=== PATIENT | male | born 1935 | race Caucasian/White ===

== ENCOUNTER 2016-06-29 05:17 | Observation (INO) | payer MEDICARE, OTHER ==
[~2016-06-29] VITALS: Ht 160 cm; Wt 78.5 kg
[~2016-06-29 05:17] MED LIST: APIX5TAB PO; CARV25TA79 PO; CLOP75TA27 PO; CRES10 PO; SPIR25TA PO; VALS40TA2 PO
--- NOTE | 2016-06-29 06:23 | ERA ---
ER Documentation Chief Complaint Date/Time DATE: 06/29/16 TIME: 06:18 Chief Complaint states pacemaker/defibrillator gave him a shock x 1 hour ago HPI This is an 81-year-old male, [place]an-speaking, with history of hypertension and coronary artery disease with a previous coronary artery bypass in August 2001. The patient usually receives his care at [facility]. He was seen and evaluated by his group therapist yesterday for a regular scheduled checkup and there was no abnormalities according to the patient. He indicates that he originally had an AICD placed in 2005. The AICD was replaced in March 2012. The patient indicates that 1 hour prior to arrival, at 4:15 AM, the patient awoke to a shock sensation from his AICD firing. He indicates he has had no recent chest pain or pressure that radiated to the neck arm back or jaw. He indicates he has had no fevers or shaking or chills. He denies any palpitations. He has no shortness of breath at rest or exertion. He is not currently on antibiotics. He denied any associated symptoms of nausea vomiting or diaphoresis. He indicates his battery has not been changed in his AICD since 2011 but has stated by his group therapist the battery is good for 7 years. ROS All systems reviewed and are negative except as per history of present illness. Medications Home Meds Reported Medications Isosorbide Mononitrate* (Isosorbide Mononitrate*) 60 Mg Tab.er.24h, 60 MG PO DAILY, TAB 06/29/16 Dronedarone Hydrochloride* (Multaq*) 400 Mg Tablet, 400 MG PO BID WITH MEALS, TAB 06/29/16 Valsartan* (Diovan*) 80 Mg Tablet, 80 MG PO BID, TAB 06/29/16 Spironolactone* (Aldactone*) 25 Mg Tablet, 12.5 MG PO DAILY, #60 TAB 06/29/16 Carvedilol* (Carvedilol*) 25 Mg Tablet, 25 MG PO BID, #60 TAB 06/29/16 Apixaban* (Eliquis*) 5 Mg Tablet, 5 MG PO BID, TAB 06/29/16 Clopidogrel Bisulfate (Clopidogrel) 75 Mg Tablet, 75 MG PO DAILY, TAB 04/22/14 Rosuvastatin Calcium* (Crestor*) 10 Mg Tablet, 10 MG PO HS, TAB 04/22/14 Discontinued Reported Medications Carvedilol* (Carvedilol*) 25 Mg Tablet, 12.5 MG PO BID, TAB 04/22/14 Valsartan* (Diovan*) 40 Mg Tablet, 40 MG PO BID, TAB 04/22/14 Spironolactone* (Aldactone*) 25 Mg Tablet, 25 MG PO DAILY, TAB 04/22/14 Apixaban* (Eliquis*) 5 Mg Tablet, 5 MG PO DAILY, TAB 04/22/14 Allergies Allergies: Coded Allergies: aspirin (Verified Allergy, Severe, BREATHING/SWELLING, 06/29/16) PMhx/Soc History of Surgery: Yes (PACEMAKER, CABG) Anesthesia Reaction: No Hx Neurological Disorder: No Hx Respiratory Disorders: No Hx Cardiac Disorders: No Hx Psychiatric Problems: No Hx Miscellaneous Medical Probl: Yes (HTN) Hx Alcohol Use: No Hx Substance Use: No Hx Tobacco Use: No Smoking Status: Never smoker Physical Exam Vitals Vital Signs Date Time Temp Pulse Resp B/P Pulse Ox O2 Delivery O2 Flow Rate FiO2 06/29/16 09:55 98.6 57 16 120/88 100 Room Air 06/29/16 06:41 98.6 69 16 115/81 100 Room Air 06/29/16 05:48 71 19 118/87 100 Room Air 06/29/16 05:23 97.6 66 20 137/81 96 Physical Exam Constitutional:Well-developed. Well-nourished. HEENT:Normocephalic. Atraumatic.Pupils were equal round reactive to light. Moist mucous membranes.No tonsillar exudates. Neck: No nuchal rigidity. No lymphadenopathy. No posterior cervical spine tenderness or step-offs. Respiratory: Not using accessory muscles of respiration.Lungs were clear to auscultation bilaterally. No rhonchi. No rales. No wheezing. Cardiovascular: Regular rate regular rhythm.No murmurs. No rubs were appreciated.S1, S2 normal. Distal pulses are palpable 2+ bilaterally. GI: Abdomen was soft. Nontender. Non Distended. No pulsatile abdominal masses or bruits. No rebound. No guarding. Bowel sounds were present and normal. Muscle skeletal: Full range of motion of both the upper and lower extremities bilaterally.Normal muscle tone.No assymetrical calf tenderness or swelling. Skin: No petechia, no purpura. No lesions on the palms or the soles of the feet. No maculopapular rash. NEURO: Patient was alert, awake, orientated x3.No facial droop. Gait observed and normal with no ataxia.Speech had regular rate and rhythm. No focal neurological deficits. Result Diagram: 06/29/1615 06/29/1615 Results 24 hrs Laboratory Tests Test 06/29/16 06:15 Activated Partial Thromboplast Time 29.1Sec Anion Gap 16 Basophils # 0.110^3/ul Basophils % 1.0% Blood Urea Nitrogen 27mg/dl Calcium Level 8.8mg/dl Carbon Dioxide Level 26mmol/L Chloride Level 103mmol/L Creatine Kinase 75IU/L Creatine Kinase Index 1.1 Creatinine 1.27mg/dl Creatinine Kinase MB (Mass) 0.81ng/ml Eosinophils # 0.110^3/ul Eosinophils % 1.7% Glucose Level 99mg/dl Hematocrit 40.4% Hemoglobin 13.1g/dl INR International Normalized Ratio 1.30 Lymphocytes # 1.410^3/ul Lymphocytes % 19.4% Magnesium Level 1.8mg/dl Mean Corpuscular Hemoglobin 31.2pg Mean Corpuscular Hemoglobin Concent 32.4g/dl Mean Corpuscular Volume 96.2fl Mean Platelet Volume 10.6fl Monocytes # 0.910^3/ul Monocytes % 12.3% Neutrophils # 4.710^3/ul Neutrophils % 65.3% Nucleated Red Blood Cells # 0.010^3/ul Nucleated Red Blood Cells % 0.0/100WBC Platelet Count 18027^3/UL Potassium Level 4.0mmol/L Prothrombin Time 16.3Sec Prothrombin Time Ratio 1.3 Red Blood Count 4.2010^6/ul Red Cell Distribution Width 13.2% Sodium Level 141mmol/L Troponin I 0.021ng/ml White Blood Count 7.210^3/ul Procedures/MDM The patient presented to the emergency department with a single shock sensation of his AICD. My clinical evaluation and workup was to distinguish minor causes of chest pain from acute life threatening conditions such as myocardial infarction, pulmonary embolism, aortic dissection, esophageal rupture, cardiac tamponade. The patient was placed on a cardiac catheterization technician and continuous pulse oximetry. IV access established by nursing staff. 12 Lead EKG tracing ordered and reviewed by myself showed: Normal sinus rhythm of 68 bpm and no arrhythmia. OR interval prolonged at 256 ms QRS duration normal. No ST segment elevation No ST segment depression. No changes consistent with acute ischemia. Ancillary laboratory work had been ordered and reviewed by myself there is no electrolyte abnormalities. There is no evidence of leukocytosis. Magnesium was normal. Cardiac enzymes not elevated. The patient's [employer] identification card indicated the patient's model number was [id number] placed March 24, 2012. I have placed a call to the [email or web address] to inform them to interrogate the AICD. They indicated there would be a delay given that they are at another hospital in the OR at this moment time. Observation Note: Time: 6 hours Family Hx: No Hypertension Evaluation: Multiple exams showed no chest pain but while in the cardiac catheterization technician the patient did appear to have irregular rhythms. I repeated the EKG and at the time the patient was sinus bradycardia with a first-degree AV block with ischemic changes in the lateral leads. Therefore I did feel the patient required admission for observation and interrogation of the patient's AICD. The [employer] techBrooke, states she will come to evaluate the patient during his hospital observation. The patient will be admitted for observation under the care of the hospitalist Dr. Rogers. Departure Diagnosis: Primary Impression: AICD malfunction Qualified Code: T82.9XXA - AICD malfunction, initial encounter Condition: Serious DEANGELO YOUNG Jun 29, 2016 06:23
--- NOTE | 2016-06-29 06:26 | RADRPT ---
PROCEDURE: CHEST - 1 VIEW CLINICAL INDICATION: 81-year-old male with chest pain. TECHNIQUE: A single frontal AP view of the chest was performed portably. The images were reviewed on a PACS workstation. COMPARISON: Chest x-ray April 22, 2014. FINDINGS: There is a left-sided AICD device. The patient has had a prior median sternotomy. The cardiomedias tinal silhouette is enlarged. The thoracic aortic arch is mildly calcified. There is a shallow ins piration. There is mild bibasilar subsegmental atelectasis. There is no evidence for an infiltrate . There is no evidence for congestive heart failure. There is no evidence for pneumothorax. IMPRESSION: 1. Left-sided AICD device. 2. Status post median sternotomy. 3. Cardiomegaly. 4. Calcified thoracic aortic arch. 5. Shallow inspiration. 6. Mild bibasilar subsegmental atelectasis. .Jhonny Moraes MD, Date Time Electronically viewed and signed by .Jhonny Moraes MD, on 06/29/2016 06:26 .M/
[2016-06-29 06:27] LABS: ADD SCAN DIFF NO
[2016-06-29 06:33] LABS: BASOPHIL # 0.1 10^3/ul (0.0-0.1); EOSINOPHILS # 0.1 10^3/ul (0.0-0.5); EOSINOPHILS % 1.7 % (0.0-7.0); HEMATOCRIT 40.4 % (42.0-52.0); HEMOGLOBIN 13.1 g/dl (14.0-18.0); LYMPHOCYTES # 1.4 10^3/ul (0.8-2.9); LYMPHOCYTES % 19.4 % (15.0-51.0); MEAN CORPUSCULAR HEMOGLOBIN 31.2 pg (29.0-33.0); MEAN CORPUSCULAR HGB CONC 32.4 g/dl (32.0-37.0); MEAN CORPUSCULAR VOLUME 96.2 fl (82.0-101.0); MEAN PLATELET VOLUME 10.6 fl (7.4-10.4); MONOCYTE # 0.9 10^3/ul (0.3-0.9); MONOCYTES % 12.3 % (0.0-11.0); NEUTROPHIL # 4.7 10^3/ul (1.6-7.5); NEUTROPHILS % 65.3 % (39.0-77.0); PLATELET COUNT 152 10^3/UL (140-415); RED CELL DISTRIBUTION WIDTH 13.2 % (11.5-14.5); WHITE BLOOD COUNT 7.2 10^3/ul (4.8-10.8)
[2016-06-29 06:41] LABS: INR 1.3; PROTIME 16.3 Sec (12.2-14.2); PT RATIO 1.3
[2016-06-29 06:42] LABS: PARTIAL THROMBOPLASTIN TIME 29.1 Sec (25.0-35.0)
[2016-06-29 06:45] LABS: CREATININE 1.27 mg/dl (0.61-1.24)
[2016-06-29 06:46] LABS: CALCIUM 8.8 mg/dl (8.4-10.2); MAGNESIUM 1.8 mg/dl (1.7-2.5)
[2016-06-29 06:58] LABS: TROPONIN-I 0.02 ng/ml (0.00-0.12); TROPONIN-I 0.021 ng/ml (0.00-0.12)
[2016-06-29 07:09] LABS: CK-MB 0.81 ng/ml (0.0-2.4)
[2016-06-29] MEDS ORDERED: CARV25TA79 PO (09:44)
[2016-06-29] MEDS ORDERED: APIX5TAB PO (09:44)
[2016-06-29] MEDS ORDERED: SPIR25TA PO (09:45)
[2016-06-29] MEDS ORDERED: VALS80TA2 PO (09:46)
[2016-06-29] MEDS ORDERED: DRON400T2 PO (09:46)
[2016-06-29] MEDS ORDERED: ISOS60TA PO (09:47)
--- NOTE | 2016-06-29 17:24 | HP ---
Date/Time of Note Date/Time of Note DATE: 06/29/16 TIME: 17:06 Assessment/Plan VTE Prophylaxis VTE Prophylaxis Intervention: LMWH Lines/Catheters IV Catheter Type (from Nrs): Saline Lock Assessment/Plan Assessment/Plan 81 yo M awakened by shock from AICD 1. NVST 2. known CAD s/p CABG in the past + likely Ischemic CM 3. Asymptomatic bradycardia: likely 2/2 meds 4. Mild chronic renal insufficiency 5. Chronic NC anemia 6. Dyslipidemia 7. Probable paroxysmal Afib PLAN: * will admit for Obs / r/o ACS / obtain cardio review / 2D echo * Continue home multaq and coreg (but reduce dose of coreg to previous dose bc of bradycardia) * Patient on eliquis and plavix , continue both * monitor electrolytes * Provide PRN pain control/ antiemetics/ antipyretics/ supportive care * Further evaluation and treatment will be based on clinical course PROPHYLAXIS: eliquis / protonix Plan of care has been discussed with patient, questions answered and patient has verbalized understanding. Total time spent on this evaluation >35mins HPI/ROS Admit Date/Time Admit Date/Time 06/29/16 Hx of Present Illness PRESENTING COMPLAINT: Awoken by his defibrillator firing HISTORY OF PRESENTING COMPLAINT: 81 yo M with a PMH of HTN and CAD s/p CABG who was awoken this am by a shock from his AICD. This was said to have been placed in 2005 and replaced in 2011. He denies chest pain, he was seen by his routine editor index yesterday and his coreg increased from 12.5mg to 25 mg. He is currently comfortable now without SOB, diaphoresis, nausea or vomiting. No headaches or dizziness or jaw pain. AICD has been interrogated by [employer] and patient was found to have NSVT at the time of incident per report ROS 12 point review if systems was done and pertinent findings are as noted. PMH/Family/Social Past Medical History * HTN * CAD * Dyslipidemia * ?isch SM s/p AICD Past Surgical History CABG AICD placement Family History Significant Family History: no pertinent family hx Social History Alcohol Use: none Smoking Status: Never smoker Drug Use: none Exam/Review of Systems Vital Signs Vitals VS - Last 72 Hours, by Label Date Time Temp Pulse Resp B/P Pulse Ox O2 Delivery O2 Flow Rate FiO2 06/29/16 16:05 97.8 62 16 112/64 100 Room Air 06/29/16 13:57 98.1 68 16 102/86 100 Room Air 06/29/16 09:55 98.6 57 16 120/88 100 Room Air 06/29/16 06:41 98.6 69 16 115/81 100 Room Air 06/29/16 05:48 71 19 118/87 100 Room Air 06/29/16 05:23 97.6 66 20 137/81 96 Vital Signs Date Time Temp Pulse Resp B/P Pulse Ox O2 Delivery O2 Flow Rate FiO2 06/29/16 16:05 97.8 62 16 112/64 100 Room Air Exam Constitutional: alert, oriented, other (obses), No distress Psych: nl mood/affect Head: atraumatic, normocephalic Eyes: PERRL Neck: non-tender, supple Respiratory: clear to auscultation, diminished breath sounds, No crackles/rales, No wheezing Cardiovascular: nl pulses, regular rate and rhythm, No murmurs/extra sounds Gastrointestinal: bowel sounds, non-tender, soft Extremities: No edema Neurological: nl mental status, nl speech, nl strength Labs Result Diagram: 06/29/1615 06/29/1615 Procedures Procedures Laboratory Tests Test 06/29/16 06:15 Activated Partial Thromboplast Time 29.1Sec Anion Gap 16 Basophils # 0.110^3/ul Basophils % 1.0% Blood Urea Nitrogen 27mg/dl Calcium Level 8.8mg/dl Carbon Dioxide Level 26mmol/L Chloride Level 103mmol/L Creatine Kinase 75IU/L Creatine Kinase Index 1.1 Creatinine 1.27mg/dl Creatinine Kinase MB (Mass) 0.81ng/ml Eosinophils # 0.110^3/ul Eosinophils % 1.7% Glucose Level 99mg/dl Hematocrit 40.4% Hemoglobin 13.1g/dl INR International Normalized Ratio 1.30 Lymphocytes # 1.410^3/ul Lymphocytes % 19.4% Magnesium Level 1.8mg/dl Mean Corpuscular Hemoglobin 31.2pg Mean Corpuscular Hemoglobin Concent 32.4g/dl Mean Corpuscular Volume 96.2fl Mean Platelet Volume 10.6fl Monocytes # 0.910^3/ul Monocytes % 12.3% Neutrophils # 4.710^3/ul Neutrophils % 65.3% Nucleated Red Blood Cells # 0.010^3/ul Nucleated Red Blood Cells % 0.0/100WBC Platelet Count 79620^3/UL Potassium Level 4.0mmol/L Prothrombin Time 16.3Sec Prothrombin Time Ratio 1.3 Red Blood Count 4.2010^6/ul Red Cell Distribution Width 13.2% Sodium Level 141mmol/L Troponin I 0.021ng/ml White Blood Count 7.210^3/ul PROCEDURE: CHEST - 1 VIEW CLINICAL INDICATION: 81-year-old male with chest pain. TECHNIQUE: A single frontal AP view of the chest was performed portably. The images were reviewed on a PACS workstation. COMPARISON: Chest x-ray April 22, 2014. FINDINGS: There is a left-sided AICD device. The patient has had a prior median sternotomy. The cardiomediastinal silhouette is enlarged. The thoracic aortic arch is mildly calcified. There is a shallow inspiration. There is mild bibasilar subsegmental atelectasis. There is no evidence for an infiltrate. There is no evidence for congestive heart failure. There is no evidence for pneumothorax. IMPRESSION: 1. Left-sided AICD device. 2. Status post median sternotomy. 3. Cardiomegaly. 4. Calcified thoracic aortic arch. 5. Shallow inspiration. 6. Mild bibasilar subsegmental atelectasis. .Jhonny Moraes MD, Date Time Electronically viewed and signed by .Jhonny Moraes MD, on 06/29/2016 06:26 EKG reviewed and was NSR with rate of 68 and multiple PVCs, no ST elevations or depression, but grossly abn EKG. TORI GANDARA Jun 29, 2016 17:16
[2016-06-29] MEDS ORDERED: SOD CHLORIDE 0.9% 1,000 ML IV SCH (17:30)
[2016-06-29] MEDS ORDERED: DRONEDARONE HYDROCHLORIDE 400 MG TAB PO SCH (18:00)
[2016-06-29 18:11] VITALS: TEMP 97.7
[2016-06-29 18:32] LABS: MAGNESIUM 1.8 mg/dl (1.7-2.5); PHOSPHORUS 3.5 mg/dl (2.5-4.9)
[2016-06-29 18:36] LABS: CREATINE KINASE 67 IU/L (23-200)
[2016-06-29 18:45] LABS: CK-MB 0.51 ng/ml (0.0-2.4)
[2016-06-29 18:50] LABS: TROPONIN-I < 0.010 ng/ml (0.00-0.12)
[2016-06-29 19:01] VITALS: PULSE 69
[2016-06-29 19:52] VITALS: Ht 160 cm; Wt 78.5 kg
[2016-06-29 20:00] VITALS: BP 142/89; RESP 16
[2016-06-29 20:24] VITALS: PULSE 73
[2016-06-29] MEDS ORDERED: ATORVASTATIN 40 MG TAB PO SCH (21:00)
[2016-06-29] MEDS ORDERED: NON-FORMULARY/PATIENT OWN MED (Rosuvastatin Calcium* (Crestor*) 10 MG) PO SCH (21:00)
[2016-06-29] MEDS: DOCUSATE SODIUM 100 MG CAP PO SCH (21:23)
[2016-06-29] MEDS: APIXABAN 5 MG TABLET PO SCH (21:23)
[2016-06-29] MEDS: PANTOPRAZOLE (EC) 40 MG TAB PO SCH (21:24)
[2016-06-29] MEDS: AMIODARONE 200 MG TAB PO SCH (21:24)
[2016-06-29] MEDS: VALSARTAN 80 MG TAB PO SCH (21:32)
[2016-06-29 23:07] VITALS: BP 129/82; RESP 16
[2016-06-30] VITALS (10 sets, daily range): BP systolic 108–143; BP diastolic 63–83; PULSE 57–74; RESP 16
[2016-06-30 06:06] LABS: ADD SCAN DIFF NO
[2016-06-30 06:10] LABS: BASOPHIL # 0.1 10^3/ul (0.0-0.1); BASOPHILS % 0.8 % (0.0-2.0); EOSINOPHILS # 0.1 10^3/ul (0.0-0.5); EOSINOPHILS % 1.9 % (0.0-7.0); HEMOGLOBIN 12.5 g/dl (14.0-18.0); LYMPHOCYTES # 1.5 10^3/ul (0.8-2.9); LYMPHOCYTES % 24.9 % (15.0-51.0); MEAN CORPUSCULAR HEMOGLOBIN 31.8 pg (29.0-33.0); MEAN CORPUSCULAR HGB CONC 32.9 g/dl (32.0-37.0); MEAN CORPUSCULAR VOLUME 96.7 fl (82.0-101.0); MEAN PLATELET VOLUME 10.7 fl (7.4-10.4); MONOCYTE # 0.8 10^3/ul (0.3-0.9); MONOCYTES % 13.7 % (0.0-11.0); NEUTROPHIL # 3.5 10^3/ul (1.6-7.5); NEUTROPHILS % 58.5 % (39.0-77.0); PLATELET COUNT 162 10^3/UL (140-415); RED BLOOD COUNT 3.93 10^6/ul (4.70-6.10); RED CELL DISTRIBUTION WIDTH 13.2 % (11.5-14.5); WHITE BLOOD COUNT 5.9 10^3/ul (4.8-10.8)
[2016-06-30 06:25] LABS: POTASSIUM 3.9 mmol/L (3.5-5.1)
[2016-06-30 06:28] LABS: CALCIUM 8.4 mg/dl (8.4-10.2); CREATININE 1.14 mg/dl (0.61-1.24)
[2016-06-30 06:29] LABS: CHOL/HDL RATIO 2.8 RATIO
[2016-06-30] MEDS: PANTOPRAZOLE (EC) 40 MG TAB PO SCH (06:53)
[2016-06-30 06:54] LABS: THYROID STIMULATING HORMONE 0.965 MIU/L (0.465-4.680)
[2016-06-30] MEDS: DOCUSATE SODIUM 100 MG CAP PO SCH (08:43)
[2016-06-30] MEDS: VALSARTAN 80 MG TAB PO SCH (08:45)
[2016-06-30] MEDS: AMIODARONE 200 MG TAB PO SCH (08:45)
[2016-06-30] MEDS: APIXABAN 5 MG TABLET PO SCH (08:52)
[2016-06-30] MEDS ORDERED: CLOPIDOGREL 75 MG TAB PO SCH (09:00)
[2016-06-30] MEDS ORDERED: SPIRONOLACTONE 25 MG TAB PO SCH (09:00)
[2016-06-30] MEDS ORDERED: ISOSORBIDE MONONITRATE(SR)60 MG TAB PO SCH (09:00)
[2016-06-30] MEDS ORDERED: AMIO200T2 PO (10:52)
[2016-06-30] MEDS ORDERED: CARV25TA79 PO (10:52)
--- NOTE | 2016-06-30 14:50 | CONS ---
Date/Time of Note Date/Time of Note DATE: 06/30/16 TIME: 14:47 Assessment/Plan Assessment/Plan Additional Assessment/Plan 1. VT - 330 msec cycle - s/p appropriate ICD shock - amiodarone started - I spoke with [facility] EP team - pt will be seen tomorrow at [facility] for post VT ablation. 2. known CAD s/p CABG in the past + likely Ischemic CM - no CP now, R/o PR 3. Asymptomatic bradycardia: likely 2/2 meds - ICD for pacing 4. Mild chronic renal insufficiency- stbale now 5. Chronic NC anemia 6. Dyslipidemia 7. Paroxysmal Afib - on anticoagulation, stable Consultation Date/Type/Reason Admit Date/Time Jun 29, 2016 at 17:14 Initial Consult Date 24 HR Interval Summary Free Text/Dictation s/p appropriate ICD shock - amiodarone started - I spoke with [facility] EP team - pt will be seen tomorrow at [facility] for post VT ablation. ROS: No fever, no chills, no nausea, no vomiting, no diarrhea/constipation No recent weight changes No chest pain, no PND, no orthopnea No dizziness, blurred vision No thirst, no heat or cold intolerance Exam/Review of Systems Vital Signs Vitals Vital Signs Date Time Temp Pulse Resp B/P Pulse Ox O2 Delivery O2 Flow Rate FiO2 06/30/16 12:18 62 06/30/16 11:31 97.6 16 108/63 90 06/29/16 18:11 Room Air Exam General: WN/WD/NAD, AOx 3 HEENT: Unicetric/atraumatic/EOMI (follows commands) NECK: JVD elevated, no thyromegaly Lymph: no lymphadenopathy HEART: regular with no S3, II/ systolic murmur at apex, ICD LUNGS: Coarse sounds ABD: soft, NT, ND, +BS : Intact Neuro: non focal SKIN: chronic changes EXT: trace edema Results Result Diagram: 06/30/16 0543 06/30/16 0548 Results 24 hrs Laboratory Tests Test 06/29/16 17:00 06/29/16 18:15 06/30/16 05:32 06/30/16 05:43 Magnesium Level 1.8 Phosphorus Level 3.5 Creatine Kinase 67 Creatine Kinase Index 0.8 Creatinine Kinase MB (Mass) 0.51 Troponin I < 0.010 Hemoglobin A1c 5.8 Basophils # 0.1 Basophils % 0.8 Eosinophils # 0.1 Eosinophils % 1.9 Hematocrit 38.0 L Hemoglobin 12.5 L Lymphocytes # 1.5 Lymphocytes % 24.9 Mean Corpuscular Hemoglobin 31.8 Mean Corpuscular Hemoglobin Concent 32.9 Mean Corpuscular Volume 96.7 Mean Platelet Volume 10.7 H Monocytes # 0.8 Monocytes % 13.7 H Neutrophils # 3.5 Neutrophils % 58.5 Nucleated Red Blood Cells # 0.0 Nucleated Red Blood Cells % 0.0 Platelet Count 162 Red Blood Count 3.93 L Red Cell Distribution Width 13.2 White Blood Count 5.9 Test 06/30/16 05:48 Anion Gap 15 Blood Urea Nitrogen 22 H Calcium Level 8.4 Carbon Dioxide Level 26 Chloride Level 104 Cholesterol Level 90 L Cholesterol/HDL Ratio 2.8 Creatinine 1.14 Glucose Level 93 HDL Cholesterol 32 LDL Cholesterol, Calculated 41 Potassium Level 3.9 Sodium Level 141 Thyroid Stimulating Hormone (TSH) 0.965 Triglycerides Level 87 Medications Medications Current Medications Clopidogrel Bisulfate (plaVIX) 75 mg DAILY PO Last administered on 06/30/16 08 :43; Admin Dose 75 MG; Start 06/30/16 at 09:00 Isosorbide Mononitrate (Imdur) 60 mg DAILY PO Last administered on 06/30/16 08 :44; Admin Dose 60 MG; Start 06/30/16 at 09:00 Spironolactone (Aldactone) 12.5 mg DAILY PO Last administered on 06/30/16 08: 44; Admin Dose 12.5 MG; Start 06/30/16 at 09:00 Valsartan (Diovan) 80 mg BID PO Last administered on 06/30/16 08:45; Admin Dose 80 MG; Start 06/29/16 at 21:00 Apixaban (Eliquis) 5 mg BID PO Last administered on 06/30/16 08:52; Admin Dose 5 MG; Start 06/29/16 at 21:00 Pantoprazole (Protonix Tab) 40 mg BID@,18 PO Last administered on 06/30/16 06:53; Admin Dose 40 MG; Start 06/29/16 at 18:00 Docusate Sodium (Colace) 100 mg BID PO Last administered on 06/30/16 08:43; Admin Dose 100 MG; Start 06/29/16 at 21:00 Amiodarone HCl (Cordarone) 200 mg BID PO Last administered on 06/30/16 08:45; Admin Dose 200 MG; Start 06/29/16 at 21:00 Carvedilol (Coreg) 12.5 mg BID PO Last administered on 06/30/16 08:46; Admin Dose 12.5 MG; Start 06/29/16 at 21:00 Atorvastatin Calcium (Lipitor) 40 mg DAILY@21 PO Last administered on 21:23; Admin Dose 40 MG; Start 06/29/16 at 21:00 ROGER LOCO MD Jun 30, 2016 14:50
--- NOTE | 2016-06-30 15:41 | RADRPT ---
Echocardiogram Report ADDENDUM Patient Name: LUIS DENISE Gender: Male Date: 1935 Study Date: 30-Jun-2016 Streetsweeper Operator: [facility] Location: 503 Ref. Physician: TORI GANDARA Quality: Adequate Procedures: Transthoracic echocardiogram with complete 2D, M-Mode, and doppler examination. Indications: ARRYTHMIA. 2D/M Mode Doppler Measurement Value Normal Ranges Measurement Value Normal Ranges LVIDd 2D 5.3 3.5 - 5.6 cm AV Peak Lloyd 1.1 m/sec LVPWd 2D 1.2 0.6 - 1.1 cm AV Peak PG 4.8 mmHg IVSd 2D 1.2 0.6 - 1.1 cm LVOT Peak Lloyd 0.7 m/sec TR Peak Lloyd 2.5 m/sec TR Peak PG 26.0 mmHg Findings Left Ventricle: Normal left ventricular cavity size. Mild concentric left ventricular hypertrophy. Moderate global left ventricular systolic dysfunction. Ejection fraction is visually estimated at 35 %. Abnormal Diastolic Function. Right Ventricle: Normal right ventricular size. Normal right ventricular systolic function. Pacemaker right heart. Left Atrium: There is mild enlargement of left atrium. Right Atrium: There is mild enlargement of right atrium. Prominent Eustachian valve (normal variant). Mitral Valve: Mild mitral leaflet calcification. Mild mitral annular calcification. Mild to moderate mitral valve regurgitation. Aortic Valve: Trileaflet aortic valve. Trace aortic valve regurgitation. Tricuspid Valve: Tricuspid valve not well visualized. Estimated peak PA systolic pressure 43 mmHg. There is mild tricuspid regurgitation. Pulmonic Valve: There is trace pulmonic regurgitation. Pericardium: Normal pericardium with no significant pericardial effusion. Aorta: Normal aortic root. IVC: Dilated inferior vena cava with poor inspiratory collapse consistent with elevated right atrial pressures. Conclusions 1.Normal left ventricular cavity size. Mild concentric left ventricular hypertrophy. Moderate global left ventricular systolic dysfunction. Ejection fraction is visually estimated at 35 %. Abnormal Diastolic Function. 2.Mild mitral leaflet calcification. Mild mitral annular calcification. Mild to moderate mitral valve regurgitation. 3.Trileaflet aortic valve. Trace aortic valve regurgitation. 4.Tricuspid valve not well visualized. Estimated peak PA systolic pressure 43 mmHg. There is mild tricuspid regurgitation. Electronically Signed By: Patient Name: LUIS DENISE Study Date: 30-Jun-2016 [id number]
--- NOTE | 2016-06-30 20:01 | DS ---
DATE OF ADMISSION: 06/29/2016 DATE OF DISCHARGE: 06/30/2016 PRESENTING COMPLAINT: AICD firing. ADMISSION DIAGNOSES: An 81-year-old male awakened by shock from AICD with: 1. Nonsustained ventricular tachycardia. 2. Known coronary artery disease status post CABG in the past with likely ischemic cardiomyopathy. 3. Asymptomatic bradycardia. 4. Mild chronic renal insufficiency. 5. Chronic normocytic anemia. 6. Dyslipidemia. 7. Probable paroxysmal atrial fibrillation. CONSULTS ON THE CASE: Dr. Osorio Guerrero from Cardiology. INTERVENTIONS: The patient's AICD was interrogated by [employer]. The patient was also admitted for an ACS rule out with 3 sets of cardiac enzymes. He also had a chest x-ray that showed the presence of a left-sided AICD device, status post median sternotomy, cardiomegaly, mild bibasilar subsegment al atelectasis. SHORT HOSPITALIZATION COURSE: This patient is a very pleasant 81-year-old male who came to the emerg ency room after he was woken up from sleep by his shock given to him by his defibrillator. At the ti me of our eval in the ER he had no chest pain. He had no shortness of breath. He felt well, but hi s family thought that he should get checked out because of what had happened. He had just seen his primary car rider at [facility] the day before and his carvedilol has been increased from 12.5 mg to 25 mg, which he had commenced taking that night. He was seen in the ER and his EKG had some PVCs that were mildly concerning and we spoke with his car rider over at [facility] and the decision was made to go ahead and admit him and rule him out for an acute coronary syndrome. We also started him on ami odarone and at this time the patient has done quite well. Cardiology also saw him and the cardiolog ist also spoke with the primary car rider at [facility]. On the monitor he has been in sinus rhythm wit h a heart rate in the 60s. He has had no further episodes of ventricular tachycardia, which was the rhythm when the defibrillator kicked in. He apparently has just had a recent workup including a ___ __ over at [facility] and no further intervention per cardiology is required at this time. The patient is encouraged to go home and stay compliant with his diet and continue routine follow up with his own c ardiologist. He and his family is also encouraged to return to the ER any time if they have any conc erns or if similar situations occur. E DISCHARGE DIAGNOSES: 1. Nonsustained ventricular tachycardia. 2. Known coronary artery disease status post CABG in the past with likely ischemic cardiomyopathy. 3. Asymptomatic bradycardia. 4. Mild chronic renal insufficiency. 5. Chronic normocytic anemia. 6. Dyslipidemia. 7. Probable paroxysmal atrial fibrillation. HOME MEDICATIONS: 1. Amiodarone 200 p.o. b.i.d. 2. Eliquis 5 b.i.d. 3. Plavix 75 daily. 4. Imdur 60 daily. 5. Crestor 10 at bedtime. 6. Aldactone 12.5 b.i.d. 7. Diovan 80 b.i.d. 8. Carvedilol was changed back 12.5 b.i.d. DISCHARGE CONDITION: Stable. DIET: Recommended diet, low cholesterol, low fat. ACTIVITIES: As tolerated. Time spent on discharge has been 45 minutes. Dictated By: TORI GANDARA MD, BA/JESSICA Conf#: [id number] DID#: [id number]
--- NOTE | 2016-07-01 07:23 | CONS ---
DATE OF ADMISSION: 06/29/2016 DATE OF CONSULTATION: 06/29/2016 REFERRING PHYSICIAN: Tori Gandara MD REASON FOR EVALUATION: Status post ICD shock. HISTORY OF PRESENT ILLNESS: Mr. Riley is an 81-year-old gentleman patient ____ ischemic cardiomyopa thy, ICD in place, who was seen by his primary acquisitions analyst yesterday for evaluation of nonsustained VT. The patient had his beta radha dosage increased yesterday. He took increased dose of beta b locker in the morning, he felt a little dizzy, and then he had an episode of defibrillator going off . His device was already interrogated. He had received a shock for a fast VT, 30 msec, which is ap propriately recognized and shocked. I have been asked to see the patient in consultation. The renato ent appears to be hemodynamically stable at the moment and it does not appear that he is going to ru le in for acute myocardial infarction. For now, I think it would be reasonable to continue current medical therapy. The patient is not on any antiarrhythmic medications. He does have history of atr ial fibrillation, for which he takes Eliquis and hopefully he can continue his current therapy. I w ill try to contact his primary specimen boss to see if any adjustments are warranted. Other t hodge that, ____ followup. We will rule the patient out for acute ischemia. PAST MEDICAL HISTORY 1. Hypertension. 2. Dyslipidemia. 3. History of ischemic cardiomyopathy. 4. History of ICD placement at [facility]. 5. History of VT in the past. 6. History of atrial fibrillation. ALLERGIES: THE PATIENT IS ALLERGIC TO ASPIRIN. SOCIAL HISTORY: The patient does not smoke, does not drink, does not use any drugs. FAMILY HISTORY: Negative for sudden cardiac or premature coronary artery disease. MEDICATIONS 1. Mononitrate 60 mg p.o. twice a day. 2. ____ 3. Valsartan 80 mg p.o. b.i.d. 4. Spironolactone 25 mg p.o. daily. 5. Coreg 25 mg p.o. b.i.d. 4. Eliquis 5 mg p.o. once a day. 5. Plavix 75 mg p.o. daily. 6. Rosuvastatin. REVIEW OF SYSTEMS CONSTITUTIONAL: No fevers, no chills. ICD discharges, as described. HEENT: No changes in vision or hearing. CARDIAC: No chest pain reported now. RESPIRATORY: Short of breath. GASTROINTESTINAL: No nausea, vomiting, diarrhea, constipation. GENITOURINARY: No dysuria, hematuria, ____. NEUROLOGIC: No focal neurologic deficits. HEMATOLOGIC: History of secondary hypercoagulable state. PHYSICAL EXAMINATION VITAL SIGNS: Temperature is 98.6, heart rate 57, blood pressure 120/80. GENERAL: He is a well-nourished gentleman in no acute distress, alert and oriented x3, aware of his condition. HEENT: Head is normocephalic, atraumatic. Eyes anicteric. NECK: Supple. JVD 6 to 7 cm. There is no lymphadenopathy or thyromegaly. HEART: ICD is in place. PMI is displaced. Has holosystolic murmur. Chest ____. PMI is minimally displaced. LUNGS: Coarse at the base. ABDOMEN: Distended, bowel sounds are present. There is no hepatosplenomegaly. GENITOURINARY: Intact. EXTREMITIES: Trace edema. LABORATORY DATA: White blood cell count 7.3, hemoglobin is 10.1, creatinine is 1.2. ELECTROCARDIOGRAM: Read by me shows sinus rhythm with first-degree AV block. The patient has inter mittent PVCs and low-voltage QRS complexes. ASSESSMENT AND PLAN 1. ICD discharge. Patient is status post ICD discharge. Discharge appears to be appropriate, robert ce was interrogated. There is no obvious evidence of ischemia now. Device appropriately recognized the fast VT at a rate of 330 msec. The patient was recently initiated on an additional dose of bet a radha. He did not tolerate the medication well because of hypotension; however, there is not en ough time for medication to take effect. I think the options here are to continue beta radha to r educe ____, initiate antiarrhythmic medications. I think sotalol might be an option versus amiodaro ne. I do not want to make a decision before I discuss this further with patient's primary cardiolog ist/electrophysiology. I placed a call to their office and will await their response. For now, we will rule the patient out for acute ischemia. 2. Congestive heart failure. The patient has history of heart failure, ischemic cardiomyopathy, bourne s protection with ICD. He is on reasonable medical management. He is on an ARB and beta radha, c ontinue for now. 3. Congestive heart failure. Continue congestive heart failure therapy as noted. 4. Hypertension. Blood pressure well-controlled. Continue medical therapy. 5. Renal failure. Creatinine is slightly elevated, baseline unknown to me. We will follow. 6. Abnormal EKG. We will monitor closely; as noted above, patient was protected with ICD. ICD bijal ropriate function has been ascertained. 7. Dyslipidemia. We will continue the patient's statin. I would like to thank Dr. Gandara for referring this patient for my evaluation. Dictated By: ROGER LOCO MD ML/NTS Conf#: [id number] DID#: [id number] CC: TORI GANDARA MD;*EndCC*
== END 2016-06-30 16:50 | disposition home or self-care (01) ==
LOC: E/R 05:17 → UNDOADMOB 17:14 → TEL 17:14
PROVIDERS: ADMIT Family Medicine; ATTEND Family Medicine
DX: I47.2 Ventricular tachycardia (principal); I25.10 Atherosclerotic heart disease of native coronary artery without angina pectoris; D64.9 Anemia, unspecified; E78.5 Hyperlipidemia, unspecified; Z79.02 Long term (current) use of antithrombotics/antiplatelets; Z95.1 Presence of aortocoronary bypass graft
CPT/HCPCS: 36415; 71010; 80048; 80061; 82550; 82553; 83036; 83735; 84100; 84443; 84484; 85025; 85610; 85730; 93005; 93306; 99285; G0378; J7030

== ENCOUNTER 2017-08-28 15:52 | Emergency (ER) | END 2017-08-28 22:05 | disposition left against medical advice (07) ==

== ENCOUNTER 2018-11-11 17:09 | Inpatient (IN) | payer MEDICARE, OTHER ==
[~2018-11-11] VITALS: Ht 160 cm; Wt 75.1 kg
[~2018-11-11 17:09] MED LIST changes: +ALFU10TA2 PO; +BUDE6.9H INHALATION; -CLOP75TA27 PO; -CRES10 PO; +DRON400T2 PO; +FINA5TAB4 PO; +FURO40TA4 PO; +ISOS60TA PO; +METH10TA5 PO; +POTA20TA15 PO; +RSV10T PO; +SERT25TA PO; -SPIR25TA PO; +TIOT18CA INHALATION; -VALS40TA2 PO; +VALS80TA2 PO
[2018-11-11] MEDS ORDERED: SOD CHLORIDE 0.9% 500 ML IV STA (17:15)
[2018-11-11] MEDS ORDERED: NITR0.4T32 SL (18:22)
[2018-11-11] MEDS ORDERED: METH-493 PO (18:22)
[2018-11-11] MEDS ORDERED: RSV10T PO (18:23)
[2018-11-11] MEDS ORDERED: SPIR25TA PO (18:23)
[2018-11-11] MEDS ORDERED: LOSA25TA12 PO (18:24)
[2018-11-11] MEDS ORDERED: ASC500 PO (18:24)
[2018-11-11] MEDS ORDERED: HC30CR25 TOP (18:25)
[2018-11-11] MEDS ORDERED: FURO20TA3 PO (18:26)
[2018-11-11] MEDS ORDERED: FLUT16SP17 NASAL (18:26)
[2018-11-11] MEDS ORDERED: APIX5TAB PO (18:27)
[2018-11-11] MEDS ORDERED: CARV25TA79 PO (18:28)
[2018-11-11] MEDS ORDERED: CLOP75TA19 PO (18:28)
[2018-11-11] MEDS ORDERED: DRON400T2 PO (18:28)
[2018-11-11] MEDS ORDERED: ALBU90AE INHALATION (18:29)
[2018-11-11] MEDS ORDERED: BUDE6.9H INHALATION (18:29)
--- NOTE | 2018-11-11 18:29 | CONS ---
DATE OF ADMISSION: 11/11/2018 DATE OF CONSULTATION: 11/11/2018 REASON FOR CONSULTATION: I was asked to see this gentleman for concerns of confusion. HISTORY OF PRESENT ILLNESS: The patient is an 83-year-old male with past medical history of hyperten jodi, coronary artery disease and congestive heart failure. The patient was apparently in his [facility] until just prior to 4:00 p.m. at which point in time he experienced confusion. Th e patient is a poor historian. History was taken through an translator interpreter who was anxious and likewise a poor historian. It is unclear what new confusion the patient has had. The patient complains of s ome numbness of his right hand. It is unclear how long that has been taking place. The patient was observed at some point in time throughout his stay to have some right arm weakness, although this is not able to be redemonstrated. The patient does endorse taking some whiskey earlier today. The renato ent does not have any objective significant focal motor changes or difficulty with speech or problems with aphasia. The patient does appear to be confused. The patient denies any recent illness. PAST MEDICAL HISTORY: As previously described. PHYSICAL EXAMINATION: GENERAL: The patient is in bed. He is agitated. He is speaking clearly. NEUROLOGIC: He is able to follow some basic commands but requires redirection. The patient's facies is symmetric. His extraocular movements are full. His strength is 5/5 throughout. He does not dem onstrate any drift. He does grab his right hand frequently but demonstrates normal strength on that side. The patient's noncontrast head CT shows chronic lacunar changes with no acute findings. ASSESSMENT: An 83-year-old with encephalopathy. Possible causes include metabolic encephalopathy, a stroke cannot be excluded. However, if the patient does have a small stroke accounting for his conf usion, the exact time of onset is really unclear. I would check a thyroid function test, LFTs and a mmonia. I checked the patient's chemistries and looked for a urinalysis. If the patient's symptoms persist, an MRI scan may be valuable to look for ischemic changes. However, the patient does not bijal ear to be a good TPA candidate or endovascular candidate based on the uncertainty of the timing of hi s symptoms and lack of focality. I shared my findings with the emergency department physician. Dictated By: HAYDER SAINI Conf#: [id number] DID#: [id number]
[2018-11-11] MEDS ORDERED: ALFU10TA2 PO (18:30)
[2018-11-11] MEDS ORDERED: ONDANSETRON 4 MG INJ IV PRN (19:30)
[2018-11-11] MEDS ORDERED: ACETAMINOPHEN 325 MG TAB PO PRN (19:30)
[2018-11-11] MEDS ORDERED: ACETAMINOPHEN 650 MG SUPP PR PRN (21:00)
[2018-11-11] MEDS ORDERED: NACL 0.9% 3 ML SYG IV SCH (21:00)
[2018-11-11] MEDS: DEXTROSE 5%-0.45% NACL 1,000 ML IV SCH (21:06)
[2018-11-11] MEDS ORDERED: SOD CHLORIDE 0.9% 100 ML ONE (21:10)
[2018-11-11] MEDS ORDERED: IOHEXOL 100 ML ONE (21:10)
--- NOTE | 2018-11-11 21:59 | HP ---
Date/Time of Note Date/Time of Note DATE: 11/11/18 TIME: 21:58 Assessment/Plan VTE Prophylaxis Pharmacological prophylaxis: apixaban Lines/Catheters IV Catheter Type (from [facility]): Peripheral IV Assessment/Plan Hospital Course This is a 83-year-old male being admitted to the telemetry floor for #1 acute encephalopathy: Toxic metabolic, CVA, versus other. Patient had a CT of the brain that did show infarcts but these are likely old. He was not deemed a TPA candidate. At the current time we will monitor the patient on telemetry. Permissive hypertension for the first 24 hours. Neuro checks every 4 hours. An ammonia level was also drawn as recommended by the telemetry neurologist which was 32. Patient does not have a history of any liver disorder. In the meantime though we will get a CMP and a right upper quadrant ultrasound. Will check hepatitis panel. We will also give the patient lactulose for a day and see if we notice any improvement in his medical condition. Patient is unfortunately unable to get a MRI as he does have a pacemaker placed. Will consult neurology PT/OT/speech therapy evaluation. Continue Plavix, Eliquis, statin. Echo is pending. #2 elevated ammonia level: Possible underlying liver disease. We will check liver function test, right upper quadrant ultrasound hepatitis panel. Will treat with lactulose for the first 24 hours. #3 history of atrial fibrillation: EKG does show atrial fibrillation. We will continue patient's home medications including Eliquis. Continue Multaq, echo is pending.. Consult cardiology further recommendations we will hold car vedilol at the current time given need for permissive hypertension #4 history of ischemic cardiomyopathy: Previous echo from 2017 showed an ejection fraction of 35% echo is pending. Will consult cardiology. #5 history of ICD placement: Patient currently has an ICD and pacemaker placement. Consult cardiology #6 history of NSVT: Continue to monitor #7 dyslipidemia: Continue statin #8 hypertension: Permissive hypertension at the current time, w will hold home oral meds and we will treat for blood pressure greater than 220/120 with PRN Lopressor #9 DVT GI prophylaxis: Eliquis, no GI prophylaxis indicated Further treatment strategy will be implemented as per the clinical course. Result Diagram: 11/11/18 1725 11/11/18 1725 Results 24hrs Laboratory Tests Test 11/11/18 17:23 11/11/18 17:25 11/11/18 18:00 11/11/18 18:14 Bedside Glucose 98 White Blood Count 6.5 Red Blood Count 4.48 L Hemoglobin 14.1 Hematocrit 42.2 Mean Corpuscular 94.2 Volume Mean Corpuscular 31.5 Hemoglobin Mean Corpuscular 33.4 Hemoglobin Concen t Red Cell 13.5 Distribution Width Platelet Count 168 Mean Platelet 10.5 H Volume Immature 0.300 Granulocytes % Neutrophils % 52.3 Lymphocytes % 32.7 Monocytes % 12.4 H Eosinophils % 1.2 Basophils % 1.1 Nucleated Red 0.0 Blood Cells % Immature 0.020 Granulocytes # Neutrophils # 3.4 Lymphocytes # 2.1 Monocytes # 0.8 Eosinophils # 0.1 Basophils # 0.1 Nucleated Red 0.0 Blood Cells # Prothrombin Time 13.7 # Prothrombin Time 1.1 Ratio INR International 1.04 Normalized Ratio Sodium Level 143 Potassium Level 4.0 Chloride Level 107 Carbon Dioxide 23 Level Anion Gap 13 Blood Urea 26 H Nitrogen Creatinine 1.15 Est Glomerular Filtrat Rate mL/min Glucose Level 104 Hemoglobin A1c 5.2 Calcium Level 9.5 Creatine Kinase 171 Creatine Kinase 1.0 Index Creatinine Kinase 1.63 MB (Mass) Troponin I < 0.012 Triglycerides 133 Level Cholesterol Level 159 LDL Cholesterol, 96 Calculated HDL Cholesterol 36 Cholesterol/HDL 4.4 Ratio Thyroid 1.000 Stimulating Hormone (TSH) Free Thyroxine 1.54 Ethyl Alcohol < 10.0 H Level Urine Color YELLOW Urine Clarity CLEAR Urine pH 7.[address] Urine Ketones NEGATIVE Urine Nitrite NEGATIVE Urine Bilirubin NEGATIVE Urine NEGATIVE Urobilinogen Urine Leukocyte NEGATIVE Esterase Urine Hemoglobin NEGATIVE Urine Glucose NEGATIVE Urine Total NEGATIVE Protein Urine Opiates Negative Screen Urine Negative Barbiturates Urine Negative Amphetamines Screen Urine Negative Benzodiazepines Screen Urine Cocaine Negative Screen Urine Negative Cannabinoids Blood Gas Blood arterial Specimen Source Arterial Blood 11/11/2018 6:25:0 Date Drawn 6 PM Arterial Blood pH 7.419 (Temp corrected) Arterial Blood 36.5 pCO2 (Temp correct) Arterial Blood 69.7 L pO2 (Temp corrected) Arterial Blood 23.1 HCO3 Arterial Blood -0.9 Base Excess Arterial Blood 93.6 L Oxygen Saturation Taco Test ACCEPTAB Arterial Blood Right Radial Gas Puncture Site Arterial 0.7 Blood Carboxyhemo globin Arterial Blood 0.2 Methemoglobin Blood Gas A-a O2 36.3 H Differential Oxyhemoglobin 92.8 L Percent Blood Gas 37.0 Temperature Blood Gas ROOM AIR Modality FiO2 21.0 Blood Gas M.D. Notified Whom Blood Gas 11/11/2018 6:34:2 Notified Time 9 PM Test 11/11/18 19:12 Ammonia 32 H HPI/ROS Admit Date/Time Admit Date/Time Hx of Present Illness Chief complaint: Altered mental status This is an 83-year-old male with a past medical history of hypertension, hyperlipidemia, coronary artery disease, CHF, atrial fibrillation on Plavix and Eliquis, previous episodes of near syncope, who is now presenting with altered mentation and question of right-sided numbness beginning at 4 PM today, approximately 1 to 1-1/2 hours prior to arrival to the emergency department. The patient was reportedly normal this morning and this afternoon. He walked to the restroom, but he was in there for a long time. When the family went to assess him, the patient was standing there against the wall and staring and s eemed confused. The patient was slow to respond to questions and was having difficulty walking. At that time, an ambulance was called. When the patient arrived emergency department he is alert and is alert oriented to person only. Patient had a CT of the head performed. Which did show signs of infarct however this was thought to be old after seen by the telemetry neurologist. Patient also was not given aspirin as the patient was noted to have a severe allergy. The telemetry neurologist did not see any focality on examination and given the presentation he did not team that the patient was a candidate for TPA. Upon my examination the patient at the bedside he did appear slightly confused, however he was alert and oriented x3. He did have a son with him at the bedside who did state that he does appear slow with his speech. The son does not report any recent changes in the patient's medications. Allergies: Aspirin, ibuprofen Medications: Alfuzosin 10 mg p.o. daily Eliquis 5 mg p.o. twice daily Vitamin C thousand milligrams p.o. daily Carvedilol 25 mg p.o. twice daily Plavix 75 mg p.o. daily Multaq 400 mg p.o. twice daily Flonase 50 mg 1 spray in each nostril twice daily Lasix 40 mg p.o. daily Hydrocortisone topical cream 1 application twice daily daily losartan 25 mg p.o. twice daily and methimazole 5 mg p.o. daily Nitroglycerin sublingual Spinal lactone 25 mg p.o. daily Albuterol as needed Symbicort 2 puffs twice daily Crestor 10 mg p.o. nightly ROS Const: Negative for fever, chills, weight gain or weight loss, fatigue, or diap horesis Eyes : No pain discharge or redness or change in visual acuity ENT: No pain, sore throat, congestion, congestion, dysphagia or discharge Respiratory: No shortness of breath, cough, sputum, wheezing, or pleuritic pain Cardiovascular: No chest pain, palpitation, PND, or edema GI : no change in appetite, abdominal pain, nausea, vomiting, diarrhea, constipation, or change in the color his stool Genitourinary: No dysuria, hematuria, flank pain , discharge or CVA tenderness Musculoskeletal: No joint pain, back pain, neck pain, restricted range of motion in neck or joints Skin: No rash, bruising or hives Neuro: No headache, dizziness, syncope, seizure, focal weakness Endocrine: No polyuria, polydipsia, temperature intolerance Psych: No hallucination, depression, anxiety or suicidal ideation PMH/Family/Social Past Medical History 1. Hypertension. 2. Dyslipidemia. 3. History of ischemic cardiomyopathy. 4. History of ICD placement at [facility]. 5. History of VT in the past. 6. History of atrial fibrillation. Medications Current Medications Ondansetron HCl (Zofran Inj) 4 mg ER BRIDGE PRN IV NAUSEA/VOMITING; Start 11/11/18 at 19:30; Stop 11/12/18 at 19:29 Acetaminophen (Tylenol Tab) 650 mg ER BRIDGE PRN PO .MILD PAIN 1-3 OR TEMP; Start 11/11/18 at 19:30; Stop 11/12/18 at 19:29 Dextrose/Sodium Chloride 1,000 ml @ 70 mls/hr [id number] IV Last administered on 11/11/18at 21:06; Admin Dose 70 MLS/HR; Start 11/11/18 at 20:31; Stop 11/12/18 at 20:30 IV Flush (NS 3 ml) 3 ml PER PROTOCOL IV ; Start 11/11/18 at 21:00 Acetaminophen (Tylenol Supp) 650 mg Q6H PRN AL .PAIN 1-3 OR TEMP; Start 11/11/18 at 21:00 Coded Allergies: aspirin (Verified Allergy, Severe, BREATHING/SWELLING, 11/11/18) ibuprofen (Unverified Allergy, Unknown, 11/11/18) Past Surgical History Pacemaker placement, CABG Family History Significant Family History: no pertinent family hx Social History Alcohol Use: none Smoking Status: Never smoker Drug Use: none Exam/Review of Systems Vital Signs Vitals Vital Signs Date Temp Pulse Resp B/P (MAP) Pulse Ox O2 O2 Flow FiO2 Time Delivery Rate 11/11/18 90 27 142/88 98 Room Air 20:23 (106) 11/11/18 97.6 18:25 11/11/18 2 17:53 Exam Exam General: Patient is currently lying in bed, he is easily arousable and he does communicate, he is slightly slow to response HEENT: Atraumatic, normocephalic. The pupils are equal, round and reactive. Extraocular motor are intact Neck: Supple with full range of motion. No rigidity or meningismus Chest: Nontender Lungs: Clear to auscultation bilaterally no crackles rales or wheezing Heart: Irregularly irregular Abdomen: Soft , nontender, nondistended , bowel sounds are present. No guarding no rebound tenderness , No masses or organomegaly. No costovertebral temporal angle mass Extremities: Normal to inspection, no edema no cyanosis Neurologic: Alert and oriented x4, slow to response but he does give the correct answers, does appear slightly confused. Cranial nerves II through XII intact, slight decrease in dining manager strength of the right upper extremity compared to the left. Strength 5 out of 5 in the left upper and lower extremities and right lower extremity. Additional Comments Rate/Rhythm: Regular rate. Irregular regular rhythm at 101 bpm. Intervals: Normal [place]: Normal Impression: Atrial fibrillation. T wave inversions in the lateral leads indicating age-indeterminate ischemia.. No evidence of acute ischemia or arrhythmia PROCEDURE: CT BRAIN WITHOUT CONTRAST CLINICAL INDICATION: Syncope. TECHNIQUE: Transaxial CT examination of the head was performed without intravenous administration of contrast on a [employer] helical CT scanner. In addition to the brain and bone windows of transaxial images, multiple sagittal and coronal reformatted images were generated for the interpretation. DICOM images are available. Radiation dose: CTDIvol = 36 mGy; total DLP = 634 mGy-cm. One or more of the following dose reduction techniques were used: - Automated exposure control. - Adjustment of the mA and/or kV according to patient size. - Use of iterative reconstruction technique. COMPARISON: None. FINDINGS: Evaluation of the supratentorial compartment demonstrates two lacunar infarctions of undetermined age measuring up to approximately 5-6 mm at the anterior basal ganglia (series 2, images 12, 14). There is no hemorrhage, mass e ffect, midline shift, or abnormal extra-axial fluid collection. Mild to moderate enlargement of the ventricles and cortical sulci in a pattern of atrophy is normal for the age. Mild to moderate periventricular and subcortical white matter hypoattenuation density is present, which is most likely due to age related microvascular change. Evaluation of the posterior fossa reveals no appreciable infarction, hemorrhage, or mass effect. Mild atrophic change is compatible with the age of patient. The cerebellar tonsils are in normal position relative to the foramen magnum. The skull is intact without abnormal bone density or destructive lesion. Bilateral mastoid air cells and the visualized paranasal sinuses are normally aerated. Bilateral cataract surgeries are appreciated. IMPRESSION: 1. Two lacunar infarctions of undetermined age measuring up to approximately 5- 6 mm at the anterior basal ganglia. 2. No hemorrhage, hydrocephalus, or midline shift. 3. Mild to moderate age related microvascular change. 4. A call report of the findings was made to Michel Medina MD on 11/11/2018 at 5:40 PM. RPTAT: EE Physician [place] Date Time Electronically viewed and signed by Silver Borrego Physician on 11/11/2018 17:48 PH/ CC: MICHEL MEDINA MD [id number] PROCEDURE: XR Chest, 1 View CLINICAL INDICATION: Syncope. TECHNIQUE: Frontal view of the chest. COMPARISON: 06/29/2016 FINDINGS: LUNGS: Mild atelectasis at the lung bases. No consolidative pulmonary infiltrates noted. PLEURAL SPACE: Unremarkable. No pneumothorax. HEART: Cardiomegaly is present. MEDIASTINUM: Unremarkable. BONES/JOINTS: Status post median sternotomy. Degenerative spine changes are noted. VASCULATURE: The thoracic aorta is tortuous and atherosclerotic. TUBES, LINES AND DEVICES: There is an AICD / pacemaker device demonstrated. IMPRESSION: 1. There is an AICD / pacemaker device demonstrated. 2. Cardiomegaly is present. 3. Mild atelectasis at the lung bases. No consolidative pulmonary infiltrates noted. RPTAT: [facility] Jenaro Lemos, Physician Distribution Warehouse Manager Date Time Electronically viewed and signed by Jenaro Lemos Physician Distribution Warehouse Manager on 11/11/2018 19:25 RmC/ CC: MICHEL MEDINA MD [id number] LISBET SIMMONS Nov 11, 2018 21:59
--- NOTE | 2018-11-11 22:06 | ERD ---
ER Documentation Chief Complaint Chief Complaint ALOC AND RIGHT ARM NUMBNESS X 1500 TODAY HPI This is an 83-year-old male with a past medical history of hypertension, hyperlipidemia, coronary artery disease, CHF, atrial fibrillation on Plavix and Eliquis, previous episodes of near syncope, who is now presenting with altered mentation and question of right-sided numbness beginning at 4 PM today, approximately 1 to 1-1/2 hours prior to arrival to the emergency department. The patient was reportedly normal this morning and this afternoon. He walked to the restroom, but he was in there for a long time. When the family went to assess him, the patient was sitting there and staring and seemed confused. The patient was slow to respond to questions and was having difficulty walking. At that time, an ambulance was called. The patient is alert and oriented to person only. He seems to have possible right-sided deficits. History and physical is limited secondary to altered mentation. ROS Review of systems limited secondary to altered mentation. Medications Home Meds Reported Medications Alfuzosin Hcl* (Alfuzosin Hcl*) 10 Mg Tab.er.24h, 10 MG PO DAILY, #30 TAB.SA 11/11/18 Budesonide-Formoterol Fumarate* (Symbicort*) 80-4.5 Mcg Hfa.aer.ad, 2 PUFF INHALATION BID, BOTTLE 11/11/18 Albuterol Sulfate (Proair Respiclick) 90 Mcg Aer.pow.ba, 2 PUFFS INHALATION Q6 PRN for SHORTNESS OF BREATH, #1 BOTTLE 11/11/18 Carvedilol* (Carvedilol*) 25 Mg Tablet, 25 MG PO BID, #60 TAB 11/11/18 Clopidogrel Bisulfate* (Clopidogrel Bisulfate*) 75 Mg Tablet, 75 MG PO DAILY, #30 TAB 11/11/18 Dronedarone Hydrochloride* (Multaq*) 400 Mg Tablet, 400 MG PO BID, TAB 11/11/18 Apixaban* (Eliquis*) 5 Mg Tablet, 5 MG PO BID, TAB 11/11/18 Fluticasone Propionate* (Fluticasone Propionate* Nasal) 50 Mcg/[place] - 16 Gm [place].susp, 1 SPRAY NASAL DAILY, #1 BOTTLE TO EACH NOSTRIL 11/11/18 Furosemide* (Furosemide*) 20 Mg Tablet, 40 MG PO DAILY, #60 TAB 11/11/18 Hydrocortisone* Topical (Hydrocortisone* Topical) 2.5%-28.3 Gm Cream..g., 1 APPLIC TOP BID, TUB 11/11/18 Losartan Potassium* (Losartan Potassium*) 25 Mg Tablet, 25 MG PO BID, TAB 11/11/18 Ascorbic Acid (Vitamin C) 500 Mg Tab, 1000 MG PO DAILY, TAB 11/11/18 Spironolactone* (Aldactone*) 25 Mg Tablet, 12.5 MG PO DAILY, #30 TAB 11/11/18 Rosuvastatin Calcium* (Crestor*) 10 Mg Tablet, 10 MG PO QHS, #30 TAB 11/11/18 Nitroglycerin* (Nitroglycerin* SL) 0.4 Mg Tab.subl, 0.4 MG SL Q5MIN PRN for CHEST PAIN, BOTTLE 11/11/18 Methimazole* (Methimazole*) 5 Mg Tablet, 5 MG PO DAILY, TAB 11/11/18 Discontinued Reported Medications Alfuzosin Hcl* (Alfuzosin Hcl*) 10 Mg Tab.er.24h, 10 MG PO DAILY, #30 TAB.SA 08/28/17 Sertraline Hcl* (Zoloft*) 25 Mg Tablet, 25 MG PO DAILY, #30 TAB 08/28/17 Tiotropium [place]* (Spiriva*) 18 Mcg Cap.w.dev, 1 CAP INHALATION DAILY, #30 CAP 08/28/17 Budesonide-Formoterol Fumarate* (Symbicort*) 80-4.5 Mcg Hfa.aer.ad, 2 PUFF INHALATION BID, BOTTLE 08/28/17 Methimazole* (Methimazole*) 10 Mg Tablet, 10 MG PO DAILY, TAB 08/28/17 Finasteride* (Finasteride*) 5 Mg Tablet, 5 MG PO DAILY, TAB 08/28/17 Potassium Chloride* (K-Dur*) 20 Meq Tab.prt.sr, 20 MEQ PO DAILY, TAB.SA 08/28/17 Dronedarone Hydrochloride* (Multaq*) 400 Mg Tablet, 400 MG PO BID, TAB 08/28/17 Furosemide* (Furosemide*) 40 Mg Tablet, 40 MG PO DAILY, TAB 08/28/17 Carvedilol* (Carvedilol*) 25 Mg Tablet, 25 MG PO BID, #60 TAB 08/28/17 Valsartan* (Diovan*) 80 Mg Tablet, 80 MG PO DAILY, TAB 08/28/17 Rosuvastatin Calcium* (Crestor*) 10 Mg Tablet, 10 MG PO QHS, #30 TAB 08/28/17 Isosorbide Mononitrate* (Isosorbide Mononitrate*) 60 Mg Tab.er.24h, 60 MG PO DAILY, TAB 08/28/17 Apixaban* (Eliquis*) 5 Mg Tablet, 5 MG PO BID, TAB 08/28/17 Allergies Allergies: Coded Allergies: aspirin (Verified Allergy, Severe, BREATHING/SWELLING, 11/11/18) ibuprofen (Unverified Allergy, Unknown, 11/11/18) PMhx/Soc History of Surgery: Yes (2015- CABG, AID placement) Anesthesia Reaction: No Hx Neurological Disorder: No Hx Respiratory Disorders: No Hx Cardiac Disorders: Yes (Pretension, hyperlipidemia, coronary artery disease, atrial fibrillation) Hx Psychiatric Problems: No Hx Miscellaneous Medical Probl: Yes (HTN, HLD, CHF) Hx Alcohol Use: Yes (once a month) Hx Substance Use: No Hx Tobacco Use: No Smoking Status: Never smoker FmHx Family History: No diabetes Physical Exam Vitals Vital Signs Date Temp Pulse Resp B/P (MAP) Pulse Ox O2 O2 Flow FiO2 Time Delivery Rate 11/11/18 90 27 142/88 98 Room Air 20:23 (106) 11/11/18 102 20 151/102 96 Room Air 19:30 (118) 11/11/18 97.6 95 16 151/109 96 Room Air 18:25 (123) 11/11/18 98.8 97 30 164/109 95 Room Air 17:53 (127) 11/11/18 Nasal 2 17:53 Cannula 11/11/18 98.8 109 30 164/109 95 17:50 (127) Physical Exam Const: No apparent distress, well-developed, well-nourished Head: Normocephalic, Atraumatic Eyes: Normal Conjunctiva. Extraocular movements grossly intact. Pupils equal, round and reactive to light ENT: Normal External Ears, Nose. Dry mucous membranes. Neck: Full range of motion. No meningismus. Resp: Clear to auscultation bilaterally, No wheezes, rales or rhonchi Cardio: Regular rate. Irregularly irregular rhythm. No murmurs, rubs or gallops Abd: Soft, non tender, non distended. Normal bowel sounds Skin: No petechiae or rashes Back: No midline tenderness. No CVA tenderness Ext: No cyanosis, or edema Neur: Awake and alert, oriented 1. Questionable right nasolabial fold decrease. Questionable right pronator drift. Patient has difficulty following commands, so the physical exam is limited. Result Diagram: 11/11/18 1725 11/11/18 1725 Results 24 hrs Laboratory Tests Test 11/11/18 17:23 11/11/18 17:25 11/11/18 18:00 11/11/18 18:14 Bedside Glucose 98 mg/dL White Blood 6.5 10^3/ul Count Red Blood Count 4.48 10^6/ul Hemoglobin 14.1 g/dl Hematocrit 42.2 % Mean 94.2 fl Corpuscular Volume Mean 31.5 pg Corpuscular Hemoglobin Mean 33.4 g/dl Corpuscular Hemoglobin Conc ent Red Cell 13.5 % Distribution Width Platelet Count 168 10^3/UL Mean Platelet 10.5 fl Volume Immature 0.300 % Granulocytes % Neutrophils % 52.3 % Lymphocytes % 32.7 % Monocytes % 12.4 % Eosinophils % 1.2 % Basophils % 1.1 % Nucleated Red 0.0 /100WBC Blood Cells % Immature 0.020 10^3/ul Granulocytes # Neutrophils # 3.4 10^3/ul Lymphocytes # 2.1 10^3/ul Monocytes # 0.8 10^3/ul Eosinophils # 0.1 10^3/ul Basophils # 0.1 10^3/ul Nucleated Red 0.0 10^3/ul Blood Cells # Prothrombin 13.7 Sec Time Prothrombin 1.1 Time Ratio INR 1.04 International Normalized Rati o Sodium Level 143 mmol/L Potassium Level 4.0 mmol/L Chloride Level 107 mmol/L Carbon Dioxide 23 mmol/L Level Anion Gap 13 Blood Urea 26 mg/dl Nitrogen Creatinine 1.15 mg/dl Est Glomerular mL/min Filtrat Rate mL/min Glucose Level 104 mg/dl Hemoglobin A1c 5.2 % Calcium Level 9.5 mg/dl Creatine Kinase 171 IU/L Creatine Kinase 1.0 Index Creatinine 1.63 ng/ml Kinase MB (Mass) Troponin I < 0.012 ng/ml Triglycerides 133 mg/dl Level Cholesterol 159 mg/dl Level LDL 96 mg/dl Cholesterol, Calculated HDL Cholesterol 36 mg/dl Cholesterol/HDL 4.4 RATIO Ratio Thyroid 1.000 MIU/L Stimulating Hormone (TSH) Free Thyroxine 1.54 ng/dl Ethyl Alcohol < 10.0 mg/dl Level Urine Color YELLOW Urine Clarity CLEAR Urine pH 7.0 Urine Specific 1.008 Bryce Urine Ketones NEGATIVE mg/dL Urine Nitrite NEGATIVE mg/dL Urine Bilirubin NEGATIVE mg/dL Urine NEGATIVE mg/dL Urobilinogen Urine Leukocyte NEGATIVE [place]/ul Esterase Urine NEGATIVE mg/dL Hemoglobin Urine Glucose NEGATIVE mg/dL Urine Total NEGATIVE mg/dl Protein Urine Opiates Negative Screen Urine Negative Barbiturates Urine Negative Amphetamines Screen Urine Negative Benzodiazepines Screen Urine Cocaine Negative Screen Urine Negative Cannabinoids Blood Gas Blood arterial Specimen Source Arterial Blood 11/11/2018 6:25: Date Drawn 06 PM Arterial Blood 7.419 pH (Temp corrected ) Arterial Blood 36.5 mmhg pCO2 (Temp correct) Arterial Blood 69.7 mmHG pO2 (Temp corrected ) Arterial Blood 23.1 mmol/L HCO3 Arterial Blood -0.9 mmol/L Base Excess Arterial Blood 93.6 mmHG Oxygen Saturati on Taco Test ACCEPTAB Arterial Blood Right Radial Gas Puncture Site Arterial 0.7 % Blood Carboxyhe moglobin Arterial Blood 0.2 % Methemoglobin Blood Gas A-a 36.3 mmHg O2 Differential Oxyhemoglobin 92.8 % Percent Blood Gas 37.0 C Temperature Blood Gas ROOM AIR Modality FiO2 21.0 % Blood Gas M.D. Notified Whom Blood Gas 11/11/2018 6:34: Notified Time 29 PM Test 11/11/18 19:12 Ammonia 32 umol/l Current Medications Medications Dose Sig/Braulio Start Time Status Last (Trade) Ordered Route PRN Stop Time Admin Dose Reason Admin Sodium 500 ml @ Q1H STAT 11/11/18 DC 11/11/18 Chloride 500 mls/hr IV 17:15 18:03 11/11/18 18:14 Ondansetron 4 mg ER BRIDGE 11/11/18 HCl (Zofran PRN IV 19:30 Inj) NAUSEA/VOMITI 11/12/18 19:29 NG 650 mg ER BRIDGE 11/11/18 Acetaminophen PRN PO 19:30 (Tylenol .MILD PAIN 11/12/18 19:29 Tab) 1-3 OR TEMP 1,000 ml @ [id number] IV 11/11/18 11/11/18 Dextrose/Sodi 70 mls/hr 20:31 21:06 um Chloride 11/12/18 20:30 IV Flush 3 ml PER 11/11/18 (NS 3 ml) PROTOCOL IV 21:00 650 mg Q6H PRN 11/11/18 Acetaminophen RI .PAIN 1-3 21:00 (Tylenol OR TEMP Supp) IV Flush 10 ml STK-MED 11/11/18 DC (NS 10 ml) ONCE .ROUTE 21:10 11/11/18 21:11 Sodium 100 ml @ ud STK-MED 11/11/18 DC Chloride ONCE .ROUTE 21:10 11/11/18 21:11 Iohexol 100 ml @ ud STK-MED 11/11/18 DC ONCE .ROUTE 21:11/11/18 21:11 Procedures/MDM MDM The patient's presentation warrants further investigation. Previous medical records, if available, were reviewed. LABS The patient's laboratory testing was obtained and reviewed. No emergent treat ment was required unless described below. CBC: No E/o systemic infection or severe anemia or thrombocytopenia Chemistry: No E/o severe acidosis or alkalosis or renal failure or diabetic ketoacidosis. Elevated BUN, concerning for possible intravascular depletion from chronic diuresis and dehydration. PT/INR: No E/o significant coagulopathy Troponin: No E/o acute ischemia Urine: No E/o acute infection or hematuria Tox: No E/o alcohol abuse. No E/o illicit drug use. NH4: Mild hyperammonemia, unlikely the etiology of symptoms. ABG: Hypoxia. TFTs: No thyroid emergency EKG EKG read by me: Rate/Rhythm: Regular rate. Irregular regular rhythm at 101 bpm. Intervals: Normal [place]: Normal Impression: Atrial fibrillation. T wave inversions in the lateral leads indicating age-indeterminate ischemia.. No evidence of acute ischemia or arrhythmia IMAGING Imaging and Radiology interpretation reviewed. CXR FINDINGS: LUNGS: Mild atelectasis at the lung bases. No consolidative pulmonary in filtrates noted. PLEURAL SPACE: Unremarkable. No pneumothorax. HEART: Cardiomegaly is present. MEDIASTINUM: Unremarkable. BONES/JOINTS: Status post median sternotomy. Degenerative spine changes are noted. VASCULATURE: The thoracic aorta is tortuous and atherosclerotic. TUBES, LINES AND DEVICES: There is an AICD / pacemaker device demonstrated. IMPRESSION: 1. There is an AICD / pacemaker device demonstrated. 2. Cardiomegaly is present. 3. Mild atelectasis at the lung bases. No consolidative pulmonary infiltrates noted. Electronically viewed and signed by Jenaro Lemos, Physician Piano Mover on 11/11/2018 19:25 CT Head FINDINGS: Evaluation of the supratentorial compartment demonstrates two lacunar infarctions of undetermined age measuring up to approximately 5-6 mm at the anterior basal ganglia (series 2, images 12, 14). There is no hemorrhage, mass effect, midline shift, or abnormal extra-axial fluid collection. Mild to moderate enlargement of the ventricles and cortical sulci in a pattern of atrophy is normal for the age. Mild to moderate periventricular and subcortical white matter hypoattenuation density is present, which is most likely due to age related microvascular change. Evaluation of the posterior fossa reveals no appreciable infarction, hemorrhage, or mass effect. Mild atrophic change is compatible with the age of patient. The cerebellar tonsils are in normal position relative to the foramen magnum. The skull is intact without abnormal bone density or destructive lesion. Bilateral mastoid air cells and the visualized paranasal sinuses are normally aerated. Bilateral cataract surgeries are appreciated. IMPRESSION: 1. Two lacunar infarctions of undetermined age measuring up to approximately 5- 6 mm at the anterior basal ganglia. 2. No hemorrhage, hydrocephalus, or midline shift. 3. Mild to moderate age related microvascular change. 4. A call report of the findings was made to Michel Medina MD on 11/11/2018 at 5:40 PM. Electronically viewed and signed by Physician Cuauhtemoc on 11/11/2018 17:48 TREATMENT/DISPOSITION The patient presents for acute altered mental status and possible right-sided deficits, concerning for a stroke. A code stroke was called and the patient was evaluated immediately. The patient CT scan reveals to left basal ganglia infarcts of undetermined age. The tele-neurologist evaluated the patient and felt that the patient's symptoms were not definitive enough to warrant the risk of TPA. Additionally, he felt that the lacunar infarcts that were present were in fact old. There is no evidence of large vessel occlusion. The patient is not a thrombectomy candidate. The patient is allergic to aspirin with reported throat closing. This is not given to him either. He is already on Eliquis and Plavix in an outpatient setting. This may be continued in the hospital. I do feel the patient would benefit from further evaluation from a neurologic standpoint including an MRI of the head and MRA of the head and neck. Other etiologies of altered mental status were considered. The patient has no signs of emergent or symptomatic anemia. The patient does not have any emergent electrolyte or metabolic emergencies. The patient's ammonia is slightly elevated but unlikely to be the etiology of his symptoms today. I have decrease suspicion for a thyroid disorder. The patient is not toxic appearing. I have decreased suspicion for an infectious etiology of symptoms. The patient's EKG and troponin are reassuring. I have low suspicion for acute coronary syndrome. I do not see evidence of any emergent cardiac arrhythmia, which includes but is not limited to heart block, Brugada syndrome or WPW. The patient has no heart murmurs or rales. There is no evidence of cardiomegaly on exam or chest xray. I have low suspicion for hypertrophic cardiomyopathy. I do not see evidence of CHF. The patient does not endorse any chest or pleuritic pain. The history is negative for bleeding or clotting disorders. The patient has not been involved in any recent prolonged trips or surgeries or hospitalizations. The patient has no calf tenderness or swelling. The patient is very mildly hypoxic, which improved on oxygen via nasal cannula. This may be further assessed in the hospital. His symptoms are not consistent with a pulmonary embolism. ADMISSION At this time, I feel that the patient requires admission for further evaluation and management. The patient will be admitted to panel in accordance with the patient's insurance. The patient was accepted by Dr. Nathan at 7:22 PM. CRITICAL CARE NOTE Time: 34 minutes excluding all billable procedures. Treatments/Evaluations: The patient was at risk of hemodynamic compromise. Timing of critical care involved close serial monitoring, evaluation of the patient's medical record including previous records & current laboratory/imaging studies, potential interventions for prevention of hemodynamic/ cardiopulmonary/ neurologic compromise, maintaining tight fluid balance, and any discussions with the family and/or consultants regarding the patient's status and prognosis. Disclaimer: Inadvertent spelling and grammatical errors are likely due to EHR/dictation software use and do not reflect on the overall quality of patient care. Note that the electronic time recorded on this note does not necessarily reflect the actual time of the patient encounter. Departure Diagnosis: Primary Impression: Encephalopathy Additional Impressions: CVA (cerebral vascular accident) CVA mechanism: unspecified Qualified Codes: I63.9 - Cerebral infarction, unspecified Altered mental status Altered mental status type: unspecified Qualified Codes: R41.82 - Altered mental status, unspecified Hyperammonemia Hypoxia Condition: Serious MICHEL MEDINA MD Nov 11, 2018 22:03
[2018-11-11 23:00] VITALS: BP 187/105; PULSE 85; RESP 19
[2018-11-11 23:14] VITALS: Ht 160 cm; Wt 75.1 kg
[2018-11-12] VITALS: BP 163/93; PULSE 67; RESP 18
[2018-11-12 04:00] VITALS: BP 149/60; PULSE 56; RESP 18
[2018-11-12] MEDS ORDERED: METOPROLOL 5 MG INJ IV PRN (05:30)
[2018-11-12] MEDS: LACTULOSE 30ML CUP PO SCH ×3 (06:22→18:17)
[2018-11-12 07:33] VITALS: BP 136/96; PULSE 77; RESP 19
[2018-11-12] MEDS: METHIMAZOLE 5 MG TAB PO SCH (09:00)
[2018-11-12] MEDS ORDERED: APIXABAN 5 MG TABLET PO SCH (09:00)
[2018-11-12] MEDS: FLUTICASONE 0.05% 16 GM NAS SPRAY NASAL SCH (09:00)
[2018-11-12] MEDS ORDERED: CLOPIDOGREL 75 MG TAB PO SCH (09:00)
[2018-11-12] MEDS: ASCORBIC ACID 500 MG TAB PO SCH (09:30)
[2018-11-12] MEDS: DRONEDARONE HYDROCHLORIDE 400 MG TAB PO SCH ×2 (09:31→21:01)
[2018-11-12] MEDS: FLUTICASONE/VILANTEROL 100-25 INH SCH (09:33)
[2018-11-12] MEDS: DEXTROSE 5%-0.45% NACL 1,000 ML IV SCH (10:45)
[2018-11-12 11:25] VITALS: BP 140/90; PULSE 74; RESP 18
--- NOTE | 2018-11-12 12:17 | CONSI ---
Assessment/Plan Assessment/Plan Assessment/Plan (Recall) 83 M c/ afib and other cerebrovascular risk factors, who presents for evaluation of transient ams w/ ? R sided numbness x 1 hr... The clinical picture is most ominously concerning for stroke.. An acute encephalopathy is additionally considered...a Dx of exclusion.. Head CT is notable for age indeterminate lacunes.. 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 LDL 96 A1C nl UA neg P: Permissive HTN to 220/110 OK [address].. [address] Head in pm to eval for interval change Lipitor for secondary prevention for now, pending the above (already received eliquis/plavix this am..) Await echo read Add ESR, RPR [place] as necessary PT/OT/ST as necessary Other management per primary Will follow clinically Consultation Date/Type/Reason Admit Date/Time Type of Consult Neurology Reason for Consultation ams Requesting Provider: LISBET SIMMONS Date/Time of Note DATE: 11/12/18 TIME: 12:15 Hx of Present Illness This is an 83-year-old male with a past medical history of hypertension, hyperlipidemia, coronary artery disease, CHF, atrial fibrillation on Plavix and Eliquis, previous episodes of near syncope, who is now presenting with altered mentation and question of right-sided numbness beginning at 4 PM today, approximately 1 to 1-1/2 hours prior to arrival to the emergency department. The patient was reportedly normal this morning and this afternoon. He walked to the restroom, but he was in there for a long time. When the family went to assess him, the patient was standing there against the wall and staring and se emed confused. The patient was slow to respond to questions and was having difficulty walking. At that time, an ambulance was called. When the patient arrived emergency department he is alert and is alert oriented to person only. Patient had a CT of the head performed. Which did show signs of infarct however this was thought to be old after seen by the telemetry neurologist. Patient also was not given aspirin as the patient was noted to have a severe allergy. The telemetry neurologist did not see any focality on examination and given the presentation he did not team that the patient was a candidate for TPA. Upon my examination the patient at the bedside he did appear slightly confused, however he was alert and oriented x3. He did have a son with him at the bedside who did state that he does appear slow with his speech. The son does not report any recent changes in the patient's medications. o/w neg Objective Exam Vitals Vital Signs Date Temp Pulse Resp B/P (MAP) Pulse Ox O2 O2 Flow FiO2 Time Delivery Rate 11/12/18 98.1 74 18 140/90 95 Room Air 11:25 (107) 11/11/18 2 17:53 Intake and Output 11/11/18 11/11/18 11/12/18 1515:00 23:00 07:00 IntakeIntake Total 240 ml OutputOutput Total 700 ml 1350 ml BalanceBalance -700 ml -1110 ml Exam PE: Gen Appearance: No Apparent Distress HEENT: Normocephalic Cardiovascular: Regular rate Abdomen: Soft Extremities: Dry NE: The patient was alert and oriented to person, hospital, month, and year.. Langu age was somewhat dysfluent.. Fund of knowledge was somewhat limited. Pupils were equal and reactive to light. There was no afferent pupillary defect. Visual pedroza were normal. Funduscopic examination was limited. Extra-ocular movements were full. Ptosis was absent. There was no nystagmus. Facial sensation was normal. Face was symmetric with normal strength. Hearing was intact. Palate movements were normal. Neck strength was normal. There was normal tongue bulk and speed of movement. Tone was normal. Muscle bulk was normal. I did not see fasciculations. Arms and legs were symmetric. Vibration sensation was normal. Temperature and pinprick sensation was normal. Rapid alternating movements were normal. There was no dysmetria. There was no intention tremor. Gait was deferred due to bedrest. Arm and leg reflexes were symmetric. Kan's sign was absent. Plantar responses were flexor. Results Result Diagram: 11/12/18 0439 11/12/18 0439 Results 24hrs Laboratory Tests Test 11/11/18 17:23 11/11/18 17:25 11/11/18 18:00 11/11/18 18:14 Bedside Glucose 98 White Blood Count 6.5 Red Blood Count 4.48 L Hemoglobin 14.1 Hematocrit 42.2 Mean Corpuscular 94.2 Volume Mean Corpuscular 31.5 Hemoglobin Mean Corpuscular 33.4 Hemoglobin Concen t Red Cell 13.5 Distribution Width Platelet Count 168 Mean Platelet 10.5 H Volume Immature 0.300 Granulocytes % Neutrophils % 52.3 Lymphocytes % 32.7 Monocytes % 12.4 H Eosinophils % 1.2 Basophils % 1.1 Nucleated Red 0.0 Blood Cells % Immature 0.020 Granulocytes # Neutrophils # 3.4 Lymphocytes # 2.1 Monocytes # 0.8 Eosinophils # 0.1 Basophils # 0.1 Nucleated Red 0.0 Blood Cells # Prothrombin Time 13.7 # Prothrombin Time 1.1 Ratio INR International 1.04 Normalized Ratio Sodium Level 143 Potassium Level 4.0 Chloride Level 107 Carbon Dioxide 23 Level Anion Gap 13 Blood Urea 26 H Nitrogen Creatinine 1.15 Est Glomerular Filtrat Rate mL/min Glucose Level 104 Hemoglobin A1c 5.2 Calcium Level 9.5 Creatine Kinase 171 Creatine Kinase 1.0 Index Creatinine Kinase 1.63 MB (Mass) Troponin I < 0.012 Triglycerides 133 Level Cholesterol Level 159 LDL Cholesterol, 96 Calculated HDL Cholesterol 36 Cholesterol/HDL 4.4 Ratio Thyroid 1.000 Stimulating Hormone (TSH) Free Thyroxine 1.54 Ethyl Alcohol < 10.0 H Level Urine Color YELLOW Urine Clarity CLEAR Urine pH 7.0 Urine Specific 1.008 [place] Urine Ketones NEGATIVE Urine Nitrite NEGATIVE Urine Bilirubin NEGATIVE Urine NEGATIVE Urobilinogen Urine Leukocyte NEGATIVE Esterase Urine Hemoglobin NEGATIVE Urine Glucose NEGATIVE Urine Total NEGATIVE Protein Urine Opiates Negative Screen Urine Negative Barbiturates Urine Negative Amphetamines Screen Urine Negative Benzodiazepines Screen Urine Cocaine Negative Screen Urine Negative Cannabinoids Blood Gas Blood arterial Specimen Source Arterial Blood 11/11/2018 6:25:0 Date Drawn 6 PM Arterial Blood pH 7.419 (Temp corrected) Arterial Blood 36.5 pCO2 (Temp correct) Arterial Blood 69.7 L pO2 (Temp corrected) Arterial Blood 23.1 HCO3 Arterial Blood -0.9 Base Excess Arterial Blood 93.6 L Oxygen Saturation Taco Test ACCEPTAB Arterial Blood Right Radial Gas Puncture Site Arterial 0.7 Blood Carboxyhemo globin Arterial Blood 0.2 Methemoglobin Blood Gas A-a O2 36.3 H Differential Oxyhemoglobin 92.8 L Percent Blood Gas 37.0 Temperature Blood Gas ROOM AIR Modality FiO2 21.0 Blood Gas M.D. Notified Whom Blood Gas 11/11/2018 6:34:2 Notified Time 9 PM Test 11/11/18 19:12 11/11/18 22:00 11/12/18 04:39 11/12/18 05:45 Ammonia 32 H Creatine Kinase 168 211 H Creatine Kinase 0.7 0.7 Index Creatinine Kinase 1.17 1.41 MB (Mass) Troponin I 0.013 0.031 White Blood Count 7.7 Red Blood Count 4.44 L Hemoglobin 13.6 L Hematocrit 41.9 L Mean Corpuscular 94.4 Volume Mean Corpuscular 30.6 Hemoglobin Mean Corpuscular 32.5 Hemoglobin Concen t Red Cell 13.5 Distribution Width Platelet Count 153 Mean Platelet 11.2 H Volume Immature 0.300 Granulocytes % Neutrophils % 65.9 Lymphocytes % 20.8 Monocytes % 11.2 H Eosinophils % 0.8 Basophils % 1.0 Nucleated Red 0.0 Blood Cells % Immature 0.020 Granulocytes # Neutrophils # 5.1 Lymphocytes # 1.6 Monocytes # 0.9 Eosinophils # 0.1 Basophils # 0.1 Nucleated Red 0.0 Blood Cells # Sodium Level 142 Potassium Level 3.5 Chloride Level 108 Carbon Dioxide 23 Level Anion Gap 11 Blood Urea 23 H Nitrogen Creatinine 0.91 Est Glomerular Filtrat Rate mL/min Glucose Level 123 Calcium Level 8.5 Magnesium Level 1.9 Total Bilirubin 0.8 Direct Bilirubin 0.00 Indirect 0.8 Bilirubin Aspartate Amino 27 Transf (AST/SGOT) Alanine 28 Aminotransferase (ALT/SGPT) Alkaline 60 Phosphatase Total Protein 7.3 Albumin 3.9 Globulin 3.40 H Albumin/Globulin 1.14 Ratio Hepatitis A POSITIVE H Antibody Total Hepatitis B NEGATIVE Surface Antigen Hepatitis B NEGATIVE Surface Antibody Hepatitis B Core REACTIVE H Total Antibody Hepatitis C NEGATIVE Antibody Past Medical History reviewed Home Meds Reported Medications Alfuzosin Hcl* (Alfuzosin Hcl*) 10 Mg Tab.er.24h, 10 MG PO DAILY, #30 TAB.SA 11/11/18 Budesonide-Formoterol Fumarate* (Symbicort*) 80-4.5 Mcg Hfa.aer.ad, 2 PUFF INHALATION BID, BOTTLE 11/11/18 Albuterol Sulfate (Proair Respiclick) 90 Mcg Aer.pow.ba, 2 PUFFS INHALATION Q6 PRN for SHORTNESS OF BREATH, #1 BOTTLE 11/11/18 Carvedilol* (Carvedilol*) 25 Mg Tablet, 25 MG PO BID, #60 TAB 11/11/18 Clopidogrel Bisulfate* (Clopidogrel Bisulfate*) 75 Mg Tablet, 75 MG PO DAILY, #30 TAB 11/11/18 Dronedarone Hydrochloride* (Multaq*) 400 Mg Tablet, 400 MG PO BID, TAB 11/11/18 Apixaban* (Eliquis*) 5 Mg Tablet, 5 MG PO BID, TAB 11/11/18 Fluticasone Propionate* (Fluticasone Propionate* Nasal) 50 Mcg/[place] - 16 Gm [place].susp, 1 SPRAY NASAL DAILY, #1 BOTTLE TO EACH NOSTRIL 11/11/18 Furosemide* (Furosemide*) 20 Mg Tablet, 40 MG PO DAILY, #60 TAB 11/11/18 Hydrocortisone* Topical (Hydrocortisone* Topical) 2.5%-28.3 Gm Cream..g., 1 APPLIC TOP BID, TUB 11/11/18 Losartan Potassium* (Losartan Potassium*) 25 Mg Tablet, 25 MG PO BID, TAB 11/11/18 Ascorbic Acid (Vitamin C) 500 Mg Tab, 1000 MG PO DAILY, TAB 11/11/18 Spironolactone* (Aldactone*) 25 Mg Tablet, 12.5 MG PO DAILY, #30 TAB 11/11/18 Rosuvastatin Calcium* (Crestor*) 10 Mg Tablet, 10 MG PO QHS, #30 TAB 11/11/18 Nitroglycerin* (Nitroglycerin* SL) 0.4 Mg Tab.subl, 0.4 MG SL Q5MIN PRN for CHEST PAIN, BOTTLE 11/11/18 Methimazole* (Methimazole*) 5 Mg Tablet, 5 MG PO DAILY, TAB 11/11/18 Discontinued Reported Medications Alfuzosin Hcl* (Alfuzosin Hcl*) 10 Mg Tab.er.24h, 10 MG PO DAILY, #30 TAB.SA 08/28/17 Sertraline Hcl* (Zoloft*) 25 Mg Tablet, 25 MG PO DAILY, #30 TAB 08/28/17 Tiotropium [place]* (Spiriva*) 18 Mcg Cap.w.dev, 1 CAP INHALATION DAILY, #30 CAP 08/28/17 Budesonide-Formoterol Fumarate* (Symbicort*) 80-4.5 Mcg Hfa.aer.ad, 2 PUFF INHALATION BID, BOTTLE 08/28/17 Methimazole* (Methimazole*) 10 Mg Tablet, 10 MG PO DAILY, TAB 08/28/17 Finasteride* (Finasteride*) 5 Mg Tablet, 5 MG PO DAILY, TAB 08/28/17 Potassium Chloride* (K-Dur*) 20 Meq Tab.prt.sr, 20 MEQ PO DAILY, TAB.SA 08/28/17 Dronedarone Hydrochloride* (Multaq*) 400 Mg Tablet, 400 MG PO BID, TAB 08/28/17 Furosemide* (Furosemide*) 40 Mg Tablet, 40 MG PO DAILY, TAB 08/28/17 Carvedilol* (Carvedilol*) 25 Mg Tablet, 25 MG PO BID, #60 TAB 08/28/17 Valsartan* (Diovan*) 80 Mg Tablet, 80 MG PO DAILY, TAB 08/28/17 Rosuvastatin Calcium* (Crestor*) 10 Mg Tablet, 10 MG PO QHS, #30 TAB 08/28/17 Isosorbide Mononitrate* (Isosorbide Mononitrate*) 60 Mg Tab.er.24h, 60 MG PO DAILY, TAB 08/28/17 Apixaban* (Eliquis*) 5 Mg Tablet, 5 MG PO BID, TAB 08/28/17 Medications Current Medications Dextrose/Sodium Chloride 1,000 ml @ 70 mls/hr [id number] IV Last administered on 11/12/18at 10:45; Admin Dose 70 MLS/HR; Start 11/11/18 at 20:31; Stop 11/12/18 at 20:30 IV Flush (NS 3 ml) 3 ml PER PROTOCOL IV ; Start 11/11/18 at 21:00 Acetaminophen (Tylenol Supp) 650 mg Q6H PRN [place] .PAIN 1-3 OR TEMP; Start 11/11/18 at 21:00 Alfuzosin HCl (Uroxatral) 10 mg DAILY@2100 PO ; Start 11/12/18 at 21:00 Apixaban (Eliquis) 5 mg BID PO Last administered on 11/12/18at 09:33; Admin Dose 5 MG; Start 11/12/18 at 09:00 Ascorbic Acid (Vitamin C) 1,000 mg DAILY PO Last administered on 11/12/18at 09:30; Admin Dose 1,000 MG; Start 11/12/18 at 09:00 Fluticasone Propionate (Flonase 0.05% Nasal) 1 spray DAILY NASAL ; Start 11/12/18 at 09:00 Methimazole (Tapazole) 5 mg DAILY PO ; Start 11/12/18 at 09:00 Albuterol (Ventolin Hfa) 2 puff Q6H PRN INH SHORTNESS OF BREATH; Start 11/12/18 at 07:00 Fluticasone/ Vilanterol (Breo Ellipta 100-25 Mcg Inh) 1 inh DAILY INH Last administered on 11/12/18at 09:33; Admin Dose 1 INH; Start 11/12/18 at 09:00 Dronedarone (Multaq) 400 mg BID PO Last administered on 11/12/18at 09:31; Admin Dose 400 MG; Start 11/12/18 at 09:00 Metoprolol Tartrate (Lopressor) 5 mg Q6 PRN IV ELEVATED BLOOD PRESSURE; Start 11/12/18 at 05:30 Lactulose (Enulose) 20 gm Q6 PO Last administered on 11/12/18at 06:22; Admin Dose 20 GM; Start 11/12/18 at 06:00; Stop 11/13/18 at 05:59 Atorvastatin Calcium (Lipitor) 40 mg DAILY@21 PO ; Start 11/12/18 at 21:00 Allergies: Coded Allergies: aspirin (Verified Allergy, Severe, BREATHING/SWELLING, 11/11/18) ibuprofen (Unverified Allergy, Unknown, 11/11/18) Social History Alcohol Use: none Smoking Status: Never smoker Drug Use: none KATHARINE CREWS Nov 12, 2018 12:17
[2018-11-12] MEDS ORDERED: SOD CHLORIDE 0.9% 100 ML ONE (13:24)
[2018-11-12] MEDS ORDERED: IOHEXOL 300MG/ML 150 ML BTL ONE (13:24)
--- NOTE | 2018-11-12 14:05 | PN ---
Date/Time of Note Date/Time of Note DATE: 11/12/18 TIME: 13:48 Assessment/Plan VTE Prophylaxis Risk score (from Ns)>0 risk: 4 SCD applied (from Ns): Yes Pharmacological prophylaxis: LMWH Lines/Catheters IV Catheter Type (from Nrs): Saline Lock Urinary Cath still in place: No Assessment/Plan Assessment/Plan 1. Acute ischemic stroke with right sided paralysis, plavix, statin, PT/OT and speech, follow up with neurology 2. Acute encephalopathy, due to stroke, improving 3. Chronic atrial fibrillation, hold eliquis for acute stroke 4. HTN, stable 5. CAD, Ischemic cardiomyopathy with h/o CHF with LVEF 35% in 2017, follow up with echo 6. History of ICD placement 7. History of NSVT: Continue to monitor 8. Dyslipidemia: Continue statin 9. DVT GI prophylaxis: lovenox Result Diagram: 11/12/18 0439 11/12/18 0439 Results 24hrs Laboratory Tests Test 11/11/18 17:23 11/11/18 17:25 11/11/18 18:00 11/11/18 18:14 Bedside Glucose 98 White Blood Count 6.5 Red Blood Count 4.48 L Hemoglobin 14.1 Hematocrit 42.2 Mean Corpuscular 94.2 Volume Mean Corpuscular 31.5 Hemoglobin Mean Corpuscular 33.4 Hemoglobin Concen t Red Cell 13.5 Distribution Width Platelet Count 168 Mean Platelet 10.5 H Volume Immature 0.300 Granulocytes % Neutrophils % 52.3 Lymphocytes % 32.7 Monocytes % 12.4 H Eosinophils % 1.2 Basophils % 1.1 Nucleated Red 0.0 Blood Cells % Immature 0.020 Granulocytes # Neutrophils # 3.4 Lymphocytes # 2.1 Monocytes # 0.8 Eosinophils # 0.1 Basophils # 0.1 Nucleated Red 0.0 Blood Cells # Prothrombin Time 13.7 # Prothrombin Time 1.1 Ratio INR International 1.04 Normalized Ratio Sodium Level 143 Potassium Level 4.0 Chloride Level 107 Carbon Dioxide 23 Level Anion Gap 13 Blood Urea 26 H Nitrogen Creatinine 1.15 Est Glomerular Filtrat Rate mL/min Glucose Level 104 Hemoglobin A1c 5.2 Calcium Level 9.5 Creatine Kinase 171 Creatine Kinase 1.0 Index Creatinine Kinase 1.63 MB (Mass) Troponin I < 0.012 Triglycerides 133 Level Cholesterol Level 159 LDL Cholesterol, 96 Calculated HDL Cholesterol 36 Cholesterol/HDL 4.4 Ratio Thyroid 1.000 Stimulating Hormone (TSH) Free Thyroxine 1.54 Ethyl Alcohol < 10.0 H Level Urine Color YELLOW Urine Clarity CLEAR Urine pH 7.0 Urine Specific 1.008 [place] Urine Ketones NEGATIVE Urine Nitrite NEGATIVE Urine Bilirubin NEGATIVE Urine NEGATIVE Urobilinogen Urine Leukocyte NEGATIVE Esterase Urine Hemoglobin NEGATIVE Urine Glucose NEGATIVE Urine Total NEGATIVE Protein Urine Opiates Negative Screen Urine Negative Barbiturates Urine Negative Amphetamines Screen Urine Negative Benzodiazepines Screen Urine Cocaine Negative Screen Urine Negative Cannabinoids Blood Gas Blood arterial Specimen Source Arterial Blood 11/11/2018 6:25:0 Date Drawn 6 PM Arterial Blood pH 7.419 (Temp corrected) Arterial Blood 36.5 pCO2 (Temp correct) Arterial Blood 69.7 L pO2 (Temp corrected) Arterial Blood 23.1 HCO3 Arterial Blood -0.9 Base Excess Arterial Blood 93.6 L Oxygen Saturation Taco Test ACCEPTAB Arterial Blood Right Radial Gas Puncture Site Arterial 0.7 Blood Carboxyhemo globin Arterial Blood 0.2 Methemoglobin Blood Gas A-a O2 36.3 H Differential Oxyhemoglobin 92.8 L Percent Blood Gas 37.0 Temperature Blood Gas ROOM AIR Modality FiO2 21.0 Blood Gas M.D. Notified Whom Blood Gas 11/11/2018 6:34:2 Notified Time 9 PM Test 11/11/18 19:12 11/11/18 22:00 11/12/18 04:39 11/12/18 05:45 Ammonia 32 H Creatine Kinase 168 211 H Creatine Kinase 0.7 0.7 Index Creatinine Kinase 1.17 1.41 MB (Mass) Troponin I 0.013 0.031 White Blood Count 7.7 Red Blood Count 4.44 L Hemoglobin 13.6 L Hematocrit 41.9 L Mean Corpuscular 94.4 Volume Mean Corpuscular 30.6 Hemoglobin Mean Corpuscular 32.5 Hemoglobin Concen t Red Cell 13.5 Distribution Width Platelet Count 153 Mean Platelet 11.2 H Volume Immature 0.300 Granulocytes % Neutrophils % 65.9 Lymphocytes % 20.8 Monocytes % 11.2 H Eosinophils % 0.8 Basophils % 1.0 Nucleated Red 0.0 Blood Cells % Immature 0.020 Granulocytes # Neutrophils # 5.1 Lymphocytes # 1.6 Monocytes # 0.9 Eosinophils # 0.1 Basophils # 0.1 Nucleated Red 0.0 Blood Cells # Sodium Level 142 Potassium Level 3.5 Chloride Level 108 Carbon Dioxide 23 Level Anion Gap 11 Blood Urea 23 H Nitrogen Creatinine 0.91 Est Glomerular Filtrat Rate mL/min Glucose Level 123 Calcium Level 8.5 Magnesium Level 1.9 Total Bilirubin 0.8 Direct Bilirubin 0.00 Indirect 0.8 Bilirubin Aspartate Amino 27 Transf (AST/SGOT) Alanine 28 Aminotransferase (ALT/SGPT) Alkaline 60 Phosphatase Total Protein 7.3 Albumin 3.9 Globulin 3.40 H Albumin/Globulin 1.14 Ratio Hepatitis A POSITIVE H Antibody Total Hepatitis B NEGATIVE Surface Antigen Hepatitis B NEGATIVE Surface Antibody Hepatitis B Core REACTIVE H Total Antibody Hepatitis C NEGATIVE Antibody Subjective 24 Hr Interval Summary Free Text/Dictation full alert and oriented but still slurring in speech and weak on right side Exam/Review of Systems Exam Vitals Vital Signs Date Temp Pulse Resp B/P (MAP) Pulse Ox O2 O2 Flow FiO2 Time Delivery Rate 11/12/18 98.1 74 18 140/90 95 Room Air 11:25 (107) 11/11/18 2 17:53 Intake and Output 11/11/18 11/11/18 11/12/18 1515:00 23:00 07:00 IntakeIntake Total 240 ml OutputOutput Total 700 ml 1350 ml BalanceBalance -700 ml -1110 ml Constitutional: alert, oriented, well developed Psych: no complaints, nl mood/affect Head: normocephalic, atraumatic Eyes: nl conjunctiva, EOMI, nl lids, PERRL ENMT: nl external ears & nose, nl lips & teeth, nl nasal mucosa & septum Neck: supple, non-tender Respiratory: clear to auscultation, normal air movement; No congested cough, No crackles/rales, No diminished breath sounds, No intercostal retraction, No labored breathing, No respirations, No tactile fremitus, No wheezing, No other Cardiovascular: regular rate and rhythm, nl pulses; No bruits, No diastolic murmur, No edema, No gallop, No irregular rhythm, No jugular venous distention (JVD), No murmurs/extra sounds, No rub, No systolic murmur, No S3, No S4, No other Gastrointestinal: soft, nl liver, spleen, non-tender; No ascites, No bowel sounds, No distended, No firm, No hepatomegaly, No mass, No rebound or guarding, No splenomegaly, No surgical scars, No tender, No other Musculoskeletal: nl extremities to inspection Extremities: normal pulses; No calf tenderness, No cyanosis, No clubbing, No edema, No pitting pedal edema, No palpable cord, No tenderness, No other Neurological: other (slurring speech, RUE/RLE 4/5) Results Results 24hrs Laboratory Tests Test 11/11/18 17:23 11/11/18 17:25 11/11/18 18:00 11/11/18 18:14 Bedside Glucose 98 White Blood Count 6.5 Red Blood Count 4.48 L Hemoglobin 14.1 Hematocrit 42.2 Mean Corpuscular 94.2 Volume Mean Corpuscular 31.5 Hemoglobin Mean Corpuscular 33.4 Hemoglobin Concen t Red Cell 13.5 Distribution Width Platelet Count 168 Mean Platelet 10.5 H Volume Immature 0.300 Granulocytes % Neutrophils % 52.3 Lymphocytes % 32.7 Monocytes % 12.4 H Eosinophils % 1.2 Basophils % 1.1 Nucleated Red 0.0 Blood Cells % Immature 0.020 Granulocytes # Neutrophils # 3.4 Lymphocytes # 2.1 Monocytes # 0.8 Eosinophils # 0.1 Basophils # 0.1 Nucleated Red 0.0 Blood Cells # Prothrombin Time 13.7 # Prothrombin Time 1.1 Ratio INR International 1.04 Normalized Ratio Sodium Level 143 Potassium Level 4.0 Chloride Level 107 Carbon Dioxide 23 Level Anion Gap 13 Blood Urea 26 H Nitrogen Creatinine 1.15 Est Glomerular Filtrat Rate mL/min Glucose Level 104 Hemoglobin A1c 5.2 Calcium Level 9.5 Creatine Kinase 171 Creatine Kinase 1.0 Index Creatinine Kinase 1.63 MB (Mass) Troponin I < 0.012 Triglycerides 133 Level Cholesterol Level 159 LDL Cholesterol, 96 Calculated HDL Cholesterol 36 Cholesterol/HDL 4.4 Ratio Thyroid 1.000 Stimulating Hormone (TSH) Free Thyroxine 1.54 Ethyl Alcohol < 10.0 H Level Urine Color YELLOW Urine Clarity CLEAR Urine pH 7.0 Urine Specific 1.008 [place] Urine Ketones NEGATIVE Urine Nitrite NEGATIVE Urine Bilirubin NEGATIVE Urine NEGATIVE Urobilinogen Urine Leukocyte NEGATIVE Esterase Urine Hemoglobin NEGATIVE Urine Glucose NEGATIVE Urine Total NEGATIVE Protein Urine Opiates Negative Screen Urine Negative Barbiturates Urine Negative Amphetamines Screen Urine Negative Benzodiazepines Screen Urine Cocaine Negative Screen Urine Negative Cannabinoids Blood Gas Blood arterial Specimen Source Arterial Blood 11/11/2018 6:25:0 Date Drawn 6 PM Arterial Blood pH 7.419 (Temp corrected) Arterial Blood 36.5 pCO2 (Temp correct) Arterial Blood 69.7 L pO2 (Temp corrected) Arterial Blood 23.1 HCO3 Arterial Blood -0.9 Base Excess Arterial Blood 93.6 L Oxygen Saturation Taco Test ACCEPTAB Arterial Blood Right Radial Gas Puncture Site Arterial 0.7 Blood Carboxyhemo globin Arterial Blood 0.2 Methemoglobin Blood Gas A-a O2 36.3 H Differential Oxyhemoglobin 92.8 L Percent Blood Gas 37.0 Temperature Blood Gas ROOM AIR Modality FiO2 21.0 Blood Gas M.D. Notified Whom Blood Gas 11/11/2018 6:34:2 Notified Time 9 PM Test 11/11/18 19:12 11/11/18 22:00 11/12/18 04:39 11/12/18 05:45 Ammonia 32 H Creatine Kinase 168 211 H Creatine Kinase 0.7 0.7 Index Creatinine Kinase 1.17 1.41 MB (Mass) Troponin I 0.013 0.031 White Blood Count 7.7 Red Blood Count 4.44 L Hemoglobin 13.6 L Hematocrit 41.9 L Mean Corpuscular 94.4 Volume Mean Corpuscular 30.6 Hemoglobin Mean Corpuscular 32.5 Hemoglobin Concen t Red Cell 13.5 Distribution Width Platelet Count 153 Mean Platelet 11.2 H Volume Immature 0.300 Granulocytes % Neutrophils % 65.9 Lymphocytes % 20.8 Monocytes % 11.2 H Eosinophils % 0.8 Basophils % 1.0 Nucleated Red 0.0 Blood Cells % Immature 0.020 Granulocytes # Neutrophils # 5.1 Lymphocytes # 1.6 Monocytes # 0.9 Eosinophils # 0.1 Basophils # 0.1 Nucleated Red 0.0 Blood Cells # Sodium Level 142 Potassium Level 3.5 Chloride Level 108 Carbon Dioxide 23 Level Anion Gap 11 Blood Urea 23 H Nitrogen Creatinine 0.91 Est Glomerular Filtrat Rate mL/min Glucose Level 123 Calcium Level 8.5 Magnesium Level 1.9 Total Bilirubin 0.8 Direct Bilirubin 0.00 Indirect 0.8 Bilirubin Aspartate Amino 27 Transf (AST/SGOT) Alanine 28 Aminotransferase (ALT/SGPT) Alkaline 60 Phosphatase Total Protein 7.3 Albumin 3.9 Globulin 3.40 H Albumin/Globulin 1.14 Ratio Hepatitis A POSITIVE H Antibody Total Hepatitis B NEGATIVE Surface Antigen Hepatitis B NEGATIVE Surface Antibody Hepatitis B Core REACTIVE H Total Antibody Hepatitis C NEGATIVE Antibody Medications Medication Current Medications Dextrose/Sodium Chloride 1,000 ml @ 70 mls/hr [id number] IV Last administered on 11/12/18at 10:45; Admin Dose 70 MLS/HR; Start 11/11/18 at 20:31; Stop 11/12/18 at 20:30 IV Flush (NS 3 ml) 3 ml PER PROTOCOL IV ; Start 11/11/18 at 21:00 Acetaminophen (Tylenol Supp) 650 mg Q6H PRN [place] .PAIN 1-3 OR TEMP; Start 11/11/18 at 21:00 Alfuzosin HCl (Uroxatral) 10 mg DAILY@2100 PO ; Start 11/12/18 at 21:00 Apixaban (Eliquis) 5 mg BID PO Last administered on 11/12/18at 09:33; Admin Dose 5 MG; Start 11/12/18 at 09:00 Ascorbic Acid (Vitamin C) 1,000 mg DAILY PO Last administered on 11/12/18at 09:30; Admin Dose 1,000 MG; Start 11/12/18 at 09:00 Fluticasone Propionate (Flonase 0.05% Nasal) 1 spray DAILY NASAL ; Start 11/12/18 at 09:00 Methimazole (Tapazole) 5 mg DAILY PO ; Start 11/12/18 at 09:00 Albuterol (Ventolin Hfa) 2 puff Q6H PRN INH SHORTNESS OF BREATH; Start 11/12/18 at 07:00 Fluticasone/ Vilanterol (Breo Ellipta 100-25 Mcg Inh) 1 inh DAILY INH Last admi nistered on 11/12/18at 09:33; Admin Dose 1 INH; Start 11/12/18 at 09:00 Dronedarone (Multaq) 400 mg BID PO Last administered on 11/12/18at 09:31; Admin Dose 400 MG; Start 11/12/18 at 09:00 Metoprolol Tartrate (Lopressor) 5 mg Q6 PRN IV ELEVATED BLOOD PRESSURE; Start 11/12/18 at 05:30 Lactulose (Enulose) 20 gm Q6 PO Last administered on 11/12/18at 13:18; Admin Dose 20 GM; Start 11/12/18 at 06:00; Stop 11/13/18 at 05:59 Atorvastatin Calcium (Lipitor) 40 mg DAILY@21 PO ; Start 11/12/18 at 21:00 DIAN AYALA MD Nov 12, 2018 14:00
[2018-11-12 15:05] VITALS: BP 143/88; PULSE 76; RESP 18
--- NOTE | 2018-11-12 15:54 | RADRPT ---
Echocardiogram Report Patient Name: LUIS DENISEPatient ID: [id number] : 1935 (83y 9m)Study Date: 11/12/2018 10:00:22 AM Gender: Anantcession #: [id number] Tech: Bran Tovar [facility] Location: [address] Ref.Physician: LISBET SIMMONS Height(Cm): BSA: Weight(Kg): Quality: AdequateOrder Physician: LISBET SIMMONS Account #: Procedures: Echocardiographic Report: Transthoracic echocardiogram with complete 2D, M-Mode, and doppler examination. Indications: Cerebrovascular Accident/Encephalopathy with bubble study. Measurements: 2D/M Mode Doppler Measurement Value Normal Range Measurement Value Normal Range LVIDd 2D 5.4 [ 4.2 - 5.8 ] cm AV Peak Lloyd 1.0 [ 100.0 - 170.0 ] cm/sec LVIDs 2D 4.4 [ 2.5 - 4.0 ] cm AV Peak PG 4.0 [ 2.0 - 9.0 ] mmHg LVPWd 2D 1.3 [ 0.6 - 1.0 ] cm LVOT Peak Lloyd 0.8 [ 70.0 - 110.0 ] cm/sec IVSd 2D 1.3 [ 0.6 - 1.0 ] cm LVOT Peak PG 3.0 [ 2.0 - 6.0 ] mmHg AoR Diam 2D 3.4 [ 2.6 - 3.4 ] cm MV E Peak Lloyd 1.1 [ 60.0 - 130.0 ] cm/sec EDV 2D 140.0 [ 62.0 - 150.0 ] ml MV Decel Time 144 [ 104 - 258 ] msec ESV 2D 87.2 [ 21.0 - 61.0 ] ml Lat E` Lloyd 0.1 [ 10.0 - 15.0 ] cm/sec EF 2D 37.7 [ 52.0 - 72.0 ] percent Lateral E/E` 12.7 [ 1.0 - 2.0 ] ratio LA Dimen 2D 4.4 [ 3.0 - 4.0 ] cm Med E` Lloyd 0.1 cm/sec TR Peak Lloyd 2.9 [ 100.0 - 280.0 ] cm/sec TR Peak PG 34.0 mmHg RVSP 42.0 [ 10.0 - 36.0 ] mmHg Findings: Left Ventricle: Normal left ventricular cavity size. Mild concentric left ventricular hypertrophy. Mmild to moderate left ventricular systolic dysfunction. Ejection fraction is visually estimated at 40 %. Echogenic structure at the apex concerning for possible thrombus versus artifact. Abnormal Diastolic Function. Right Ventricle: Normal right ventricular size. Mild right ventricular hypokinesis. Linear artifact in right ventricle suggestive of catheter, pacer lead, or ICD lead. Left Atrium: There is mild enlargement of left atrium. Right Atrium: The right atrium is normal in size. Atrial Septum: Bubble study was performed with and with out valsalva indicating no evidence of intra atrial shunt. Mitral Valve: Mild mitral leaflet calcification. Mild mitral annular calcification. Mild to moderate mitral valve regurgitation. Aortic Valve: No significant aortic stenosis or insufficiency. Aortic cusps appear mildly calcified. Tricuspid Valve: Normal appearance of the tricuspid valve. The estimated Peak RVSP is 42 mmHg. There is mild to moderate tricuspid regurgitation. Pericardium: Normal pericardium with no significant pericardial effusion. Aorta: Normal aortic root. IVC: Dilated IVC with respiratory collapse consistent with elevated right atrial pressure. Conclusions: Normal left ventricular cavity size. Mild concentric left ventricular hypertrophy. Mmild to moderate left ventricular systolic dysfunction. Ejection fraction is visually estimated at 40 %. Normal right ventricular size. Mild right ventricular hypokinesis. Linear artifact in right ventricle suggestive of catheter, pacer lead, or ICD lead. There is mild enlargement of left atrium. The right atrium is normal in size. Mild to moderate mitral valve regurgitation. No significant aortic stenosis or insufficiency. The estimated Peak RVSP is 42 mmHg. There is mild to moderate tricuspid regurgitation. Normal pericardium with no significant pericardial effusion. Bubble study was performed with and with out valsalva indicating no evidence of intra atrial shunt. Echogenic structure at the apex concerning for possible thrombus versus artifact. Electronically Signed By: Krzysztof Akins 2018-11-12 15:53:25 PDT
--- NOTE | 2018-11-12 18:02 | CONS ---
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 Echocardiogram with high likelihood of left apical thrombus I did discuss with the patient's family these results, we discussed Coumadin secondary to thrombus. Patient and family are concerned about compliance with Coumadin for the patient and routine INR checks. They have not made a decision yet what the plan of care is. I did discuss that Eliquis is not FDA recommended for LV thrombus and this would be off label. In the interim, would continue Eliquis until family makes a decision Consultation Date/Type/Reason Admit Date/Time Type of Consult Cardiology Reason for Consultation Cardiac evaluation Date/Time of Note DATE: 11/12/18 TIME: 17:52 Hx of Present Illness This is an 83-year-old male with excessive past medical history including cardia myopathy, CAD status post CABG, ICD placement, atrial fibrillation who presents with altered mental status and right-sided weakness yesterday. Symptoms were pretty sudden onset as per family. Showing progressive improvement with improvement in speech and his cognitive function. His weakness is improving. Denies any current chest pain, shortness of breath or palpitations. He does take Eliquis for anticoagulation. In further questioning, it appears patient has not been compliant with Eliquis on a regular basis with multiple times missing doses. He does follow-up with [facility] for his cardiac care. 12 point review of systems was performed with all pertinent positives and negatives mentioned above and all else is negative Past Medical History Atrial fibrillation Medical History: congestive heart failure, coronary artery disease, hypertension, hyperthyroid Home Meds Reported Medications Alfuzosin Hcl* (Alfuzosin Hcl*) 10 Mg Tab.er.24h, 10 MG PO DAILY, #30 TAB.SA 11/11/18 Budesonide-Formoterol Fumarate* (Symbicort*) 80-4.5 Mcg Hfa.aer.ad, 2 PUFF INHALATION BID, BOTTLE 11/11/18 Albuterol Sulfate (Proair Respiclick) 90 Mcg Aer.pow.ba, 2 PUFFS INHALATION Q6 PRN for SHORTNESS OF BREATH, #1 BOTTLE 11/11/18 Carvedilol* (Carvedilol*) 25 Mg Tablet, 25 MG PO BID, #60 TAB 11/11/18 Clopidogrel Bisulfate* (Clopidogrel Bisulfate*) 75 Mg Tablet, 75 MG PO DAILY, #30 TAB 11/11/18 Dronedarone Hydrochloride* (Multaq*) 400 Mg Tablet, 400 MG PO BID, TAB 11/11/18 Apixaban* (Eliquis*) 5 Mg Tablet, 5 MG PO BID, TAB 11/11/18 Fluticasone Propionate* (Fluticasone Propionate* Nasal) 50 Mcg/[place] - 16 Gm [place].susp, 1 SPRAY NASAL DAILY, #1 BOTTLE TO EACH NOSTRIL 11/11/18 Furosemide* (Furosemide*) 20 Mg Tablet, 40 MG PO DAILY, #60 TAB 11/11/18 Hydrocortisone* Topical (Hydrocortisone* Topical) 2.5%-28.3 Gm Cream..g., 1 APPLIC TOP BID, TUB 11/11/18 Losartan Potassium* (Losartan Potassium*) 25 Mg Tablet, 25 MG PO BID, TAB 11/11/18 Ascorbic Acid (Vitamin C) 500 Mg Tab, 1000 MG PO DAILY, TAB 11/11/18 Spironolactone* (Aldactone*) 25 Mg Tablet, 12.5 MG PO DAILY, #30 TAB 11/11/18 Rosuvastatin Calcium* (Crestor*) 10 Mg Tablet, 10 MG PO QHS, #30 TAB 11/11/18 Nitroglycerin* (Nitroglycerin* SL) 0.4 Mg Tab.subl, 0.4 MG SL Q5MIN PRN for CHEST PAIN, BOTTLE 11/11/18 Methimazole* (Methimazole*) 5 Mg Tablet, 5 MG PO DAILY, TAB 11/11/18 Discontinued Reported Medications Alfuzosin Hcl* (Alfuzosin Hcl*) 10 Mg Tab.er.24h, 10 MG PO DAILY, #30 TAB.SA 08/28/17 Sertraline Hcl* (Zoloft*) 25 Mg Tablet, 25 MG PO DAILY, #30 TAB 08/28/17 Tiotropium [place]* (Spiriva*) 18 Mcg Cap.w.dev, 1 CAP INHALATION DAILY, #30 CAP 08/28/17 Budesonide-Formoterol Fumarate* (Symbicort*) 80-4.5 Mcg Hfa.aer.ad, 2 PUFF INHALATION BID, BOTTLE 08/28/17 Methimazole* (Methimazole*) 10 Mg Tablet, 10 MG PO DAILY, TAB 08/28/17 Finasteride* (Finasteride*) 5 Mg Tablet, 5 MG PO DAILY, TAB 08/28/17 Potassium Chloride* (K-Dur*) 20 Meq Tab.prt.sr, 20 MEQ PO DAILY, TAB.SA 08/28/17 Dronedarone Hydrochloride* (Multaq*) 400 Mg Tablet, 400 MG PO BID, TAB 08/28/17 Furosemide* (Furosemide*) 40 Mg Tablet, 40 MG PO DAILY, TAB 08/28/17 Carvedilol* (Carvedilol*) 25 Mg Tablet, 25 MG PO BID, #60 TAB 08/28/17 Valsartan* (Diovan*) 80 Mg Tablet, 80 MG PO DAILY, TAB 08/28/17 Rosuvastatin Calcium* (Crestor*) 10 Mg Tablet, 10 MG PO QHS, #30 TAB 08/28/17 Isosorbide Mononitrate* (Isosorbide Mononitrate*) 60 Mg Tab.er.24h, 60 MG PO DAILY, TAB 08/28/17 Apixaban* (Eliquis*) 5 Mg Tablet, 5 MG PO BID, TAB 08/28/17 Medications Current Medications Dextrose/Sodium Chloride 1,000 ml @ 70 mls/hr [id number] IV Last administered on 11/12/18at 10:45; Admin Dose 70 MLS/HR; Start 11/11/18 at 20:31; Stop 11/12/18 at 20:30 IV Flush (NS 3 ml) 3 ml PER PROTOCOL IV ; Start 11/11/18 at 21:00 Acetaminophen (Tylenol Supp) 650 mg Q6H PRN MD .PAIN 1-3 OR TEMP; Start 11/11/18 at 21:00 Alfuzosin HCl (Uroxatral) 10 mg DAILY@2100 PO ; Start 11/12/18 at 21:00 Ascorbic Acid (Vitamin C) 1,000 mg DAILY PO Last administered on 11/12/18at 09:30; Admin Dose 1,000 MG; Start 11/12/18 at 09:00 Fluticasone Propionate (Flonase 0.05% Nasal) 1 spray DAILY NASAL ; Start 11/12/18 at 09:00 Methimazole (Tapazole) 5 mg DAILY PO ; Start 11/12/18 at 09:00 Albuterol (Ventolin Hfa) 2 puff Q6H PRN INH SHORTNESS OF BREATH; Start 11/12/18 at 07:00 Fluticasone/ Vilanterol (Breo Ellipta 100-25 Mcg Inh) 1 inh DAILY INH Last administered on 11/12/18at 09:33; Admin Dose 1 INH; Start 11/12/18 at 09:00 Dronedarone (Multaq) 400 mg BID PO Last administered on 11/12/18at 09:31; Admin Dose 400 MG; Start 11/12/18 at 09:00 Metoprolol Tartrate (Lopressor) 5 mg Q6 PRN IV ELEVATED BLOOD PRESSURE; Start 11/12/18 at 05:30 Lactulose (Enulose) 20 gm Q6 PO Last administered on 11/12/18at 13:18; Admin Dose 20 GM; Start 11/12/18 at 06:00; Stop 11/13/18 at 05:59 Atorvastatin Calcium (Lipitor) 40 mg DAILY@21 PO ; Start 11/12/18 at 21:00 Enoxaparin Sodium (Lovenox) 40 mg DAILY SC ; Start 11/13/18 at 09:00 Allergies: Coded Allergies: aspirin (Verified Allergy, Severe, BREATHING/SWELLING, 11/11/18) ibuprofen (Unverified Allergy, Unknown, 11/11/18) Past Surgical History Past Surgical Hx: coronary bypass surgery, other (ICD) Social History Alcohol Use: none Smoking Status: Never smoker Drug Use: none Exam/Review of Systems Vital Signs Vitals Vital Signs Date Temp Pulse Resp B/P (MAP) Pulse Ox O2 O2 Flow FiO2 Time Delivery Rate 11/12/18 98.7 76 18 143/88 97 Room Air 15:05 (106) 11/11/18 2 17:53 Intake and Output 11/11/18 11/11/18 11/12/18 1414:59 22:59 06:59 IntakeIntake Total 240 ml OutputOutput Total 700 ml 1350 ml BalanceBalance -700 ml -1110 ml Exam Constitutional: alert, oriented (Slow to respond but answers questions, no apparent distress, family bedside) Head: normocephalic Respiratory: other (Coarse breath sounds bilaterally, no wheezing) Cardiovascular: regular rate and rhythm (Occasional irregularities) Gastrointestinal: soft, non-tender, bowel sounds Extremities: edema (Trace) Labs Result Diagram: 11/12/18 0439 11/12/18 0439 Results 24hrs Laboratory Tests Test 11/11/18 18:00 11/11/18 18:14 11/11/18 19:12 11/11/18 22:00 Urine Color YELLOW Urine Clarity CLEAR Urine pH 7.0 Urine Specific 1.008 [place] Urine Ketones NEGATIVE Urine Nitrite NEGATIVE Urine Bilirubin NEGATIVE Urine NEGATIVE Urobilinogen Urine Leukocyte NEGATIVE Esterase Urine Hemoglobin NEGATIVE Urine Glucose NEGATIVE Urine Total NEGATIVE Protein Urine Opiates Negative Screen Urine Negative Barbiturates Urine Negative Amphetamines Screen Urine Negative Benzodiazepines Screen Urine Cocaine Negative Screen Urine Negative Cannabinoids Blood Gas Blood arterial Specimen Source Arterial Blood 11/11/2018 6:25:0 Date Drawn 6 PM Arterial Blood pH 7.419 (Temp corrected) Arterial Blood 36.5 pCO2 (Temp correct) Arterial Blood 69.7 L pO2 (Temp corrected) Arterial Blood 23.1 HCO3 Arterial Blood -0.9 Base Excess Arterial Blood 93.6 L Oxygen Saturation [place] Test ACCEPTAB Arterial Blood Right Radial Gas Puncture Site Arterial 0.7 Blood Carboxyhemo globin Arterial Blood 0.2 Methemoglobin Blood Gas A-a O2 36.3 H Differential Oxyhemoglobin 92.8 L Percent Blood Gas 37.0 Temperature Blood Gas ROOM AIR Modality FiO2 21.0 Blood Gas M.D. Notified Whom Blood Gas 11/11/2018 6:34:2 Notified Time 9 PM Ammonia 32 H Creatine Kinase 168 Creatine Kinase 0.7 Index Creatinine Kinase 1.17 MB (Mass) Troponin I 0.013 Test 11/12/18 04:39 11/12/18 05:45 White Blood Count 7.7 Red Blood Count 4.44 L Hemoglobin 13.6 L Hematocrit 41.9 L Mean Corpuscular 94.4 Volume Mean Corpuscular 30.6 Hemoglobin Mean Corpuscular 32.5 Hemoglobin Concen t Red Cell 13.5 Distribution Width Platelet Count 153 Mean Platelet 11.2 H Volume Immature 0.300 Granulocytes % Neutrophils % 65.9 Lymphocytes % 20.8 Monocytes % 11.2 H Eosinophils % 0.8 Basophils % 1.0 Nucleated Red 0.0 Blood Cells % Immature 0.020 Granulocytes # Neutrophils # 5.1 Lymphocytes # 1.6 Monocytes # 0.9 Eosinophils # 0.1 Basophils # 0.1 Nucleated Red 0.0 Blood Cells # Sodium Level 142 Potassium Level 3.5 Chloride Level 108 Carbon Dioxide 23 Level Anion Gap 11 Blood Urea 23 H Nitrogen Creatinine 0.91 Est Glomerular Filtrat Rate mL/min Glucose Level 123 Calcium Level 8.5 Magnesium Level 1.9 Total Bilirubin 0.8 Direct Bilirubin 0.00 Indirect 0.8 Bilirubin Aspartate Amino 27 Transf (AST/SGOT) Alanine 28 Aminotransferase (ALT/SGPT) Alkaline 60 Phosphatase Creatine Kinase 211 H Creatine Kinase 0.7 Index Creatinine Kinase 1.41 MB (Mass) Troponin I 0.031 Total Protein 7.3 Albumin 3.9 Globulin 3.40 H Albumin/Globulin 1.14 Ratio Hepatitis A POSITIVE H Antibody Total Hepatitis B NEGATIVE Surface Antigen Hepatitis B NEGATIVE Surface Antibody Hepatitis B Core REACTIVE H Total Antibody Hepatitis C NEGATIVE Antibody Imaging Imaging ECG H fibrillation at 101 bpm, QRS 112 ms, anterolateral Q waves, nonspecific ST abnormalities Medications Medications Current Medications Dextrose/Sodium Chloride 1,000 ml @ 70 mls/hr [id number] IV Last administered on 11/12/18at 10:45; Admin Dose 70 MLS/HR; Start 11/11/18 at 20:31; Stop 11/12/18 at 20:30 IV Flush (NS 3 ml) 3 ml PER PROTOCOL IV ; Start 11/11/18 at 21:00 Acetaminophen (Tylenol Supp) 650 mg Q6H PRN MD .PAIN 1-3 OR TEMP; Start 11/11/18 at 21:00 Alfuzosin HCl (Uroxatral) 10 mg DAILY@2100 PO ; Start 11/12/18 at 21:00 Ascorbic Acid (Vitamin C) 1,000 mg DAILY PO Last administered on 11/12/18at 09:30; Admin Dose 1,000 MG; Start 11/12/18 at 09:00 Fluticasone Propionate (Flonase 0.05% Nasal) 1 spray DAILY NASAL ; Start 11/12/18 at 09:00 Methimazole (Tapazole) 5 mg DAILY PO ; Start 11/12/18 at 09:00 Albuterol (Ventolin Hfa) 2 puff Q6H PRN INH SHORTNESS OF BREATH; Start 11/12/18 at 07:00 Fluticasone/ Vilanterol (Breo Ellipta 100-25 Mcg Inh) 1 inh DAILY INH Last administered on 11/12/18at 09:33; Admin Dose 1 INH; Start 11/12/18 at 09:00 Dronedarone (Multaq) 400 mg BID PO Last administered on 11/12/18at 09:31; Admin Dose 400 MG; Start 11/12/18 at 09:00 Metoprolol Tartrate (Lopressor) 5 mg Q6 PRN IV ELEVATED BLOOD PRESSURE; Start 11/12/18 at 05:30 Lactulose (Enulose) 20 gm Q6 PO Last administered on 11/12/18at 13:18; Admin Dose 20 GM; Start 11/12/18 at 06:00; Stop 11/13/18 at 05:59 Atorvastatin Calcium (Lipitor) 40 mg DAILY@21 PO ; Start 11/12/18 at 21:00 Enoxaparin Sodium (Lovenox) 40 mg DAILY SC ; Start 11/13/18 at 09:00 Krzysztof Akins DO Nov 12, 2018 18:02
[2018-11-12] MEDS ORDERED: NON-FORMULARY/PATIENT OWN MED (Rosuvastatin Calcium* (Crestor*) 10 MG) PO SCH (21:00)
[2018-11-12] MEDS: ALFUZOSIN (SR) 10 MG TAB PO SCH (21:00)
[2018-11-12] MEDS: ATORVASTATIN 40 MG TAB PO SCH (21:00)
[2018-11-12] MEDS: APIXABAN 5 MG TABLET PO SCH (21:01)
[2018-11-12 21:33] VITALS: BP 142/85; PULSE 69; RESP 18
[2018-11-13] VITALS (21 sets, daily range): BP systolic 119–147; BP diastolic 68–103; PULSE 62–90; RESP 16–25
[2018-11-13] MEDS: LACTULOSE 30ML CUP PO SCH (00:23)
[2018-11-13] MEDS: APIXABAN 5 MG TABLET PO SCH (08:26)
[2018-11-13] MEDS: DRONEDARONE HYDROCHLORIDE 400 MG TAB PO SCH ×2 (08:27→21:12)
[2018-11-13] MEDS: FLUTICASONE/VILANTEROL 100-25 INH SCH (08:28)
[2018-11-13] MEDS: ASCORBIC ACID 500 MG TAB PO SCH (08:28)
[2018-11-13] MEDS: METHIMAZOLE 5 MG TAB PO SCH (08:28)
[2018-11-13] MEDS ORDERED: CLOPIDOGREL 75 MG TAB PO SCH (09:00)
[2018-11-13] MEDS ORDERED: ENOXAPARIN 40 MG/0.4 ML SYG SC SCH (09:00)
[2018-11-13] MEDS: FLUTICASONE 0.05% 16 GM NAS SPRAY NASAL SCH (09:00)
--- NOTE | 2018-11-13 11:41 | CONS ---
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 Echocardiogram with high likelihood of left apical thrombus Spoke with family this morning and his primary hospitalist. I have reached out to neurology regarding anticoagulation and antiplatelet therapy plan of care given apical thrombus, atrial fibrillation and ischemic CVA. Awaiting callback. Consultation Date/Type/Reason Admit Date/Time Nov 11, 2018 at 19:26 Initial Consult Date Type of Consult Cardiology Requesting Provider: LISBET SIMMONS Date/Time of Note DATE: 11/13/18 TIME: 11:39 24 HR Interval Summary Free Text/Dictation No shortness of breath, chest pain or palpitations Exam/Review of Systems Vital Signs Vitals Vital Signs Date Temp Pulse Resp B/P (MAP) Pulse Ox O2 O2 Flow FiO2 Time Delivery Rate 11/13/18 97.8 80 18 124/78 96 11:14 (93) 11/13/18 Room Air 04:30 11/11/18 2 17:53 Intake and Output 11/12/18 11/12/18 11/13/18 1515:00 23:00 07:00 IntakeIntake Total 1360 ml OutputOutput Total 1000 ml BalanceBalance 360 ml Exam Constitutional: alert, oriented Head: normocephalic Respiratory: other (Coarse breath sounds bilaterally, no wheezing) Cardiovascular: irregular rhythm (S1-S2 heard) Gastrointestinal: soft, non-tender, bowel sounds Extremities: edema Labs Result Diagram: 11/13/18 0446 11/13/18 0446 Results 24hrs Laboratory Tests Test 11/13/18 04:46 White Blood Count 7.7 Red Blood Count 4.28 L Hemoglobin 13.2 L Hematocrit 40.4 L Mean Corpuscular Volume 94.4 Mean Corpuscular Hemoglobin 30.8 Mean Corpuscular Hemoglobin Concent 32.7 Red Cell Distribution Width 13.6 Platelet Count 150 Mean Platelet Volume 10.4 Immature Granulocytes % 0.300 Neutrophils % 63.6 Lymphocytes % 21.3 Monocytes % 12.7 H Eosinophils % 1.6 Basophils % 0.5 Nucleated Red Blood Cells % 0.0 Immature Granulocytes # 0.020 Neutrophils # 4.9 Lymphocytes # 1.6 Monocytes # 1.0 H Eosinophils # 0.1 Basophils # 0.0 Nucleated Red Blood Cells # 0.0 Sodium Level 142 Potassium Level 3.3 L Chloride Level 110 Carbon Dioxide Level 22 Anion Gap 10 Blood Urea Nitrogen 14 # Creatinine 0.95 Est Glomerular Filtrat Rate mL/min Glucose Level 102 Calcium Level 8.2 L Total Bilirubin 1.0 Direct Bilirubin 0.00 Indirect Bilirubin 1.0 Aspartate Amino Transf (AST/SGOT) 25 Alanine Aminotransferase (ALT/SGPT) 25 Alkaline Phosphatase 52 Total Protein 6.8 Albumin 3.7 Globulin 3.10 Albumin/Globulin Ratio 1.19 Medications Medications Current Medications IV Flush (NS 3 ml) 3 ml PER PROTOCOL IV ; Start 11/11/18 at 21:00 Acetaminophen (Tylenol Supp) 650 mg Q6H PRN ID .PAIN 1-3 OR TEMP; Start 11/11/18 at 21:00 Alfuzosin HCl (Uroxatral) 10 mg DAILY@2100 PO Last administered on 11/12/18at 21:00; Admin Dose 10 MG; Start 11/12/18 at 21:00 Ascorbic Acid (Vitamin C) 1,000 mg DAILY PO Last administered on 11/13/18 08:28; Admin Dose 1,000 MG; Start 11/12/18 at 09:00 Fluticasone Propionate (Flonase 0.05% Nasal) 1 spray DAILY NASAL ; Start 11/12/18 at 09:00 Methimazole (Tapazole) 5 mg DAILY PO Last administered on 11/13/18 08:28; Admin Dose 5 MG; Start 11/12/18 at 09:00 Albuterol (Ventolin Hfa) 2 puff Q6H PRN INH SHORTNESS OF BREATH; Start 11/12/18 at 07:00 Fluticasone/ Vilanterol (Breo Ellipta 100-25 Mcg Inh) 1 inh DAILY INH Last administered on 11/13/18 08:28; Admin Dose 1 INH; Start 11/12/18 at 09:00 Dronedarone (Multaq) 400 mg BID PO Last administered on 11/13/18 08:27; Admin Dose 400 MG; Start 11/12/18 at 09:00 Metoprolol Tartrate (Lopressor) 5 mg Q6 PRN IV ELEVATED BLOOD PRESSURE; Start 11/12/18 at 05:30 Atorvastatin Calcium (Lipitor) 40 mg DAILY@21 PO Last administered on 11/12/18at 21:00; Admin Dose 40 MG; Start 11/12/18 at 21:00 Apixaban (Eliquis) 5 mg BID PO Last administered on 11/13/18at 08:26; Admin Dose 5 MG; Start 11/12/18 at 21:00 Clopidogrel Bisulfate (plaVIX) 75 mg DAILY PO ; Start 11/13/18 at 09:00 Krzysztof Akins DO Nov 13, 2018 11:41
--- NOTE | 2018-11-13 11:48 | PN ---
Date/Time of Note Date/Time of Note DATE: 11/13/18 TIME: 11:33 Assessment/Plan VTE Prophylaxis Risk score (from Ns)>0 risk: 4 SCD applied (from Ns): Yes Pharmacological prophylaxis: apixaban Lines/Catheters IV [facility] (from [facility] Peripheral IV Urinary Cath still in place: No Assessment/Plan Assessment/Plan 1. Acute ischemic stroke with right sided paralysis, plavix, statin, PT/OT and speech, follow up with neurology 2. Acute encephalopathy, due to stroke, improved 3. Chronic atrial fibrillation, controlled rate, on eliquis(for LV thrombus) 4. HTN, stable 5. CAD, Ischemic cardiomyopathy with h/o CHF with LVEF 40%, stable, 6. History of ICD placement 7. High likely LV apical thrombus, Dr. Akins will discuss anticoagulant with Dr. Jacobo 8. Dyslipidemia: Continue statin 9. DVT GI prophylaxis: lovenox Result Diagram: 11/13/186 11/13/18 0446 Results 24hrs Laboratory Tests Test 11/13/18 04:46 White Blood Count 7.7 Red Blood Count 4.28 L Hemoglobin 13.2 L Hematocrit 40.4 L Mean Corpuscular Volume 94.4 Mean Corpuscular Hemoglobin 30.8 Mean Corpuscular Hemoglobin Concent 32.7 Red Cell Distribution Width 13.6 Platelet Count 150 Mean Platelet Volume 10.4 Immature Granulocytes % 0.300 Neutrophils % 63.6 Lymphocytes % 21.3 Monocytes % 12.7 H Eosinophils % 1.6 Basophils % 0.5 Nucleated Red Blood Cells % 0.0 Immature Granulocytes # 0.020 Neutrophils # 4.9 Lymphocytes # 1.6 Monocytes # 1.0 H Eosinophils # 0.1 Basophils # 0.0 Nucleated Red Blood Cells # 0.0 Sodium Level 142 Potassium Level 3.3 L Chloride Level 110 Carbon Dioxide Level 22 Anion Gap 10 Blood Urea Nitrogen 14 # Creatinine 0.95 Est Glomerular Filtrat Rate mL/min Glucose Level 102 Calcium Level 8.2 L Total Bilirubin 1.0 Direct Bilirubin 0.00 Indirect Bilirubin 1.0 Aspartate Amino Transf (AST/SGOT) 25 Alanine Aminotransferase (ALT/SGPT) 25 Alkaline Phosphatase 52 Total Protein 6.8 Albumin 3.7 Globulin 3.10 Albumin/Globulin Ratio 1.19 Subjective 24 Hr Interval Summary Free Text/Dictation weakness on right Exam/Review of Systems Exam Vitals Vital Signs Date Temp Pulse Resp B/P (MAP) Pulse Ox O2 O2 Flow FiO2 Time Delivery Rate 11/13/18 97.8 80 18 124/78 96 11:14 (93) 11/13/18 Room Air 04:30 11/11/18 2 17:53 Intake and Output 11/12/18 11/12/18 11/13/18 1515:00 23:00 07:00 IntakeIntake Total 1360 ml OutputOutput Total 1000 ml BalanceBalance 360 ml Constitutional: alert, oriented, well developed Psych: no complaints, nl mood/affect Head: normocephalic, atraumatic Eyes: nl conjunctiva, EOMI, nl lids ENMT: nl external ears & nose, nl lips & teeth, nl nasal mucosa & septum Neck: supple, non-tender Respiratory: clear to auscultation, normal air movement; No congested cough, No crackles/rales, No diminished breath sounds, No intercostal retraction, No labored breathing, No respirations, No tactile fremitus, No wheezing, No other Cardiovascular: irregular rhythm Gastrointestinal: soft, nl liver, spleen, non-tender Musculoskeletal: nl extremities to inspection Extremities: normal pulses; No calf tenderness, No cyanosis, No clubbing, No edema, No pitting pedal edema, No palpable cord, No tenderness, No other Neurological: [employer] II-XII intact, nl mental status, other (RUE/RLE 4/5) Results Results 24hrs Laboratory Tests Test 11/13/18 04:46 White Blood Count 7.7 Red Blood Count 4.28 L Hemoglobin 13.2 L Hematocrit 40.4 L Mean Corpuscular Volume 94.4 Mean Corpuscular Hemoglobin 30.8 Mean Corpuscular Hemoglobin Concent 32.7 Red Cell Distribution Width 13.6 Platelet Count 150 Mean Platelet Volume 10.4 Immature Granulocytes % 0.300 Neutrophils % 63.6 Lymphocytes % 21.3 Monocytes % 12.7 H Eosinophils % 1.6 Basophils % 0.5 Nucleated Red Blood Cells % 0.0 Immature Granulocytes # 0.020 Neutrophils # 4.9 Lymphocytes # 1.6 Monocytes # 1.0 H Eosinophils # 0.1 Basophils # 0.0 Nucleated Red Blood Cells # 0.0 Sodium Level 142 Potassium Level 3.3 L Chloride Level 110 Carbon Dioxide Level 22 Anion Gap 10 Blood Urea Nitrogen 14 # Creatinine 0.95 Est Glomerular Filtrat Rate mL/min Glucose Level 102 Calcium Level 8.2 L Total Bilirubin 1.0 Direct Bilirubin 0.00 Indirect Bilirubin 1.0 Aspartate Amino Transf (AST/SGOT) 25 Alanine Aminotransferase (ALT/SGPT) 25 Alkaline Phosphatase 52 Total Protein 6.8 Albumin 3.7 Globulin 3.10 Albumin/Globulin Ratio 1.19 Medications Medication Current Medications IV Flush (NS 3 ml) 3 ml PER PROTOCOL IV ; Start 11/11/18 at 21:00 Acetaminophen (Tylenol Supp) 650 mg Q6H PRN ID .PAIN 1-3 OR TEMP; Start 11/11/18 at 21:00 Alfuzosin HCl (Uroxatral) 10 mg DAILY@2100 PO Last administered on 11/12/18 21:00; Admin Dose 10 MG; Start 11/12/18 at 21:00 Ascorbic Acid (Vitamin C) 1,000 mg DAILY PO Last administered on 11/13/18 08:28; Admin Dose 1,000 MG; Start 11/12/18 at 09:00 Fluticasone Propionate (Flonase 0.05% Nasal) 1 spray DAILY NASAL ; Start 11/12/18 at 09:00 Methimazole (Tapazole) 5 mg DAILY PO Last administered on 11/13/18 08:28; Admin Dose 5 MG; Start 11/12/18 at 09:00 Albuterol (Ventolin Hfa) 2 puff Q6H PRN INH SHORTNESS OF BREATH; Start 11/12/18 at 07:00 Fluticasone/ Vilanterol (Breo Ellipta 100-25 Mcg Inh) 1 inh DAILY INH Last administered on 11/13/18 08:28; Admin Dose 1 INH; Start 11/12/18 at 09:00 Dronedarone (Multaq) 400 mg BID PO Last administered on 11/13/18 08:27; Admin Dose 400 MG; Start 11/12/18 at 09:00 Metoprolol Tartrate (Lopressor) 5 mg Q6 PRN IV ELEVATED BLOOD PRESSURE; Start 11/12/18 at 05:30 Atorvastatin Calcium (Lipitor) 40 mg DAILY@21 PO Last administered on 11/12/18 21:00; Admin Dose 40 MG; Start 11/12/18 at 21:00 Apixaban (Eliquis) 5 mg BID PO Last administered on 7/12/19at 08:26; Admin Dose 5 MG; Start 11/12/18 at 21:00 Clopidogrel Bisulfate (plaVIX) 75 mg DAILY PO ; Start 11/13/18 at 09:00 DIAN AYALA MD Nov 13, 2018 11:43
[2018-11-13] MEDS ORDERED: HEPARIN 1000 UNITS/ML 10 ML INJ IV PRN ×2 (12:30→21:00)
--- NOTE | 2018-11-13 15:44 | CONS ---
Assessment/Plan Assessment/Plan Assessment/Plan (Recall) 83 M c/ afib and other cerebrovascular risk factors, who presents for evaluation of transient ams w/ ? R sided numbness x 1 hr... Serial Head CTs confirmed a new posterior L MCA territory infarction.. The patient endorses noncompliance w/ eliquis at home, which is the likely underlying precipitant.. Echo is concerning for apical thrombus vs. artifact. 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 LDL 96 A1C nl UA neg P: ? Repeat Echo Reversible anticoagulant if absolutely necessary from a cardiac perspective (otherwise, Plavix monotherapy daily through 11/18, then transition to eliquis monotherapy on 11/19..) Tx to ICU for close observation and frequent (q1-2 hr) neuro checks if anticoagulation resumed in advance of 11/19; increase in NIHSS should prompt stat head CT to eval for hemorrhagic transformation [place] as necessary PT/OT/ST as necessary BP control and other management and supportive care per primary Will follow clinically Consultation Date/Type/Reason Admit Date/Time Nov 11, 2018 at 19:26 Type of Consult Neurology Reason for Consultation ams Requesting Provider: LISBET SIMMONS Date/Time of Note DATE: 11/13/18 TIME: 15:38 24 HR Interval Summary Free Text/Dictation s/p repeat head ct Exam/Review of Systems Exam Vitals Vital Signs Date Temp Pulse Resp B/P (MAP) Pulse Ox O2 O2 Flow FiO2 Time Delivery Rate 11/13/18 97.8 78 18 125/69 97 15:33 (87) 11/13/18 Room Air 04:30 11/11/18 2 17:53 Intake and Output 11/12/18 11/12/18 11/13/18 1515:00 23:00 07:00 IntakeIntake Total 1360 ml OutputOutput Total 1000 ml BalanceBalance 360 ml Results Result Diagram: 11/13/18 0446 11/13/186 Results 24hrs Laboratory Tests Test 11/13/18 04:46 White Blood Count 7.7 Red Blood Count 4.28 L Hemoglobin 13.2 L Hematocrit 40.4 L Mean Corpuscular Volume 94.4 Mean Corpuscular Hemoglobin 30.8 Mean Corpuscular Hemoglobin Concent 32.7 Red Cell Distribution Width 13.6 Platelet Count 150 Mean Platelet Volume 10.4 Immature Granulocytes % 0.300 Neutrophils % 63.6 Lymphocytes % 21.3 Monocytes % 12.7 H Eosinophils % 1.6 Basophils % 0.5 Nucleated Red Blood Cells % 0.0 Immature Granulocytes # 0.020 Neutrophils # 4.9 Lymphocytes # 1.6 Monocytes # 1.0 H Eosinophils # 0.1 Basophils # 0.0 Nucleated Red Blood Cells # 0.0 Sodium Level 142 Potassium Level 3.3 L Chloride Level 110 Carbon Dioxide Level 22 Anion Gap 10 Blood Urea Nitrogen 14 # Creatinine 0.95 Est Glomerular Filtrat Rate mL/min Glucose Level 102 Calcium Level 8.2 L Total Bilirubin 1.0 Direct Bilirubin 0.00 Indirect Bilirubin 1.0 Aspartate Amino Transf (AST/SGOT) 25 Alanine Aminotransferase (ALT/SGPT) 25 Alkaline Phosphatase 52 Total Protein 6.8 Albumin 3.7 Globulin 3.10 Albumin/Globulin Ratio 1.19 Medications Medication Current Medications IV Flush (NS 3 ml) 3 ml PER PROTOCOL IV ; Start 11/11/18 at 21:00 Acetaminophen (Tylenol Supp) 650 mg Q6H PRN [place] .PAIN 1-3 OR TEMP; Start 11/11/18 at 21:00 Alfuzosin HCl (Uroxatral) 10 mg DAILY@2100 PO Last administered on 11/12/18at 21:00; Admin Dose 10 MG; Start 11/12/18 at 21:00 Ascorbic Acid (Vitamin C) 1,000 mg DAILY PO Last administered on 11/13/18at 08:28; Admin Dose 1,000 MG; Start 11/12/18 at 09:00 Fluticasone Propionate (Flonase 0.05% Nasal) 1 spray DAILY NASAL ; Start 03/23 at 09:00 Methimazole (Tapazole) 5 mg DAILY PO Last administered on 11/13/18at 08:28; Admin Dose 5 MG; Start 11/12/18 at 09:00 Albuterol (Ventolin Hfa) 2 puff Q6H PRN INH SHORTNESS OF BREATH; Start 11/12/18 at 07:00 Fluticasone/ Vilanterol (Breo Ellipta 100-25 Mcg Inh) 1 inh DAILY INH Last ad ministered on 11/13/18at 08:28; Admin Dose 1 INH; Start 11/12/18 at 09:00 Dronedarone (Multaq) 400 mg BID PO Last administered on 11/13/18at 08:27; Admin Dose 400 MG; Start 11/12/18 at 09:00 Metoprolol Tartrate (Lopressor) 5 mg Q6 PRN IV ELEVATED BLOOD PRESSURE; Start 11/12/18 at 05:30 Atorvastatin Calcium (Lipitor) 40 mg DAILY@21 PO Last administered on 11/12/18at 21:00; Admin Dose 40 MG; Start 11/12/18 at 21:00 Warfarin Sodium (Coumadin) 5 mg DAILY@17 PO ; Start 11/13/18 at 17:00 Heparin Sodium (Porcine) 250 ml @ 0 mls/hr PER PROTOCOL IV ; Start 11/13/18 at 12:30; Status UNV Heparin Sodium (Porcine) (Heparin (1000 Units/ml)) 4,000 unit PER PROTOCOL PRN IV aPTT<47; Start 11/13/18 at 21:00 KATHARINE CREWS Nov 13, 2018 15:44
[2018-11-13] MEDS: WARFARIN 5 MG TAB PO SCH (18:18)
[2018-11-13] MEDS: ATORVASTATIN 40 MG TAB PO SCH (21:12)
[2018-11-13] MEDS: HEPARIN 25000 UNITS/250 ML 250 ML IV SCH (21:25)
[2018-11-13] MEDS: ALFUZOSIN (SR) 10 MG TAB PO SCH (22:48)
[2018-11-14] VITALS (47 sets, daily range): BP systolic 100–149; BP diastolic 52–110; PULSE 58–99; RESP 15–26
[2018-11-14] MEDS ORDERED: POTASSIUM CHLORIDE (SR) 20 MEQ TAB PO ONE (03:57)
[2018-11-14] MEDS ORDERED: METOPROLOL 5 MG INJ IV ONE (04:00)
[2018-11-14] MEDS: ASCORBIC ACID 500 MG TAB PO SCH (08:30)
[2018-11-14] MEDS: DRONEDARONE HYDROCHLORIDE 400 MG TAB PO SCH ×2 (08:30→20:38)
[2018-11-14] MEDS: FLUTICASONE/VILANTEROL 100-25 INH SCH (08:31)
[2018-11-14] MEDS: METHIMAZOLE 5 MG TAB PO SCH (08:31)
[2018-11-14] MEDS: FLUTICASONE 0.05% 16 GM NAS SPRAY NASAL SCH (09:00)
--- NOTE | 2018-11-14 10:03 | PN ---
Date/Time of Note Date/Time of Note DATE: 11/14/18 TIME: 09:56 Assessment/Plan VTE Prophylaxis Risk score (from Ns)>0 risk: 5 SCD applied [place] [facility] [place] Yes Pharmacological prophylaxis: heparin, warfarin tx Lines/Catheters IV C[facility] Type (from [facility] [place] Urinary Cath still in place: No Assessment/Plan Assessment/Plan 1. Acute ischemic stroke with right sided numbness: plavix, statin, PT/OT and speech. Neurology is following. 2. Acute encephalopathy, due to stroke, improved 3. Chronic atrial fibrillation, controlled rate. 4. HTN, stable 5. CAD, Ischemic cardiomyopathy with h/o CHF with LVEF 40%, stable, 6. History of ICD placement 7. High likely LV apical thrombus on echo: heparin gtt to warfarin. Close monitoring in ICU for hemorrhagic conversion of stroke. 8. Dyslipidemia: Continue statin 9. DVT GI prophylaxis: heparin gtt, warfarin. Result Diagram: 11/14/18 0502 11/14/18 0502 Subjective 24 Hr Interval Summary Free Text/Dictation No acute overnight events. Patient in ICU on heparin bridge to warfarin. Son and [id number] at bedside. I updated them on the plan and answered questions. Patient is doing well. Exam/Review of Systems Exam Vitals Vital Signs Date Temp Pulse Resp B/P (MAP) Pulse Ox O2 O2 Flow FiO2 Time Delivery Rate 11/14/18 65 17 122/84 98 06:15 (97) 11/14/18 Room Air 06:00 11/14/18 97.1 04:00 11/11/18 2 17:53 Intake and Output 11/13/18 11/13/18 11/14/18 1515:00 23:00 07:00 IntakeIntake Total 400 ml 734.25 ml 182.0 ml OutputOutput Total 200 ml 100 ml BalanceBalance 400 ml 534.25 ml 82.0 ml Exam Constitutional: Robust elderly man supine in bed, well appearing. Head: normocephalic, atraumatic Eyes: nl conjunctiva, EOMI, PERRL. ENMT: Moist mucous membranes, clear oropharynx. Neck: supple, non-tender, no lymphadenopathy. Respiratory: clear to auscultation, normal air movement; No congested cough, No crackles/rales, No diminished breath sounds, No intercostal retraction, No labored breathing, No respirations, No tactile fremitus, No wheezing, No other Cardiovascular: irregularly irregular. No murmurs. Gastrointestinal: soft, nontender, nondistended. Extremities: normal pulses; No calf tenderness, No cyanosis, No clubbing, No edema, No pitting pedal edema, No palpable cord, No tenderness Neurological: PET STYLIST II-XII tested and intact throughout. I detect slight weakness 4/5 with extension of the LUE and LLE. There is 5/5 strength with LUE and LLE flexion; as well as all muscle groups of RLE and RUE. There is diminished sensation to light touch on the RIGHT side below the skull base. Sensation of face is intact bilaterally. Results Results 24hrs Laboratory Tests Test 11/13/18 16:28 11/13/18 22:57 11/14/18 03:00 11/14/18 05:02 Activated 30.0 57.4 H Partial Thromboplast Time Sodium Level 140 139 Potassium Level 3.9 3.6 Chloride Level 106 107 Carbon Dioxide Level 21 21 Anion Gap 13 11 Blood Urea Nitrogen 22 H 20 Creatinine 1.14 1.12 Est Glomerular Filtrat Rate mL/min Glucose Level 97 101 Calcium Level 8.9 8.7 Magnesium Level 2.0 Prothrombin Time 15.3 H Prothrombin Time 1.2 Ratio INR International 1.20 Normalized Ratio White Blood Count 6.7 Red Blood Count 4.23 L Hemoglobin 13.2 L Hematocrit 39.9 L Mean Corpuscular 94.3 Volume Mean Corpuscular 31.2 Hemoglobin Mean Corpuscular 33.1 Hemoglobin Concent Red Cell 13.7 Distribution Width Platelet Count 147 Mean Platelet Volume 10.5 H Immature 0.100 Granulocytes % Neutrophils % 60.7 Lymphocytes % 21.6 Monocytes % 14.5 H Eosinophils % 2.4 Basophils % 0.7 Nucleated Red Blood 0.0 Cells % Immature 0.010 Granulocytes # Neutrophils # 4.0 Lymphocytes # 1.4 Monocytes # 1.0 H Eosinophils # 0.2 Basophils # 0.1 Nucleated Red Blood 0.0 Cells # Total Bilirubin 0.8 Direct Bilirubin 0.00 Indirect Bilirubin 0.8 Aspartate Amino 24 Transf (AST/SGOT) Alanine 27 Aminotransferase (AL T/SGPT) Alkaline Phosphatase 51 Total Protein 6.8 Albumin 3.6 Globulin 3.20 Albumin/Globulin 1.12 Ratio Medications Medication Current Medications IV Flush (NS 3 ml) 3 ml PER PROTOCOL IV ; Start 11/11/18 at 21:00 Acetaminophen (Tylenol Supp) 650 mg Q6H PRN [place] .PAIN 1-3 OR TEMP; Start 11/11/18 at 21:00 Alfuzosin HCl (Uroxatral) 10 mg DAILY@2100 PO Last administered on 11/13/18at 22:48; Admin Dose 10 MG; Start 11/12/18 at 21:00 Ascorbic Acid (Vitamin C) 1,000 mg DAILY PO Last administered on 11/14/18 08:30; Admin Dose 1,000 MG; Start 11/12/18 at 09:00 Fluticasone Propionate (Flonase 0.05% Nasal) 1 spray DAILY NASAL ; Start 11/12/18 at 09:00 Methimazole (Tapazole) 5 mg DAILY PO Last administered on 11/13/18 08:28; Admin Dose 5 MG; Start 11/12/18 at 09:00 Albuterol (Ventolin Hfa) 2 puff Q6H PRN INH SHORTNESS OF BREATH; Start 11/12/18 at 07:00 Fluticasone/ Vilanterol (Breo Ellipta 100-25 Mcg Inh) 1 inh DAILY INH Last administered on 11/14/18 08:31; Admin Dose 1 INH; Start 11/12/18 at 09:00 Dronedarone (Multaq) 400 mg BID PO Last administered on 11/14/18 08:30; Admin Dose 400 MG; Start 11/12/18 at 09:00 Metoprolol Tartrate (Lopressor) 5 mg Q6 PRN IV ELEVATED BLOOD PRESSURE; Start 11/12/18 at 05:30 Atorvastatin Calcium (Lipitor) 40 mg DAILY@21 PO Last administered on 11/13/18 21:12; Admin Dose 40 MG; Start 11/12/18 at 21:00 Warfarin Sodium (Coumadin) 5 mg DAILY@17 PO Last administered on 11/13/18 18:18; Admin Dose 5 MG; Start 11/13/18 at 17:00 Heparin Sodium (Porcine) 250 ml @ 900 mls/hr PER PROTOCOL IV Last administered on 11/13/18 21:25; Admin Dose 9 MLS/HR; Start 11/13/18 at 21:00 Heparin Sodium (Porcine) (Heparin (1000 Units/ml)) 4,000 unit PER PROTOCOL PRN IV aPTT<47; Start 11/13/18 at 21:00 VITA LOBATO MD Nov 14, 2018 10:03
[2018-11-14] MEDS: FUROSEMIDE 20 MG TAB PO SCH (11:16)
[2018-11-14] MEDS: SPIRONOLACTONE 25 MG TAB PO SCH (11:16)
--- NOTE | 2018-11-14 13:58 | CONS ---
Assessment/Plan Assessment/Plan Assessment/Plan (Daily) Assessment Acute ischemic CVA Atrial fibrillation, poor compliance with anticoagulation High likelihood left ventricular apical thrombus Cardia myopathy with left ventricular ejection fraction 40% CAD with history of CABG Hypertension Plan: continue current meds dw patient and Consultation Date/Type/Reason Admit Date/Time Nov 11, 2018 at 19:26 Initial Consult Date Type of Consult Cardiology Requesting Provider: LISBET SIMMONS Date/Time of Note DATE: 11/14/18 TIME: 13:55 24 HR Interval Summary Free Text/Dictation no chest pain, no sob, no palpitations Detailed Summary Respiratory: no complaints Cardiovascular: no complaints Gastrointestinal: no complaints Musculoskeletal: no complaints Skin: no complaints Neurologic: no complaints Exam/Review of Systems Vital Signs Vitals Vital Signs Date Temp Pulse Resp B/P (MAP) Pulse Ox O2 O2 Flow FiO2 Time Delivery Rate 11/14/18 93 23 121/75 97 Room Air 10:02 (90) 11/14/18 97.8 08:05 11/11/18 2 17:53 Intake and Output 11/13/18 11/13/18 11/14/18 1515:00 23:00 07:00 IntakeIntake Total 400 ml 734.25 ml 192.5 ml OutputOutput Total 200 ml 100 ml BalanceBalance 400 ml 534.25 ml 92.5 ml Exam Head: normocephalic, atraumatic Neck: supple Respiratory: clear to auscultation Cardiovascular: irregular rhythm Gastrointestinal: soft Musculoskeletal: nl extremities to inspection Labs Result Diagram: 11/14/18 0502 11/14/18 0502 Results 24hrs Laboratory Tests Test 11/13/18 16:28 11/13/18 22:57 11/14/18 03:00 11/14/18 05:02 Activated 30.0 57.4 H Partial Thromboplast Time Sodium Level 140 139 Potassium Level 3.9 3.6 Chloride Level 106 107 Carbon Dioxide Level 21 21 Anion Gap 13 11 Blood Urea Nitrogen 22 H 20 Creatinine 1.14 1.12 Est Glomerular Filtrat Rate mL/min Glucose Level 97 101 Calcium Level 8.9 8.7 Magnesium Level 2.0 Prothrombin Time 15.3 H Prothrombin Time 1.2 Ratio INR International 1.20 Normalized Ratio White Blood Count 6.7 Red Blood Count 4.23 L Hemoglobin 13.2 L Hematocrit 39.9 L Mean Corpuscular 94.3 Volume Mean Corpuscular 31.2 Hemoglobin Mean Corpuscular 33.1 Hemoglobin Concent Red Cell 13.7 Distribution Width Platelet Count 147 Mean Platelet Volume 10.5 H Immature 0.100 Granulocytes % Neutrophils % 60.7 Lymphocytes % 21.6 Monocytes % 14.5 H Eosinophils % 2.4 Basophils % 0.7 Nucleated Red Blood 0.0 Cells % Immature 0.010 Granulocytes # Neutrophils # 4.0 Lymphocytes # 1.4 Monocytes # 1.0 H Eosinophils # 0.2 Basophils # 0.1 Nucleated Red Blood 0.0 Cells # Total Bilirubin 0.8 Direct Bilirubin 0.00 Indirect Bilirubin 0.8 Aspartate Amino 24 Transf (AST/SGOT) Alanine 27 Aminotransferase (AL T/SGPT) Alkaline Phosphatase 51 Total Protein 6.8 Albumin 3.6 Globulin 3.20 Albumin/Globulin 1.12 Ratio Test 11/14/18 09:40 Activated 117.6 *H Partial Thromboplast Time Medications Medications Current Medications IV Flush (NS 3 ml) 3 ml PER PROTOCOL IV ; Start 11/11/18 at 21:00 Acetaminophen (Tylenol Supp) 650 mg Q6H PRN [place] .PAIN 1-3 OR TEMP; Start 11/11/18 at 21:00 Alfuzosin HCl (Uroxatral) 10 mg DAILY@2100 PO Last administered on 11/13/18at 22:48; Admin Dose 10 MG; Start 11/12/18 at 21:00 Ascorbic Acid (Vitamin C) 1,000 mg DAILY PO Last administered on 11/14/18at 08:30; Admin Dose 1,000 MG; Start 11/12/18 at 09:00 Fluticasone Propionate (Flonase 0.05% Nasal) 1 spray DAILY NASAL ; Start 11/12/18 at 09:00 Methimazole (Tapazole) 5 mg DAILY PO Last administered on 11/13/18at 08:28; Admin Dose 5 MG; Start 11/12/18 at 09:00 Albuterol (Ventolin Hfa) 2 puff Q6H PRN INH SHORTNESS OF BREATH; Start 11/12/18 at 07:00 Fluticasone/ Vilanterol (Breo Ellipta 100-25 Mcg Inh) 1 inh DAILY INH Last administered on 11/14/18at 08:31; Admin Dose 1 INH; Start 11/12/18 at 09:00 Dronedarone (Multaq) 400 mg BID PO Last administered on 11/14/18 08:30; Admin Dose 400 MG; Start 11/12/18 at 09:00 Metoprolol Tartrate (Lopressor) 5 mg Q6 PRN IV ELEVATED BLOOD PRESSURE; Start 11/12/18 at 05:30 Atorvastatin Calcium (Lipitor) 40 mg DAILY@21 PO Last administered on 11/13/18 21:12; Admin Dose 40 MG; Start 11/12/18 at 21:00 Warfarin Sodium (Coumadin) 5 mg DAILY@17 PO Last administered on 11/13/18 18:18; Admin Dose 5 MG; Start 11/13/18 at 17:00 Heparin Sodium (Porcine) 250 ml @ 900 mls/hr PER PROTOCOL IV Last administered on 11/13/18 21:25; Admin Dose 9 MLS/HR; Start 11/13/18 at 21:00 Heparin Sodium (Porcine) (Heparin (1000 Units/ml)) 4,000 unit PER PROTOCOL PRN [place] V aPTT<47; Start 11/13/18 at 21:00 Furosemide (Lasix) 40 mg DAILY PO Last administered on 11/14/18 11:16; Admin Dose 40 MG; Start 11/14/18 at 10:00 Spironolactone (Aldactone) 12.5 mg DAILY PO Last administered on 11/14/18 11:16; Admin Dose 12.5 MG; Start 11/14/18 at 10:00 LULA MARINA MD Nov 14, 2018 13:57
[2018-11-14] MEDS: WARFARIN 5 MG TAB PO SCH (17:08)
[2018-11-14] MEDS: ALFUZOSIN (SR) 10 MG TAB PO SCH (20:38)
[2018-11-14] MEDS: ATORVASTATIN 40 MG TAB PO SCH (20:38)
[2018-11-14] MEDS: HEPARIN 25000 UNITS/250 ML 250 ML IV SCH (23:11)
[2018-11-15] VITALS (26 sets, daily range): BP systolic 97–140; BP diastolic 64–118; PULSE 70–108; RESP 15–26
[2018-11-15] MEDS: FLUTICASONE/VILANTEROL 100-25 INH SCH (09:00)
[2018-11-15] MEDS: METHIMAZOLE 5 MG TAB PO SCH (09:00)
[2018-11-15] MEDS: FLUTICASONE 0.05% 16 GM NAS SPRAY NASAL SCH (09:00)
[2018-11-15] MEDS: ASCORBIC ACID 500 MG TAB PO SCH (09:20)
[2018-11-15] MEDS: SPIRONOLACTONE 25 MG TAB PO SCH (09:21)
[2018-11-15] MEDS: FUROSEMIDE 20 MG TAB PO SCH (09:21)
[2018-11-15] MEDS: DRONEDARONE HYDROCHLORIDE 400 MG TAB PO SCH ×2 (09:21→21:20)
--- NOTE | 2018-11-15 12:27 | PN ---
Date/Time of Note Date/Time of Note DATE: 11/15/18 TIME: 12:26 Assessment/Plan VTE Prophylaxis Risk score (from Ns)>0 risk: 8 SCD applied (from Ns): Yes Pharmacological prophylaxis: heparin, warfarin tx Lines/Catheters IV C[facility]ter Type (from [facility]): Peripheral IV Urinary Cath still in place: No Assessment/Plan Assessment/Plan 1. Acute ischemic stroke with right sided numbness: plavix, statin, PT/OT and speech. Neurology is following. 2. Acute encephalopathy, due to stroke, improved 3. Chronic atrial fibrillation, controlled rate. 4. HTN, stable 5. CAD, Ischemic cardiomyopathy with h/o CHF with LVEF 40%, stable, 6. History of ICD placement 7. High likely LV apical thrombus on echo: heparin gtt to warfarin. Close monitoring in ICU for hemorrhagic conversion of stroke. 8. Dyslipidemia: Continue statin 9. DVT GI prophylaxis: heparin gtt, warfarin. Dispo: From my perspective patient is medically stable for transfer to [facility] and get PT/OT. Pending neurology clearance to leave ICU. Result Diagram: 11/15/18 0424 11/15/184 Subjective 24 Hr Interval Summary Free Text/Dictation No acute overnight events. Patient ambulating around room, doing well. Family at bedside. I updated everyone on the patient's status and plan. Exam/Review of Systems Exam Vitals Vital Signs Date Temp Pulse Resp B/P (MAP) Pulse Ox O2 O2 Flow FiO2 Time Delivery Rate 11/15/18 98 23 124/95 97 Room Air 11:00 (105) 11/15/18 97.8 08:00 11/11/18 2 17:53 Intake and Output 11/14/18 11/14/18 11/15/18 1515:00 23:00 07:00 IntakeIntake Total 419.50 ml 353.00 ml 47.0 ml OutputOutput Total 80 ml 150 ml 50 ml BalanceBalance 339.50 ml 203.00 ml -3.0 ml Exam Constitutional: Robust elderly man sitting in chair, well appearing. Head: normocephalic, atraumatic Eyes: nl conjunctiva, EOMI, PERRL. ENMT: Moist mucous membranes, clear oropharynx. Neck: supple, non-tender, no lymphadenopathy. Respiratory: clear to auscultation, normal air movement; No congested cough, No crackles/rales, No diminished breath sounds, No intercostal retraction, No labored breathing, No respirations, No tactile fremitus, No wheezing, No other Cardiovascular: irregularly irregular. No murmurs. Gastrointestinal: soft, nontender, nondistended. Extremities: normal pulses; No calf tenderness, No cyanosis, No clubbing, No edema, No pitting pedal edema, No palpable cord, No tenderness Results Results 24hrs Laboratory Tests Test 11/14/18 19:19 11/15/18 01:39 11/15/18 04:24 11/15/18 07:52 Activated 98.6 *H 92.1 *H 75.7 *H Partial Thromboplast Time White Blood Count 7.0 Red Blood Count 4.27 L Hemoglobin 13.4 L Hematocrit 40.7 L Mean Corpuscular 95.3 Volume Mean Corpuscular 31.4 Hemoglobin Mean Corpuscular 32.9 Hemoglobin Concent Red Cell 13.7 Distribution Width Platelet Count 157 Mean Platelet Volume 10.9 H Immature 0.300 Granulocytes % Neutrophils % 59.2 Lymphocytes % 23.3 Monocytes % 14.3 H Eosinophils % 1.9 Basophils % 1.0 Nucleated Red Blood 0.0 Cells % Immature 0.020 Granulocytes # Neutrophils # 4.2 Lymphocytes # 1.6 Monocytes # 1.0 H Eosinophils # 0.1 Basophils # 0.1 Nucleated Red Blood 0.0 Cells # Prothrombin Time 15.9 H Prothrombin Time 1.2 Ratio INR International 1.26 Normalized Ratio Sodium Level 139 Potassium Level 3.5 Chloride Level 106 Carbon Dioxide Level 24 Anion Gap 9 Blood Urea Nitrogen 22 H Creatinine 1.20 Est Glomerular Filtrat Rate mL/min Glucose Level 101 Calcium Level 8.9 Total Bilirubin 0.6 Direct Bilirubin 0.00 Indirect Bilirubin 0.6 Aspartate Amino 25 Transf (AST/SGOT) Alanine 31 Aminotransferase (AL T/SGPT) Alkaline Phosphatase 59 Total Protein 7.2 Albumin 3.8 Globulin 3.40 H Albumin/Globulin 1.11 Ratio Medications Medication Current Medications IV Flush (NS 3 ml) 3 ml PER PROTOCOL IV ; Start 11/11/18 at 21:00 Acetaminophen (Tylenol Supp) 650 mg Q6H PRN [place] .PAIN 1-3 OR TEMP; Start 11/11/18 at 21:00 Alfuzosin HCl (Uroxatral) 10 mg DAILY@2100 PO Last administered on 11/14/18 20:38; Admin Dose 10 MG; Start 11/12/18 at 21:00 Ascorbic Acid (Vitamin C) 1,000 mg DAILY PO Last administered on 11/15/18 09:20; Admin Dose 1,000 MG; Start 11/12/18 at 09:00 Fluticasone Propionate (Flonase 0.05% Nasal) 1 spray DAILY NASAL ; Start 11/12/18 at 09:00 Methimazole (Tapazole) 5 mg DAILY PO Last administered on 11/13/18 08:28; Adm in Dose 5 MG; Start 11/12/18 at 09:00 Albuterol (Ventolin Hfa) 2 puff Q6H PRN INH SHORTNESS OF BREATH; Start 11/12/18 at 07:00 Fluticasone/ Vilanterol (Breo Ellipta 100-25 Mcg Inh) 1 inh DAILY INH Last administered on 11/14/18 08:31; Admin Dose 1 INH; Start 11/12/18 at 09:00 Dronedarone (Multaq) 400 mg BID PO Last administered on 11/15/18 09:21; Admin Dose 400 MG; Start 11/12/18 at 09:00 Metoprolol Tartrate (Lopressor) 5 mg Q6 PRN IV ELEVATED BLOOD PRESSURE; Start 11/12/18 at 05:30 Atorvastatin Calcium (Lipitor) 40 mg DAILY@21 PO Last administered on 11/14/18 20:38; Admin Dose 40 MG; Start 11/12/18 at 21:00 Warfarin Sodium (Coumadin) 5 mg DAILY@17 PO Last administered on 11/14/18 1 7:08; Admin Dose 5 MG; Start 11/13/18 at 17:00 Heparin Sodium (Porcine) 250 ml @ 900 mls/hr PER PROTOCOL IV Last administered on 11/14/18 23:11; Admin Dose 7.5 MLS/HR; Start 11/13/18 at 21:00 Heparin Sodium (Porcine) (Heparin (1000 Units/ml)) 4,000 unit PER PROTOCOL PRN IV aPTT<47; Start 11/13/18 at 21:00 Furosemide (Lasix) 40 mg DAILY PO Last administered on 11/15/18 09:21; Admin Dose 40 MG; Start 11/14/18 at 10:00 Spironolactone (Aldactone) 12.5 mg DAILY PO Last administered on 11/15/18at 09:21; Admin Dose 12.5 MG; Start 11/14/18 at 10:00 VITA LOBATO MD Nov 15, 2018 12:27
--- NOTE | 2018-11-15 13:45 | CONS ---
Assessment/Plan Assessment/Plan Assessment/Plan (Recall) 83 M c/ afib and other cerebrovascular risk factors, who presents for evaluation of transient ams w/ ? R sided numbness x 1 hr... Serial Head CTs confirmed a new posterior L MCA territory infarction.. The patient endorses noncompliance w/ eliquis at home, which is the likely underlying precipitant.. Echo is concerning for apical thrombus vs. artifact.. Now on therapeutic anticoagulation for the above.. 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 LDL 96 A1C nl UA neg P: LV thrombus management per cardiology BP control and other management and supportive care per primary PT/OT/ST as necessary Will follow clinically Consultation Date/Type/Reason Admit Date/Time Nov 11, 2018 at 19:26 Type of Consult Neurology Reason for Consultation ams Requesting Provider: LISBET SIMMONS Date/Time of Note DATE: 11/15/18 TIME: 13:42 24 HR Interval Summary Free Text/Dictation Tx to ICU for initiation of anticoagulation emilee-acute stroke Exam/Review of Systems Exam Vitals Vital Signs Date Temp Pulse Resp B/P (MAP) Pulse Ox O2 O2 Flow FiO2 Time Delivery Rate 11/15/18 108 12:00 11/15/18 23 124/95 97 Room Air 11:00 (105) 11/15/18 97.8 08:00 11/11/18 2 17:53 Intake and Output 11/14/18 11/14/18 11/15/18 1515:00 23:00 07:00 IntakeIntake Total 419.50 ml 353.00 ml 47.0 ml OutputOutput Total 80 ml 150 ml 50 ml BalanceBalance 339.50 ml 203.00 ml -3.0 ml Results Result Diagram: 11/15/18 0424 11/15/18 0424 Results 24hrs Laboratory Tests Test 11/14/18 19:19 11/15/18 01:39 11/15/18 04:24 11/15/18 07:52 Activated 98.6 *H 92.1 *H 75.7 *H Partial Thromboplast Time White Blood Count 7.0 Red Blood Count 4.27 L Hemoglobin 13.4 L Hematocrit 40.7 L Mean Corpuscular 95.3 Volume Mean Corpuscular 31.4 Hemoglobin Mean Corpuscular 32.9 Hemoglobin Concent Red Cell 13.7 Distribution Width Platelet Count 157 Mean Platelet Volume 10.9 H Immature 0.300 Granulocytes % Neutrophils % 59.2 Lymphocytes % 23.3 Monocytes % 14.3 H Eosinophils % 1.9 Basophils % 1.0 Nucleated Red Blood 0.0 Cells % Immature 0.020 Granulocytes # Neutrophils # 4.2 Lymphocytes # 1.6 Monocytes # 1.0 H Eosinophils # 0.1 Basophils # 0.1 Nucleated Red Blood 0.0 Cells # Prothrombin Time 15.9 H Prothrombin Time 1.2 Ratio INR International 1.26 Normalized Ratio Sodium Level 139 Potassium Level 3.5 Chloride Level 106 Carbon Dioxide Level 24 Anion Gap 9 Blood Urea Nitrogen 22 H Creatinine 1.20 Est Glomerular Filtrat Rate mL/min Glucose Level 101 Calcium Level 8.9 Total Bilirubin 0.6 Direct Bilirubin 0.00 Indirect Bilirubin 0.6 Aspartate Amino 25 Transf (AST/SGOT) Alanine 31 Aminotransferase (AL T/SGPT) Alkaline Phosphatase 59 Total Protein 7.2 Albumin 3.8 Globulin 3.40 H Albumin/Globulin 1.11 Ratio Medications Medication Current Medications IV Flush (NS 3 ml) 3 ml PER PROTOCOL IV ; Start 11/11/18 at 21:00 Acetaminophen (Tylenol Supp) 650 mg Q6H PRN MD .PAIN 1-3 OR TEMP; Start 11/11/18 at 21:00 Alfuzosin HCl (Uroxatral) 10 mg DAILY@2100 PO Last administered on 11/14/18at 20:38; Admin Dose 10 MG; Start 11/12/18 at 21:00 Ascorbic Acid (Vitamin C) 1,000 mg DAILY PO Last administered on 11/15/18at 09:20; Admin Dose 1,000 MG; Start 11/12/18 at 09:00 Fluticasone Propionate (Flonase 0.05% Nasal) 1 spray DAILY NASAL ; Start 11/12/18 at 09:00 Methimazole (Tapazole) 5 mg DAILY PO Last administered on 11/13/18at 08:28; Admin Dose 5 MG; Start 11/12/18 at 09:00 Albuterol (Ventolin Hfa) 2 puff Q6H PRN INH SHORTNESS OF BREATH; Start 11/12/18 at 07:00 Fluticasone/ Vilanterol (Breo Ellipta 100-25 Mcg Inh) 1 inh DAILY INH Last administered on 7/13/19at 08:31; Admin Dose 1 INH; Start 11/12/18 at 09:00 Dronedarone (Multaq) 400 mg BID PO Last administered on 11/15/18 09:21; Admin Dose 400 MG; Start 11/12/18 at 09:00 Metoprolol Tartrate (Lopressor) 5 mg Q6 PRN IV ELEVATED BLOOD PRESSURE; Start 11/12/18 at 05:30 Atorvastatin Calcium (Lipitor) 40 mg DAILY@21 PO Last administered on 11/14/18 20:38; Admin Dose 40 MG; Start 11/12/18 at 21:00 Warfarin Sodium (Coumadin) 5 mg DAILY@17 PO Last administered on 11/14/18 17:08; Admin Dose 5 MG; Start 11/13/18 at 17:00 Heparin Sodium (Porcine) 250 ml @ 900 mls/hr PER PROTOCOL IV Last administered on 11/14/18 23:11; Admin Dose 7.5 MLS/HR; Start 11/13/18 at 21:00 Heparin Sodium (Porcine) (Heparin (1000 Units/ml)) 4,000 unit PER PROTOCOL PRN IV aPTT<47; Start 11/13/18 at 21:00 Furosemide (Lasix) 40 mg DAILY PO Last administered on 11/15/18 09:21; Admin Dose 40 MG; Start 11/14/18 at 10:00 Spironolactone (Aldactone) 12.5 mg DAILY PO Last administered on 11/15/18 09:21; Admin Dose 12.5 MG; Start 11/14/18 at 10:00 KATHARINE CREWS Nov 15, 2018 13:45
--- NOTE | 2018-11-15 15:30 | CONS ---
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 Echocardiogram with high likelihood of left apical thrombus Heparin bridging until INR therapeutic with Coumadin Would recommend outpatient repeat echocardiogram with Definity or other such contrast study to further evaluate left ventricular apex Consultation Date/Type/Reason Admit Date/Time Nov 11, 2018 at 19:26 Initial Consult Date Type of Consult Cardiology Requesting Provider: LISBET SIMMONS Date/Time of Note DATE: 11/15/18 TIME: 15:29 24 HR Interval Summary Free Text/Dictation No chest pain, shortness of breath Exam/Review of Systems Vital Signs Vitals Vital Signs Date Temp Pulse Resp B/P (MAP) Pulse Ox O2 O2 Flow FiO2 Time Delivery Rate 11/15/18 108 12:00 11/15/18 23 124/95 97 Room Air 11:00 (105) 11/15/18 97.8 08:00 11/11/18 2 17:53 Intake and Output 11/14/18 11/14/18 11/15/18 1515:00 23:00 07:00 IntakeIntake Total 419.50 ml 353.00 ml 47.0 ml OutputOutput Total 80 ml 150 ml 50 ml BalanceBalance 339.50 ml 203.00 ml -3.0 ml Exam Constitutional: alert, oriented (No apparent distress) Head: normocephalic Respiratory: other (Coarse breath sounds bilaterally, no wheezing) Cardiovascular: irregular rhythm (S1-S2 heard) Gastrointestinal: soft, non-tender, bowel sounds Extremities: edema (Trace) Labs Result Diagram: 11/15/184 11/15/184 Results 24hrs Laboratory Tests Test 11/14/18 19:19 11/15/18 01:39 11/15/18 04:24 11/15/18 07:52 Activated 98.6 *H 92.1 *H 75.7 *H Partial Thromboplast Time White Blood Count 7.0 Red Blood Count 4.27 L Hemoglobin 13.4 L Hematocrit 40.7 L Mean Corpuscular 95.3 Volume Mean Corpuscular 31.4 Hemoglobin Mean Corpuscular 32.9 Hemoglobin Concent Red Cell 13.7 Distribution Width Platelet Count 157 Mean Platelet Volume 10.9 H Immature 0.300 Granulocytes % Neutrophils % 59.2 Lymphocytes % 23.3 Monocytes % 14.3 H Eosinophils % 1.9 Basophils % 1.0 Nucleated Red Blood 0.0 Cells % Immature 0.020 Granulocytes # Neutrophils # 4.2 Lymphocytes # 1.6 Monocytes # 1.0 H Eosinophils # 0.1 Basophils # 0.1 Nucleated Red Blood 0.0 Cells # Prothrombin Time 15.9 H Prothrombin Time 1.2 Ratio INR International 1.26 Normalized Ratio Sodium Level 139 Potassium Level 3.5 Chloride Level 106 Carbon Dioxide Level 24 Anion Gap 9 Blood Urea Nitrogen 22 H Creatinine 1.20 Est Glomerular Filtrat Rate mL/min Glucose Level 101 Calcium Level 8.9 Total Bilirubin 0.6 Direct Bilirubin 0.00 Indirect Bilirubin 0.6 Aspartate Amino 25 Transf (AST/SGOT) Alanine 31 Aminotransferase (AL T/SGPT) Alkaline Phosphatase 59 Total Protein 7.2 Albumin 3.8 Globulin 3.40 H Albumin/Globulin 1.11 Ratio Medications Medications Current Medications IV Flush (NS 3 ml) 3 ml PER PROTOCOL IV ; Start 11/11/18 at 21:00 Acetaminophen (Tylenol Supp) 650 mg Q6H PRN AL .PAIN 1-3 OR TEMP; Start 11/11/18 at 21:00 Alfuzosin HCl (Uroxatral) 10 mg DAILY@2100 PO Last administered on 11/14/18at 20:38; Admin Dose 10 MG; Start 11/12/18 at 21:00 Ascorbic Acid (Vitamin C) 1,000 mg DAILY PO Last administered on 11/15/18at 09:20; Admin Dose 1,000 MG; Start 11/12/18 at 09:00 Fluticasone Propionate (Flonase 0.05% Nasal) 1 spray DAILY NASAL ; Start 11/02 05/23 at 09:00 Methimazole (Tapazole) 5 mg DAILY PO Last administered on 11/13/18at 08:28; Admin Dose 5 MG; Start 11/12/18 at 09:00 Albuterol (Ventolin Hfa) 2 puff Q6H PRN INH SHORTNESS OF BREATH; Start 11/12/18 at 07:00 Fluticasone/ Vilanterol (Breo Ellipta 100-25 Mcg Inh) 1 inh DAILY INH Last adm inistered on 11/14/18 08:31; Admin Dose 1 INH; Start 11/12/18 at 09:00 Dronedarone (Multaq) 400 mg BID PO Last administered on 11/15/18 09:21; Admin Dose 400 MG; Start 11/12/18 at 09:00 Metoprolol Tartrate (Lopressor) 5 mg Q6 PRN IV ELEVATED BLOOD PRESSURE; Start 11/12/18 at 05:30 Atorvastatin Calcium (Lipitor) 40 mg DAILY@21 PO Last administered on 11/14/18 20:38; Admin Dose 40 MG; Start 11/12/18 at 21:00 Warfarin Sodium (Coumadin) 5 mg DAILY@17 PO Last administered on 11/14/18 17:08; Admin Dose 5 MG; Start 11/13/18 at 17:00 Heparin Sodium (Porcine) 250 ml @ 900 mls/hr PER PROTOCOL IV Last administered on 11/14/18 23:11; Admin Dose 7.5 MLS/HR; Start 11/13/18 at 21:00 Heparin Sodium (Porcine) (Heparin (1000 Units/ml)) 4,000 unit PER PROTOCOL PRN IV aPTT<47; Start 11/13/18 at 21:00 Furosemide (Lasix) 40 mg DAILY PO Last administered on 11/15/18 09:21; Admin Dose 40 MG; Start 11/14/18 at 10:00 Spironolactone (Aldactone) 12.5 mg DAILY PO Last administered on 11/15/18 09:21; Admin Dose 12.5 MG; Start 11/14/18 at 10:00 Krzysztof Akins DO Nov 15, 2018 15:30
[2018-11-15] MEDS: WARFARIN 5 MG TAB PO SCH (17:18)
[2018-11-15] MEDS: ALFUZOSIN (SR) 10 MG TAB PO SCH (21:57)
[2018-11-15] MEDS: ATORVASTATIN 40 MG TAB PO SCH (21:57)
[2018-11-16] VITALS (26 sets, daily range): BP systolic 100–151; BP diastolic 54–103; PULSE 61–105; RESP 15–40
[2018-11-16] MEDS: FLUTICASONE 0.05% 16 GM NAS SPRAY NASAL SCH (09:00)
[2018-11-16] MEDS: FLUTICASONE/VILANTEROL 100-25 INH SCH (09:00)
[2018-11-16] MEDS: METHIMAZOLE 5 MG TAB PO SCH (09:08)
[2018-11-16] MEDS: DRONEDARONE HYDROCHLORIDE 400 MG TAB PO SCH ×2 (09:08→21:08)
[2018-11-16] MEDS: SPIRONOLACTONE 25 MG TAB PO SCH (09:09)
[2018-11-16] MEDS: ASCORBIC ACID 500 MG TAB PO SCH (09:09)
[2018-11-16] MEDS: FUROSEMIDE 20 MG TAB PO SCH (09:09)
--- NOTE | 2018-11-16 09:15 | PN ---
Date/Time of Note Date/Time of Note DATE: 11/16/18 TIME: 09:02 Assessment/Plan VTE Prophylaxis Risk score (from Ns)>0 risk: 6 SCD applied (from [facility] [place]): No SCD contraindicated: other Pharmacological prophylaxis: heparin, warfarin tx Lines/Catheters IV Catheter Type (from [facility]): Peripheral IV Urinary Cath still in place: No Assessment/Plan Hospital Course S: Patient had no acute events overnight, still on heparin drip also taking Coumadin. INR today 1.7. Tolerating diet. O: VS - see below PE: Gen: Lying in bed, no acute distress Head: normocephalic, atraumatic Eyes: nl conjunctiva, EOMI, PERRL. ENMT: Moist mucous membranes, clear oropharynx. Neck: supple, non-tender, no lymphadenopathy. Respiratory: clear to auscultation, normal air movement; Cardiovascular: irregularly irregular. No R or G Gastrointestinal: soft, nontender, nondistended. Extremities: no LE edema B/L NEURO: No apparent focal deficits Assessment/Plan: 83-year-old male who presents with: 1. Acute ischemic stroke with right sided numbness: Slowly improving, neurology on the case -For now continue, statin, PT/OT and speech. Neurology is following. 2. Acute encephalopathy: due to stroke, improved -Monitor for now 3. Chronic atrial fibrillation, controlled rate -Monitor, continue heparin and Coumadin for the thrombus in the left apical area, follow cardiology recommendations 4. HTN- stable -Monitor, continue current medications 5. CAD, Ischemic cardiomyopathy with h/o CHF with LVEF 40%-stable - Monitor, continue current medications 6. History of ICD placement -Monitor for now 7. High likely LV apical thrombus on echo: -INR today 1.7, continue heparin gtt to warfarin, monitor INR. -Continue for now close monitoring in ICU to monitor for any possible hemorrhagic conversion of stroke. 8. Dyslipidemia: Continue statin 9. DVT GI prophylaxis: heparin gtt, warfarin. Critical care time spent in patient care today equals 45 minutes. Result Diagram: 11/15/18 0424 11/15/18 0424 Results 24hrs Laboratory Tests Test 11/15/18 15:43 11/15/18 21:56 11/16/18 04:29 Activated Partial Thromboplast Time 60.9 H 64.4 H Prothrombin Time 20.1 #H Prothrombin Time Ratio 1.6 INR International Normalized Ratio 1.70 Exam/Review of Systems Exam Vitals Vital Signs Date Temp Pulse Resp B/P (MAP) Pulse Ox O2 O2 Flow FiO2 Time Delivery Rate 11/16/18 86 28 119/83 96 Room Air 08:00 (95) 11/16/18 97.8 04:00 Intake and Output 11/15/18 11/15/18 11/16/18 1515:00 23:00 07:00 IntakeIntake Total 347.75 ml 246.00 ml 46.00 ml OutputOutput Total 300 ml 150 ml 690 ml BalanceBalance 47.75 ml 96.00 ml -644.00 ml Results Results 24hrs Laboratory Tests Test 11/15/18 15:43 11/15/18 21:56 11/16/18 04:29 Activated Partial Thromboplast Time 60.9 H 64.4 H Prothrombin Time 20.1 #H Prothrombin Time Ratio 1.6 INR International Normalized Ratio 1.70 Medications Medication Current Medications IV Flush (NS 3 ml) 3 ml PER PROTOCOL IV ; Start 11/11/18 at 21:00 Acetaminophen (Tylenol Supp) 650 mg Q6H PRN MS .PAIN 1-3 OR TEMP; Start 11/11/18 at 21:00 Alfuzosin HCl (Uroxatral) 10 mg DAILY@2100 PO Last administered on 11/15/18at 21:57; Admin Dose 10 MG; Start 11/12/18 at 21:00 Ascorbic Acid (Vitamin C) 1,000 mg DAILY PO Last administered on 11/15/18at 09:20; Admin Dose 1,000 MG; Start 11/12/18 at 09:00 Fluticasone Propionate (Flonase 0.05% Nasal) 1 spray DAILY NASAL ; Start 11/12/18 at 09:00 Methimazole (Tapazole) 5 mg DAILY PO Last administered on 11/13/18at 08:28; Admin Dose 5 MG; Start 11/12/18 at 09:00 Albuterol (Ventolin Hfa) 2 puff Q6H PRN INH SHORTNESS OF BREATH; Start 11/12/18 at 07:00 Fluticasone/ Vilanterol (Breo Ellipta 100-25 Mcg Inh) 1 inh DAILY INH Last administered on 11/14/18at 08:31; Admin Dose 1 INH; Start 11/12/18 at 09:00 Dronedarone (Multaq) 400 mg BID PO Last administered on 11/15/18 21:20; Admin Dose 400 MG; Start 11/12/18 at 09:00 Metoprolol Tartrate (Lopressor) 5 mg Q6 PRN IV ELEVATED BLOOD PRESSURE; Start 11/12/18 at 05:30 Atorvastatin Calcium (Lipitor) 40 mg DAILY@21 PO Last administered on 11/15/18 21:57; Admin Dose 40 MG; Start 11/12/18 at 21:00 Warfarin Sodium (Coumadin) 5 mg DAILY@17 PO Last administered on 11/15/18 17:18; Admin Dose 5 MG; Start 11/13/18 at 17:00 Heparin Sodium (Porcine) 250 ml @ 900 mls/hr PER PROTOCOL IV Last administered on 11/14/18 23:11; Admin Dose 7.5 MLS/HR; Start 11/13/18 at 21:00 Heparin Sodium (Porcine) (Heparin (1000 Units/ml)) 4,000 unit PER PROTOCOL PRN IV aPTT<47; Start 11/13/18 at 21:00 Furosemide (Lasix) 40 mg DAILY PO Last administered on 11/15/18 09:21; Admin Dose 40 MG; Start 11/14/18 at 10:00 Spironolactone (Aldactone) 12.5 mg DAILY PO Last administered on 11/15/18 09:21; Admin Dose 12.5 MG; Start 11/14/18 at 10:00 RADHA SANCHEZ Nov 16, 2018 09:15
[2018-11-16] MEDS: WARFARIN 5 MG TAB PO SCH (17:00)
[2018-11-16] MEDS: HEPARIN 25000 UNITS/250 ML 250 ML IV SCH (17:05)
--- NOTE | 2018-11-16 19:39 | CONS ---
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 Echocardiogram with high likelihood of left apical thrombus Heparin bridging until INR therapeutic with Coumadin Would recommend outpatient repeat echocardiogram with Definity or other such contrast study to further evaluate left ventricular apex Consultation Date/Type/Reason Admit Date/Time Nov 11, 2018 at 19:26 Initial Consult Date Type of Consult Cardiology Requesting Provider: LISBET SIMMONS Date/Time of Note DATE: 11/16/18 TIME: 19:38 24 HR Interval Summary Free Text/Dictation no sob,cp,palp Exam/Review of Systems Vital Signs Vitals Vital Signs Date Temp Pulse Resp B/P (MAP) Pulse Ox O2 O2 Flow FiO2 Time Delivery Rate 11/16/18 96 20 118/93 98 Room Air 18:00 (101) 11/16/18 97.9 16:00 Intake and Output 11/15/18 11/15/18 11/16/18 1515:00 23:00 07:00 IntakeIntake Total 347.75 ml 246.00 ml 51.75 ml OutputOutput Total 300 ml 150 ml 690 ml BalanceBalance 47.75 ml 96.00 ml -638.25 ml Exam Constitutional: alert, oriented Head: normocephalic Respiratory: other (course bs, no wheeze) Cardiovascular: regular rate and rhythm (s1s2) Gastrointestinal: soft, non-tender, bowel sounds Extremities: edema Labs Result Diagram: 11/15/18 0424 11/15/18 0424 Results 24hrs Laboratory Tests Test 11/15/18 21:56 11/16/18 04:29 11/16/18 08:05 11/16/18 15:37 Activated 64.4 H 70.7 *H 57.0 H Partial Thromboplast Time Prothrombin Time 20.1 #H Prothrombin Time 1.6 Ratio INR International 1.70 Normalized Ratio Medications Medications Current Medications IV Flush (NS 3 ml) 3 ml PER PROTOCOL IV ; Start 11/11/18 at 21:00 Acetaminophen (Tylenol Supp) 650 mg Q6H PRN MD .PAIN 1-3 OR TEMP; Start 11/11/18 at 21:00 Alfuzosin HCl (Uroxatral) 10 mg DAILY@2100 PO Last administered on 11/15/18 21:57; Admin Dose 10 MG; Start 11/12/18 at 21:00 Ascorbic Acid (Vitamin C) 1,000 mg DAILY PO Last administered on 11/16/18 09:09; Admin Dose 1,000 MG; Start 11/12/18 at 09:00 Fluticasone Propionate (Flonase 0.05% Nasal) 1 spray DAILY NASAL ; Start 11/12/18 at 09:00 Methimazole (Tapazole) 5 mg DAILY PO Last administered on 11/16/18 09:08; Admin Dose 5 MG; Start 11/12/18 at 09:00 Albuterol (Ventolin Hfa) 2 puff Q6H PRN INH SHORTNESS OF BREATH; Start 11/12/18 at 07:00 Fluticasone/ Vilanterol (Breo Ellipta 100-25 Mcg Inh) 1 inh DAILY INH Last administered on 11/14/18 08:31; Admin Dose 1 INH; Start 11/12/18 at 09:00 Dronedarone (Multaq) 400 mg BID PO Last administered on 11/16/18 09:08; Admin Dose 400 MG; Start 11/12/18 at 09:00 Metoprolol Tartrate (Lopressor) 5 mg Q6 PRN IV ELEVATED BLOOD PRESSURE; Start 11/12/18 at 05:30 Atorvastatin Calcium (Lipitor) 40 mg DAILY@21 PO Last administered on 11/15/18 21:57; Admin Dose 40 MG; Start 11/12/18 at 21:00 Warfarin Sodium (Coumadin) 5 mg DAILY@17 PO Last administered on 11/16/18 17:00; Admin Dose 5 MG; Start 11/13/18 at 17:00 Heparin Sodium (Porcine) 250 ml @ 900 mls/hr PER PROTOCOL IV Last administered on 11/16/18 17:05; Admin Dose 6.5 MLS/HR; Start 11/13/18 at 21:00 Heparin Sodium (Porcine) (Heparin (1000 Units/ml)) 4,000 unit PER PROTOCOL PRN IV aPTT<47; Start 11/13/18 at 21:00 Furosemide (Lasix) 40 mg DAILY PO Last administered on 11/16/18at 09:09; Admin Dose 40 MG; Start 11/14/18 at 10:00 Spironolactone (Aldactone) 12.5 mg DAILY PO Last administered on 11/16/18 09:09; Admin Dose 12.5 MG; Start 11/14/18 at 10:00 Krzysztof Akins DO Nov 16, 2018 19:39
[2018-11-16] MEDS: ALFUZOSIN (SR) 10 MG TAB PO SCH (21:08)
[2018-11-16] MEDS: ATORVASTATIN 40 MG TAB PO SCH (21:08)
[2018-11-17] VITALS (22 sets, daily range): BP systolic 101–144; BP diastolic 62–108; PULSE 70–105; RESP 15–28
[2018-11-17] MEDS: DRONEDARONE HYDROCHLORIDE 400 MG TAB PO SCH ×2 (08:40→23:13)
[2018-11-17] MEDS: METHIMAZOLE 5 MG TAB PO SCH (08:41)
[2018-11-17] MEDS: FUROSEMIDE 20 MG TAB PO SCH (08:41)
[2018-11-17] MEDS: ASCORBIC ACID 500 MG TAB PO SCH (08:42)
[2018-11-17] MEDS: SPIRONOLACTONE 25 MG TAB PO SCH (08:42)
[2018-11-17] MEDS: FLUTICASONE/VILANTEROL 100-25 INH SCH (08:42)
[2018-11-17] MEDS: ALBUTEROL HFA 8 GM INHALER INH PRN ×2 (08:43→20:19)
[2018-11-17] MEDS: FLUTICASONE 0.05% 16 GM NAS SPRAY NASAL SCH (08:44)
--- NOTE | 2018-11-17 10:31 | PDOCDIS ---
Discharge Instructions CONDITION [id number] Patient Condition: [id number] Stable RADHA SANCHEZ Nov 17, 2018 10:31
--- NOTE | 2018-11-17 10:36 | DS ---
Date/Time of Note Date/Time of Note DATE: 11/17/18 TIME: 10:32 Discharge Summary Admission/Discharge Info Admit Date/Time Nov 11, 2018 at 19:26 Discharge Date/Time Discharge Diagnosis 1. Acute ischemic stroke with right sided numbness: Slowly improving, neurology on the case 2. Acute encephalopathy: due to stroke, improved 3. Chronic atrial fibrillation, controlled rate -Monitor, continue heparin and Coumadin for the thrombus in the left apical area 4. HTN- stable 5. CAD, Ischemic cardiomyopathy with h/o CHF with LVEF 40%-stable 6. History of ICD placement 7. High likely LV apical thrombus on echo: Now on Coumadin 8. Dyslipidemia Patient Condition: Stable Procedures Head CT: IMPRESSION: 1. Two lacunar infarctions of undetermined age measuring up to approximately 5- 6 mm at the anterior basal ganglia. 2. No hemorrhage, hydrocephalus, or midline shift. 3. Mild to moderate age related microvascular change. 4. A call report of the findings was made to Jt Medina MD on 11/11/2018 at 5:40 PM. Hx of Present Illness 83-year-old male with a past medical history of hypertension, hyperlipidemia, coronary artery disease, CHF, atrial fibrillation on Plavix and Eliquis, previous episodes of near syncope, who is now presenting with altered mentation and question of right-sided numbness beginning at 4 PM today, approximately 1 to 1-1/2 hours prior to arrival to the emergency department. The patient was reportedly normal this morning and this afternoon. He walked to the restroom, but he was in there for a long time. When the family went to assess him, the patient was standing there against the wall and staring and seemed confused. The patient was slow to respond to questions and was having difficulty walking. At that time, an ambulance was called. When the patient arrived emergency department he is alert and is alert oriented to person only. Patient had a CT of the head performed. Which did show signs of infarct however this was thought to be old after seen by the telemetry neurologist. Patient also was not given aspirin as the patient was noted to have a severe allergy. The telemetry neurologist did not see any focality on examination and given the presentation he did not team that the patient was a candidate for TPA. Upon my examination the patient at the bedside he did appear slightly confused, however he was alert and oriented x3. He did have a son with him at the bedside who did state that he does appear slow with his speech. The son does not report any recent changes in the patient's medications. Hospital Course Patient was admitted and found with acute stroke. He was seen by neurology and cardiology teams during this hospital stay.it was thought the patient's ischemic stroke was thought to be secondary to his history of atrial fibrillation, along with poor compliance with anticoagulation prior to admission. The echocardiogram also showed a high likelihood left ventricular apical thrombus. While being treated for the ischemic stroke, patient was also placed on both heparin drip and Coumadin until the INR became therapeutic, and this was switched to Coumadin. Patient worked with therapy teams including physical therapy team, able to tolerate diet, vital signs are stable as well. Patient has been accepted to acute rehab facility where he will continue to require strength improvement. He will be discharged later today in improved condition. Per cardiology team they recommend outpatient repeat echocardiogram with Definity or other such contrast study to further evaluate left ventricular apex. See printed medicine reconciliation sheet for full list of discharge medications. Home Meds Reported Medications Alfuzosin Hcl* (Alfuzosin Hcl*) 10 Mg Tab.er.24h, 10 MG PO DAILY, #30 TAB.SA 11/11/18 Budesonide-Formoterol Fumarate* (Symbicort*) 80-4.5 Mcg Hfa.aer.ad, 2 PUFF INHALATION BID, BOTTLE 11/11/18 Albuterol Sulfate (Proair Respiclick) 90 Mcg Aer.pow.ba, 2 PUFFS INHALATION Q6 PRN for SHORTNESS OF BREATH, #1 BOTTLE 11/11/18 Carvedilol* (Carvedilol*) 25 Mg Tablet, 25 MG PO BID, #60 TAB 11/11/18 Clopidogrel Bisulfate* (Clopidogrel Bisulfate*) 75 Mg Tablet, 75 MG PO DAILY, #30 TAB 11/11/18 Dronedarone Hydrochloride* (Multaq*) 400 Mg Tablet, 400 MG PO BID, TAB 11/11/18 Apixaban* (Eliquis*) 5 Mg Tablet, 5 MG PO BID, TAB 11/11/18 Fluticasone Propionate* (Fluticasone Propionate* Nasal) 50 Mcg/[place] - 16 Gm [place].susp, 1 SPRAY NASAL DAILY, #1 BOTTLE TO EACH NOSTRIL 11/11/18 Furosemide* (Furosemide*) 20 Mg Tablet, 40 MG PO DAILY, #60 TAB 11/11/18 Hydrocortisone* Topical (Hydrocortisone* Topical) 2.5%-28.3 Gm Cream..g., 1 APPLIC TOP BID, TUB 11/11/18 Losartan Potassium* (Losartan Potassium*) 25 Mg Tablet, 25 MG PO BID, TAB 11/11/18 Ascorbic Acid (Vitamin C) 500 Mg Tab, 1000 MG PO DAILY, TAB 11/11/18 Spironolactone* (Aldactone*) 25 Mg Tablet, 12.5 MG PO DAILY, #30 TAB 11/11/18 Rosuvastatin Calcium* (Crestor*) 10 Mg Tablet, 10 MG PO QHS, #30 TAB 11/11/18 Nitroglycerin* (Nitroglycerin* SL) 0.4 Mg Tab.subl, 0.4 MG SL Q5MIN PRN for CHEST PAIN, BOTTLE 11/11/18 Methimazole* (Methimazole*) 5 Mg Tablet, 5 MG PO DAILY, TAB 11/11/18 Discontinued Reported Medications Alfuzosin Hcl* (Alfuzosin Hcl*) 10 Mg Tab.er.24h, 10 MG PO DAILY, #30 TAB.SA 08/28/17 Sertraline Hcl* (Zoloft*) 25 Mg Tablet, 25 MG PO DAILY, #30 TAB 08/28/17 Tiotropium [place]* (Spiriva*) 18 Mcg Cap.w.dev, 1 CAP INHALATION DAILY, #30 CAP 08/28/17 Budesonide-Formoterol Fumarate* (Symbicort*) 80-4.5 Mcg Hfa.aer.ad, 2 PUFF INHALATION BID, BOTTLE 08/28/17 Methimazole* (Methimazole*) 10 Mg Tablet, 10 MG PO DAILY, TAB 08/28/17 Finasteride* (Finasteride*) 5 Mg Tablet, 5 MG PO DAILY, TAB 08/28/17 Potassium Chloride* (K-Dur*) 20 Meq Tab.prt.sr, 20 MEQ PO DAILY, TAB.SA 08/28/17 Dronedarone Hydrochloride* (Multaq*) 400 Mg Tablet, 400 MG PO BID, TAB 08/28/17 Furosemide* (Furosemide*) 40 Mg Tablet, 40 MG PO DAILY, TAB 08/28/17 Carvedilol* (Carvedilol*) 25 Mg Tablet, 25 MG PO BID, #60 TAB 08/28/17 Valsartan* (Diovan*) 80 Mg Tablet, 80 MG PO DAILY, TAB 08/28/17 Rosuvastatin Calcium* (Crestor*) 10 Mg Tablet, 10 MG PO QHS, #30 TAB 08/28/17 Isosorbide Mononitrate* (Isosorbide Mononitrate*) 60 Mg Tab.er.24h, 60 MG PO DAILY, TAB 08/28/17 Apixaban* (Eliquis*) 5 Mg Tablet, 5 MG PO BID, TAB 08/28/17 Primary Care Provider Not On Staff Doctor Time spent on discharge: > 30 minutes Pending Labs Laboratory Tests Test 11/16/18 15:37 11/16/18 22:45 11/17/18 05:26 11/17/18 05:27 Activated 57.0 73.7 89.8 Partial Thrombo Sec (23.0-35.0) Sec (23.0-35.0 Sec (23.0-35.0 plast Time ) ) Prothrombin 27.2 Time Sec (11.9-14.9 ) Prothrombin 2.1 Time Ratio INR 2.52 International Normalized Rati o White Blood 6.2 Count 10^3/ul (4.8-1 0.8) Red Blood 4.34 Count 10^6/ul (4.70- 6.10) Hemoglobin 13.7 g/dl (14.0-18. 0) Hematocrit 41.4 % (42.0-52.0) Mean 95.4 Corpuscular fl (82.0-101.0 Volume ) Mean 31.6 Corpuscular pg (29.0-33.0) Hemoglobin Mean 33.1 Corpuscular g/dl (32.0-37. Hemoglobin Conc 0) ent Red Cell 13.6 Distribution % (11.5-14.5) Width Platelet Count 175 10^3/UL (140-4 15) Mean Platelet 10.7 Volume fl (7.4-10.4) Immature 0.300 Granulocytes % % (0.001-0.429 ) Neutrophils % 52.1 % (39.0-77.0) Lymphocytes % 29.5 % (15.0-51.0) Monocytes % 14.8 % (0.0-11.0) Eosinophils % 2.2 % (0.0-7.0) Basophils % 1.1 % (0.0-2.0) Nucleated Red 0.0 Blood Cells % /100WBC (0.0-0 .0) Immature 0.020 Granulocytes # 10^3/ul (0.0-0 .031) Neutrophils # 3.2 10^3/ul (1.6-7 .5) Lymphocytes # 1.8 10^3/ul (0.8-2 .9) Monocytes # 0.9 10^3/ul (0.3-0 .9) Eosinophils # 0.1 10^3/ul (0.0-0 .5) Basophils # 0.1 10^3/ul (0.0-0 .1) Nucleated Red 0.0 Blood Cells # 10^3/ul (0.0-0 .0) Sodium Level 141 mmol/L (135-14 4) Potassium 3.9 Level mmol/L (3.5-5. 1) Chloride Level 106 mmol/L (97-110 ) Carbon Dioxide 22 Level mmol/L (21-31) Anion Gap 13 (5-13) Blood Urea 24 Nitrogen mg/dl (7-20) Creatinine 1.20 mg/dl (0.61-1. 24) Est Glomerular mL/min (>60) Filtrat Rate mL/min Glucose Level 102 mg/dl (70-220) Calcium Level 9.2 mg/dl (8.4-10. 2) RADHA SANCHEZ Nov 17, 2018 10:36
--- NOTE | 2018-11-17 13:51 | CONS ---
Assessment/Plan Assessment/Plan Assessment/Plan (Recall) 83 M c/ afib and other cerebrovascular risk factors, who presents for evaluation of transient ams w/ ? R sided numbness x 1 hr... Serial Head CTs confirmed a new posterior L MCA territory infarction.. The patient endorses noncompliance w/ eliquis at home, which is the likely underlying precipitant.. Echo is concerning for apical thrombus vs. artifact.. Now on therapeutic anticoagulation for the above.. 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 LDL 96 A1C nl UA neg P: LV thrombus management per cardiology BP control and other management and supportive care per primary PT/OT/ST as necessary Neurologically cleared for Tx to rehab Consultation Date/Type/Reason Admit Date/Time Nov 11, 2018 at 19:26 Type of Consult Neurology Reason for Consultation ams Requesting Provider: LISBET SIMMONS Date/Time of Note DATE: 11/17/18 TIME: 13:50 24 HR Interval Summary Free Text/Dictation INR at goal; Heparin d/c'd Exam/Review of Systems Exam Vitals Vital Signs Date Temp Pulse Resp B/P (MAP) Pulse Ox O2 O2 Flow FiO2 Time Delivery Rate 11/17/18 90 19 131/108 96 Room Air 12:00 (116) 11/17/18 97.9 04:00 Intake and Output 11/16/18 11/16/18 11/17/18 1515:00 23:00 07:00 IntakeIntake Total 513.50 ml 225.0 ml 48 ml BalanceBalance 513.50 ml 225.0 ml 48 ml Results Result Diagram: 11/17/18 0527 11/17/18 0527 Results 24hrs Laboratory Tests Test 11/16/18 15:37 11/16/18 22:45 11/17/18 05:26 11/17/18 05:27 Activated 57.0 H 73.7 *H 89.8 *H Partial Thrombopla st Time Prothrombin Time 27.2 #H Prothrombin Time 2.1 Ratio INR International 2.52 Normalized Ratio White Blood Count 6.2 Red Blood Count 4.34 L Hemoglobin 13.7 L Hematocrit 41.4 L Mean Corpuscular 95.4 Volume Mean Corpuscular 31.6 Hemoglobin Mean Corpuscular 33.1 Hemoglobin Concent Red Cell 13.6 Distribution Width Platelet Count 175 Mean Platelet 10.7 H Volume Immature 0.300 Granulocytes % Neutrophils % 52.1 Lymphocytes % 29.5 Monocytes % 14.8 H Eosinophils % 2.2 Basophils % 1.1 Nucleated Red 0.0 Blood Cells % Immature 0.020 Granulocytes # Neutrophils # 3.2 Lymphocytes # 1.8 Monocytes # 0.9 Eosinophils # 0.1 Basophils # 0.1 Nucleated Red 0.0 Blood Cells # Sodium Level 141 Potassium Level 3.9 Chloride Level 106 Carbon Dioxide 22 Level Anion Gap 13 Blood Urea 24 H Nitrogen Creatinine 1.20 Est Glomerular Filtrat Rate mL/min Glucose Level 102 Calcium Level 9.2 Test 11/17/18 11:14 Lab Scanned Report REFERENCE LAB Medications Medication Current Medications IV Flush (NS 3 ml) 3 ml PER PROTOCOL IV ; Start 11/11/18 at 21:00 Acetaminophen (Tylenol Supp) 650 mg Q6H PRN [place] .PAIN 1-3 OR TEMP; Start 11/11/18 at 21:00 Alfuzosin HCl (Uroxatral) 10 mg DAILY@2100 PO Last administered on 11/16/18at 21:08; Admin Dose 10 MG; Start 11/12/18 at 21:00 Ascorbic Acid (Vitamin C) 1,000 mg DAILY PO Last administered on 11/17/18 08:42; Admin Dose 1,000 MG; Start 11/12/18 at 09:00 Fluticasone Propionate (Flonase 0.05% Nasal) 1 spray DAILY NASAL Last administered on 11/17/18 08:44; Admin Dose 1 SPRAY; Start 11/12/18 at 09:00 Albuterol (Ventolin Hfa) 2 puff Q6H PRN INH SHORTNESS OF BREATH Last administered on 11/17/18 08:43; Admin Dose 2 PUFF; Start 11/12/18 at 07:00 Fluticasone/ Vilanterol (Breo Ellipta 100-25 Mcg Inh) 1 inh DAILY INH Last administered on 11/17/18 08:42; Admin Dose 1 INH; Start 11/12/18 at 09:00 Dronedarone (Multaq) 400 mg BID PO Last administered on 11/17/18 08:40; Admin Dose 400 MG; Start 11/12/18 at 09:00 Metoprolol Tartrate (Lopressor) 5 mg Q6 PRN IV ELEVATED BLOOD PRESSURE; Start 11/12/18 at 05:30 Atorvastatin Calcium (Lipitor) 40 mg DAILY@21 PO Last administered on 11/16/18at 21:08; Admin Dose 40 MG; Start 11/12/18 at 21:00 Warfarin Sodium (Coumadin) 5 mg DAILY@17 PO Last administered on 11/16/18at 17: 00; Admin Dose 5 MG; Start 11/13/18 at 17:00 Furosemide (Lasix) 40 mg DAILY PO Last administered on 11/17/18at 08:41; Admin Dose 40 MG; Start 11/14/18 at 10:00 Spironolactone (Aldactone) 12.5 mg DAILY PO Last administered on 11/17/18 08:42; Admin Dose 12.5 MG; Start 11/14/18 at 10:00 KATHARINE CREWS Nov 17, 2018 13:50
[2018-11-17] MEDS ORDERED: FENTAnyl (DRIP) 1000 mcg/100mL 100 ML IV ONE (14:09)
--- NOTE | 2018-11-17 15:47 | CONS ---
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 Echocardiogram with high likelihood of left apical thrombus INR therapeutic, continue Coumadin Would recommend outpatient repeat echocardiogram with Definity or other such contrast study to further evaluate left ventricular apex Okay for rehab Consultation Date/Type/Reason Admit Date/Time Nov 11, 2018 at 19:26 Initial Consult Date Type of Consult Cardiology Requesting Provider: LISBET SIMMONS Date/Time of Note DATE: 11/17/18 TIME: 15:46 24 HR Interval Summary Free Text/Dictation No shortness of breath, palpitations, chest pain Exam/Review of Systems Vital Signs Vitals Vital Signs Date Temp Pulse Resp B/P (MAP) Pulse Ox O2 O2 Flow FiO2 Time Delivery Rate 11/17/18 91 21 116/72 96 Room Air 14:00 (87) 11/17/18 97.9 04:00 Intake and Output 11/16/18 11/16/18 11/17/18 1515:00 23:00 07:00 IntakeIntake Total 513.50 ml 225.0 ml 54 ml BalanceBalance 513.50 ml 225.0 ml 54 ml Exam Constitutional: alert, oriented Head: normocephalic Respiratory: other (Coarse breath sounds bilaterally, no wheezing) Cardiovascular: irregular rhythm, other (S1-S2 heard) Gastrointestinal: soft, non-tender, bowel sounds Extremities: other (No) Labs Result Diagram: 11/17/18 0527 11/17/18 0527 Results 24hrs Laboratory Tests Test 11/16/18 22:45 11/17/18 05:26 11/17/18 05:27 11/17/18 11:14 Activated 73.7 *H 89.8 *H Partial Thrombopla st Time Prothrombin Time 27.2 #H Prothrombin Time 2.1 Ratio INR International 2.52 Normalized Ratio White Blood Count 6.2 Red Blood Count 4.34 L Hemoglobin 13.7 L Hematocrit 41.4 L Mean Corpuscular 95.4 Volume Mean Corpuscular 31.6 Hemoglobin Mean Corpuscular 33.1 Hemoglobin Concent Red Cell 13.6 Distribution Width Platelet Count 175 Mean Platelet 10.7 H Volume Immature 0.300 Granulocytes % Neutrophils % 52.1 Lymphocytes % 29.5 Monocytes % 14.8 H Eosinophils % 2.2 Basophils % 1.1 Nucleated Red 0.0 Blood Cells % Immature 0.020 Granulocytes # Neutrophils # 3.2 Lymphocytes # 1.8 Monocytes # 0.9 Eosinophils # 0.1 Basophils # 0.1 Nucleated Red 0.0 Blood Cells # Sodium Level 141 Potassium Level 3.9 Chloride Level 106 Carbon Dioxide 22 Level Anion Gap 13 Blood Urea 24 H Nitrogen Creatinine 1.20 Est Glomerular Filtrat Rate mL/min Glucose Level 102 Calcium Level 9.2 Lab Scanned Report REFERENCE LAB Medications Medications Current Medications IV Flush (NS 3 ml) 3 ml PER PROTOCOL IV ; Start 11/11/18 at 21:00 Acetaminophen (Tylenol Supp) 650 mg Q6H PRN [place] .PAIN 1-3 OR TEMP; Start 11/11/18 at 21:00 Alfuzosin HCl (Uroxatral) 10 mg DAILY@2100 PO Last administered on 11/16/18 21:08; Admin Dose 10 MG; Start 11/12/18 at 21:00 Ascorbic Acid (Vitamin C) 1,000 mg DAILY PO Last administered on 11/17/18 08:42; Admin Dose 1,000 MG; Start 11/12/18 at 09:00 Fluticasone Propionate (Flonase 0.05% Nasal) 1 spray DAILY NASAL Last administered on 11/17/18 08:44; Admin Dose 1 SPRAY; Start 11/12/18 at 09:00 Albuterol (Ventolin Hfa) 2 puff Q6H PRN INH SHORTNESS OF BREATH Last administered on 11/17/18 08:43; Admin Dose 2 PUFF; Start 11/12/18 at 07:00 Fluticasone/ Vilanterol (Breo Ellipta 100-25 Mcg Inh) 1 inh DAILY INH Last administered on 11/17/18 08:42; Admin Dose 1 INH; Start 11/12/18 at 09:00 Dronedarone (Multaq) 400 mg BID PO Last administered on 11/17/18 08:40; Admin Dose 400 MG; Start 11/12/18 at 09:00 Metoprolol Tartrate (Lopressor) 5 mg Q6 PRN IV ELEVATED BLOOD PRESSURE; Start 11/12/18 at 05:30 Atorvastatin Calcium (Lipitor) 40 mg DAILY@21 PO Last administered on 11/16/18at 21:08; Admin Dose 40 MG; Start 11/12/18 at 21:00 Warfarin Sodium (Coumadin) 5 mg DAILY@17 PO Last administered on 11/16/18at 17:00; Admin Dose 5 MG; Start 11/13/18 at 17:00 Furosemide (Lasix) 40 mg DAILY PO Last administered on 11/17/18at 08:41; Admin Dose 40 MG; Start 11/14/18 at 10:00 Spironolactone (Aldactone) 12.5 mg DAILY PO Last administered on 11/17/18at 08:42; Admin Dose 12.5 MG; Start 11/14/18 at 10:00 Krzysztof Akins DO Nov 17, 2018 15:47
[2018-11-17] MEDS: WARFARIN 5 MG TAB PO SCH (18:48)
[2018-11-17] MEDS: ALFUZOSIN (SR) 10 MG TAB PO SCH (21:00)
[2018-11-17] MEDS: ATORVASTATIN 40 MG TAB PO SCH (23:13)
[2018-11-18 04:32] VITALS: BP 127/78; PULSE 72; RESP 18
[2018-11-18 07:39] VITALS: BP 120/72; PULSE 79; RESP 20
[2018-11-18] MEDS: SPIRONOLACTONE 25 MG TAB PO SCH (08:15)
[2018-11-18] MEDS: FLUTICASONE/VILANTEROL 100-25 INH SCH (08:15)
[2018-11-18] MEDS: FLUTICASONE 0.05% 16 GM NAS SPRAY NASAL SCH (08:15)
[2018-11-18] MEDS: DRONEDARONE HYDROCHLORIDE 400 MG TAB PO SCH ×2 (08:16→21:11)
[2018-11-18] MEDS: FUROSEMIDE 20 MG TAB PO SCH (08:19)
[2018-11-18] MEDS: ASCORBIC ACID 500 MG TAB PO SCH (08:19)
--- NOTE | 2018-11-18 09:38 | DS ---
Date/Time of Note Date/Time of Note DATE: 11/18/18 TIME: 09:37 Discharge Summary Admission/Discharge Info Admit Date/Time Nov 11, 2018 at 19:26 Discharge Date/Time Discharge Diagnosis 1. Acute ischemic stroke with right sided numbness: Slowly improving, neurology on the case 2. Acute encephalopathy: due to stroke, improved 3. Chronic atrial fibrillation, controlled rate -Monitor, continue heparin and Coumadin for the thrombus in the left apical area 4. HTN- stable 5. CAD, Ischemic cardiomyopathy with h/o CHF with LVEF 40%-stable 6. History of ICD placement 7. High likely LV apical thrombus on echo: Now on Coumadin 8. Dyslipidemia Patient Condition: Stable Hx of Present Illness 83-year-old male with a past medical history of hypertension, hyperlipidemia, coronary artery disease, CHF, atrial fibrillation on Plavix and Eliquis, previous episodes of near syncope, who is now presenting with altered mentation and question of right-sided numbness beginning at 4 PM today, approximately 1 to 1-1/2 hours prior to arrival to the emergency department. The patient was reportedly normal this morning and this afternoon. He walked to the restroom, but he was in there for a long time. When the family went to assess him, the patient was standing there against the wall and staring and seemed confused. The patient was slow to respond to questions and was having difficulty walking. At that time, an ambulance was called. When the patient arrived emergency depar tment he is alert and is alert oriented to person only. Patient had a CT of the head performed. Which did show signs of infarct however this was thought to be old after seen by the telemetry neurologist. Patient also was not given aspirin as the patient was noted to have a severe allergy. The telemetry neurologist did not see any focality on examination and given the presentation he did not team that the patient was a candidate for TPA. Upon my examination the patient at the bedside he did appear slightly confused, however he was alert and oriented x3. He did have a son with him at the bedside who did state that he does appear slow with his speech. The son does not report any recent changes in the patient's medications. Hospital Course Patient was admitted and found with acute stroke. He was seen by neurology and cardiology teams during this hospital stay.it was thought the patient's ischemic stroke was thought to be secondary to his history of atrial fibrillation, along with poor compliance with anticoagulation prior to admission. The echocardiogram also showed a high likelihood left ventricular apical thrombus. While being treated for the ischemic stroke, patient was also placed on both heparin drip and Coumadin until the INR became therapeutic, and this was switched to Coumadin. Patient worked with therapy teams including physical therapy team, able to tolerate diet, vital signs are stable as well. Patient has been accepted to acute rehab facility where he will continue to require strength improvement. Patient stayed the night of November 17, 2018 in the hospital because there was no bed apparently available at the acute rehab facility, but today there is a bed available and patient will be discharged there later today in improved condition. Per cardiology team they recommend outpatient repeat echocardiogram with Definity or other such contrast study to further evaluate left ventricular apex. See printed medicine reconciliation sheet for full list of discharge medications. Home Meds Reported Medications Alfuzosin Hcl* (Alfuzosin Hcl*) 10 Mg Tab.er.24h, 10 MG PO DAILY, #30 TAB.SA 11/11/18 Budesonide-Formoterol Fumarate* (Symbicort*) 80-4.5 Mcg Hfa.aer.ad, 2 PUFF INHALATION BID, BOTTLE 11/11/18 Albuterol Sulfate (Proair Respiclick) 90 Mcg Aer.pow.ba, 2 PUFFS INHALATION Q6 PRN for SHORTNESS OF BREATH, #1 BOTTLE 11/11/18 Carvedilol* (Carvedilol*) 25 Mg Tablet, 25 MG PO BID, #60 TAB 11/11/18 Clopidogrel Bisulfate* (Clopidogrel Bisulfate*) 75 Mg Tablet, 75 MG PO DAILY, #30 TAB 11/11/18 Dronedarone Hydrochloride* (Multaq*) 400 Mg Tablet, 400 MG PO BID, TAB 11/11/18 Apixaban* (Eliquis*) 5 Mg Tablet, 5 MG PO BID, TAB 11/11/18 Fluticasone Propionate* (Fluticasone Propionate* Nasal) 50 Mcg/[place] - 16 Gm [place].susp, 1 SPRAY NASAL DAILY, #1 BOTTLE TO EACH NOSTRIL 11/11/18 Furosemide* (Furosemide*) 20 Mg Tablet, 40 MG PO DAILY, #60 TAB 11/11/18 Hydrocortisone* Topical (Hydrocortisone* Topical) 2.5%-28.3 Gm Cream..g., 1 APPLIC TOP BID, TUB 7/10/19 Losartan Potassium* (Losartan Potassium*) 25 Mg Tablet, 25 MG PO BID, TAB 11/11/18 Ascorbic Acid (Vitamin C) 500 Mg Tab, 1000 MG PO DAILY, TAB 11/11/18 Spironolactone* (Aldactone*) 25 Mg Tablet, 12.5 MG PO DAILY, #30 TAB 11/11/18 Rosuvastatin Calcium* (Crestor*) 10 Mg Tablet, 10 MG PO QHS, #30 TAB 11/11/18 Nitroglycerin* (Nitroglycerin* SL) 0.4 Mg Tab.subl, 0.4 MG SL Q5MIN PRN for CHEST PAIN, BOTTLE 11/11/18 Methimazole* (Methimazole*) 5 Mg Tablet, 5 MG PO DAILY, TAB 11/11/18 Discontinued Reported Medications Alfuzosin Hcl* (Alfuzosin Hcl*) 10 Mg Tab.er.24h, 10 MG PO DAILY, #30 TAB.SA 08/28/17 Sertraline Hcl* (Zoloft*) 25 Mg Tablet, 25 MG PO DAILY, #30 TAB 08/28/17 Tiotropium [place]* (Spiriva*) 18 Mcg Cap.w.dev, 1 CAP INHALATION DAILY, #30 CAP 08/28/17 Budesonide-Formoterol Fumarate* (Symbicort*) 80-4.5 Mcg Hfa.aer.ad, 2 PUFF INHALATION BID, BOTTLE 08/28/17 Methimazole* (Methimazole*) 10 Mg Tablet, 10 MG PO DAILY, TAB 08/28/17 Finasteride* (Finasteride*) 5 Mg Tablet, 5 MG PO DAILY, TAB 08/28/17 Potassium Chloride* (K-Dur*) 20 Meq Tab.prt.sr, 20 MEQ PO DAILY, TAB.SA 08/28/17 Dronedarone Hydrochloride* (Multaq*) 400 Mg Tablet, 400 MG PO BID, TAB 08/28/17 Furosemide* (Furosemide*) 40 Mg Tablet, 40 MG PO DAILY, TAB 08/28/17 Carvedilol* (Carvedilol*) 25 Mg Tablet, 25 MG PO BID, #60 TAB 08/28/17 Valsartan* (Diovan*) 80 Mg Tablet, 80 MG PO DAILY, TAB 08/28/17 Rosuvastatin Calcium* (Crestor*) 10 Mg Tablet, 10 MG PO QHS, #30 TAB 08/28/17 Isosorbide Mononitrate* (Isosorbide Mononitrate*) 60 Mg Tab.er.24h, 60 MG PO DAILY, TAB 08/28/17 Apixaban* (Eliquis*) 5 Mg Tablet, 5 MG PO BID, TAB 08/28/17 Primary Care Provider Not On Staff Doctor Time spent on discharge: > 30 minutes Pending Labs Laboratory Tests Test 11/17/18 11:14 11/18/18 06:32 Lab Scanned Report REFERENCE LAB [id number] Prothrombin Time 30.4 Sec (11.9-14.9) Prothrombin Time Ratio 2.4 INR International Normalized Ratio 2.90 RADHA SANCHEZ Nov 18, 2018 09:37
[2018-11-18 11:17] VITALS: BP 113/71; PULSE 89; RESP 20
[2018-11-18 15:45] VITALS: BP 129/70; PULSE 84; RESP 20
[2018-11-18] MEDS: WARFARIN 5 MG TAB PO SCH (17:03)
--- NOTE | 2018-11-18 17:23 | CONS ---
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 Echocardiogram with high likelihood of left apical thrombus Coumadin as per INR Would recommend outpatient repeat echocardiogram with Definity or other such contrast study to further evaluate left ventricular apex Okay for rehab Consultation Date/Type/Reason Admit Date/Time Nov 11, 2018 at 19:26 Initial Consult Date Type of Consult Cardiology Requesting Provider: LISBET SIMMONS Date/Time of Note DATE: 11/18/18 TIME: 17:22 24 HR Interval Summary Free Text/Dictation No shortness of breath, chest pain or palpitations Exam/Review of Systems Vital Signs Vitals Vital Signs Date Temp Pulse Resp B/P (MAP) Pulse Ox O2 O2 Flow FiO2 Time Delivery Rate 11/18/18 97.9 84 20 129/70 98 15:45 (89) 11/18/18 Room Air 04:32 Intake and Output 11/17/18 11/17/18 11/18/18 1515:00 23:00 07:00 IntakeIntake Total 327.00 ml 300 ml BalanceBalance 327.00 ml 300 ml Exam Constitutional: alert, oriented Head: normocephalic Respiratory: other (Coarse breath sounds bilaterally, no wheezing) Cardiovascular: regular rate and rhythm (S1-S2 heard) Gastrointestinal: soft, non-tender, bowel sounds Extremities: edema (Trace) Labs Result Diagram: 11/17/18 0527 11/17/18 0527 Results 24hrs Laboratory Tests Test 11/18/18 06:32 Prothrombin Time 30.4 H Prothrombin Time Ratio 2.4 INR International Normalized Ratio 2.90 Medications Medications Current Medications IV Flush (NS 3 ml) 3 ml PER PROTOCOL IV ; Start 11/11/18 at 21:00 Acetaminophen (Tylenol Supp) 650 mg Q6H PRN NV .PAIN 1-3 OR TEMP; Start 11/11/18 at 21:00 Alfuzosin HCl (Uroxatral) 10 mg DAILY@2100 PO Last administered on 11/16/18at 21:08; Admin Dose 10 MG; Start 11/12/18 at 21:00 Ascorbic Acid (Vitamin C) 1,000 mg DAILY PO Last administered on 11/18/18 08: 19; Admin Dose 1,000 MG; Start 11/12/18 at 09:00 Fluticasone Propionate (Flonase 0.05% Nasal) 1 spray DAILY NASAL Last administered on 11/18/18 08:15; Admin Dose 1 SPRAY; Start 11/12/18 at 09:00 Albuterol (Ventolin Hfa) 2 puff Q6H PRN INH SHORTNESS OF BREATH; Start 11/12/18 at 07:00 Fluticasone/ Vilanterol (Breo Ellipta 100-25 Mcg Inh) 1 inh DAILY INH Last administered on 11/18/18at 08:15; Admin Dose 1 INH; Start 11/12/18 at 09:00 Dronedarone (Multaq) 400 mg BID PO Last administered on 11/18/18at 08:16; Admin Dose 400 MG; Start 11/12/18 at 09:00 Metoprolol Tartrate (Lopressor) 5 mg Q6 PRN IV ELEVATED BLOOD PRESSURE; Start 11/12/18 at 05:30 Atorvastatin Calcium (Lipitor) 40 mg DAILY@21 PO Last administered on 11/17/18 23:13; Admin Dose 40 MG; Start 11/12/18 at 21:00 Warfarin Sodium (Coumadin) 5 mg DAILY@17 PO Last administered on 11/18/18at 17:03; Admin Dose 5 MG; Start 11/13/18 at 17:00 Furosemide (Lasix) 40 mg DAILY PO Last administered on 11/18/18 08:19; Admin Dose 40 MG; Start 11/14/18 at 10:00 Spironolactone (Aldactone) 12.5 mg DAILY PO Last administered on 11/18/18 08: 15; Admin Dose 12.5 MG; Start 11/14/18 at 10:00 Krzysztof Akins DO Nov 18, 2018 17:23
[2018-11-18 20:02] VITALS: BP 124/79; PULSE 65; RESP 18
[2018-11-18] MEDS: ALFUZOSIN (SR) 10 MG TAB PO SCH (21:11)
[2018-11-18] MEDS: ATORVASTATIN 40 MG TAB PO SCH (21:11)
== END 2018-11-18 21:45 | DRG 64 ==
LOC: E/R 17:09 → 6WM 19:26 → CANRESERV 20:06 → 6WM 11-12 01:07 → ICU 11-13 20:23 → TEL 11-17 20:38
PROVIDERS: ADMIT Family Medicine; ATTEND Hospitalist
DX: I63.9 Cerebral infarction, unspecified (principal); G92 Toxic encephalopathy; G81.91 Hemiplegia, unspecified affecting right dominant side; E72.20 Disorder of urea cycle metabolism, unspecified; I11.0 Hypertensive heart disease with heart failure; I50.9 Heart failure, unspecified; I48.2 Chronic atrial fibrillation; I25.5 Ischemic cardiomyopathy; E78.5 Hyperlipidemia, unspecified; I25.10 Atherosclerotic heart disease of native coronary artery without angina pectoris; Z95.810 Presence of automatic (implantable) cardiac defibrillator; R09.02 Hypoxemia; Z79.02 Long term (current) use of antithrombotics/antiplatelets; Z79.01 Long term (current) use of anticoagulants; Z95.1 Presence of aortocoronary bypass graft; I51.3 Intracardiac thrombosis, not elsewhere classified
CPT/HCPCS: 36415; 36600; 70450; 70470; 70496; 70498; 71045; 76705; 80048; 80053; 80061; 80307; 81003; 82140; 82306; 82550; 82553; 82803; 82962; 83036; 83735; 84439; 84443; 84484; 85025; 85610; 85730; 86704; 86706; 86708; 86709; 86803; 87081; 87340; 92610; 93005; 93306; 93880; 97110; 97116; 97163; 97164; 97165; 97168; 97530; 97535; J1644; J3010; J7040; J7042; Q9967

== ENCOUNTER 2018-11-18 17:01 | Inpatient (IN) | payer MEDICARE, OTHER ==
[~2018-11-18] VITALS: Ht 160 cm; Wt 74.7 kg
[~2018-11-18 17:01] MED LIST changes: +ALBU90AE INHALATION; +ASC500 PO; +CLOP75TA19 PO; -FINA5TAB4 PO; +FLUT16SP17 NASAL; +FURO20TA3 PO; -FURO40TA4 PO; +HC30CR25 TOP; -ISOS60TA PO; +LOSA25TA12 PO; +METH-493 PO; -METH10TA5 PO; +NITR0.4T32 SL; -POTA20TA15 PO; -SERT25TA PO; +SPIR25TA PO; -TIOT18CA INHALATION; -VALS80TA2 PO
[2018-11-18 22:10] VITALS: BP 152/82; PULSE 84; RESP 18
[2018-11-18 22:30] VITALS: BP 152/82; PULSE 89; RESP 18
[2018-11-18] MEDS ORDERED: PENDING SANTYL ORDER FOR WOUND CARE XX PRN (23:00)
[2018-11-18] MEDS ORDERED: MAGNESIUM HYDROXIDE 30ML CUP PO PRN (23:00)
[2018-11-18] MEDS ORDERED: LACTULOSE 30ML CUP PO PRN (23:00)
[2018-11-18] MEDS ORDERED: BISACODYL 10 MG SUPP PR PRN (23:00)
[2018-11-18] MEDS ORDERED: ACETAMINOPHEN 325 MG TAB PO PRN (23:00)
[2018-11-18] MEDS ORDERED: ALBUTEROL HFA 8 GM INHALER INH PRN (23:30)
[2018-11-19 02:00] VITALS: BP 109/70; PULSE 73; RESP 18
[2018-11-19 06:36] VITALS: Ht 160 cm; Wt 74.7 kg
[2018-11-19] MEDS ORDERED: DRONEDARONE HYDROCHLORIDE 400 MG TAB PO SCH (07:35)
[2018-11-19 08:00] VITALS: BP 115/70; PULSE 70; RESP 19
[2018-11-19] MEDS ORDERED: DOCUSATE SODIUM 100 MG CAP PO SCH (09:00)
[2018-11-19] MEDS ORDERED: ASCORBIC ACID 500 MG TAB PO SCH (09:00)
[2018-11-19] MEDS ORDERED: FUROSEMIDE 40 MG TAB PO SCH (09:00)
[2018-11-19] MEDS ORDERED: SPIRONOLACTONE 25 MG TAB PO SCH (09:00)
[2018-11-19] MEDS ORDERED: FLUTICASONE 0.05% 16 GM NAS SPRAY NASAL SCH (09:00)
[2018-11-19] MEDS ORDERED: FLUTICASONE/VILANTEROL 100-25 INH SCH (09:00)
--- NOTE | 2018-11-19 12:08 | CONS ---
DATE OF ADMISSION: 11/18/2018 DATE OF CONSULTATION: 11/19/2018 REHABILITATION POST ADMISSION PHYSICIAN EVALUATION REHABILITATION IMPAIRMENT CATEGORY: Left infarct cerebrovascular accident with right-sided weakness. ACTIVE COMORBIDITIES: 1. Hypertension. 2. Coronary artery disease. 3. LV apical thrombus, on anticoagulation. 4. Hyperlipidemia. 5. Congestive heart failure. 6. Atrial fibrillation. 7. Impairments in self-care, mobility and cognition. HISTORY OF PRESENT ILLNESS: The patient is an 83-year-old gentleman with a history of hypertension, coronary artery disease, hyperlipidemia and CHF, who was admitted with confusion, and right-sided weakness. A head CT was performed and was negative for bleed. The patient was noted to have evidence of infarct. He was followed closely by neurology, and started on appropriate anticoagulation. The patient has been cleared to transfer to the rehabilitation unit for comprehensive interdisciplinary rehab care. FUNCTIONAL HISTORY: Prior to recent events, he was independent in self-care tasks and mobility. Currently, he requires a supervised standby assist for self-care and mobility tasks. This is a significant improvement from the preadmission screen, where he was noted to be minimal to moderate assist. FAMILY AND SOCIAL HISTORY: Patient has supportive family who would like to have him return home. They report they will be able to provide 24 hour supervision. PAST MEDICAL HISTORY: 1. Hypertension. 2. Hyperlipidemia. 3. Ischemic cardiomyopathy. 4. History of ICD placement at [facility]. 5. History of atrial fibrillation. CURRENT MEDICATIONS: 1. Tylenol p.r.n. 2. Albuterol inhaler. 3. Alfuzosin 10 mg p.o. daily. 4. Vitamin C. 5. Lipitor 40 mg p.o. daily. 6. Multaq 400 mg p.o. b.i.d. 7. Flonase. 8. Reveal Ellipta. 9. Lasix 40 mg p.o. daily. 10. Coumadin 5 mg p.o. daily. 11. Aldactone 12.5 mg p.o. daily. ALLERGIES: 1. ASPIRIN. 2. IBUPROFEN. PHYSICAL EXAMINATION: VITAL SIGNS: The patient is currently afebrile with stable vital signs. HEENT: Extraocular motions are intact. Oropharynx clear. NECK: Supple. LUNGS: Clear anteriorly. CARDIAC: S1, S2. ABDOMEN: Soft, nontender, positive bowel sounds. NEUROLOGIC: He is awake and alert. He is oriented to person and hospital. He will follow simple 1-step commands. He demonstrates antigravity strength in the right upper and lower extremity. He demonstrates 5+ strength in the left upper and lower extremity. PLAN: The patient has been admitted for comprehensive interdisciplinary acute rehab and is anticipated to tolerate 3 hours of daily therapy in divided doses for at least 5/7 days a week. The treatment plan was reviewed with the patient and the family now reports given his significant improvement that they would like to have him return home. They report they will be able to provide 24-hour assistance upon discharge focus has been 1. Physical therapy to focus on caregiver training for bed mobility, transfers, and household ambulation in addition to stair mobility. 2. Occupational therapy for caregiver training to focus on hygiene, grooming, dressing, bathing, and toileting activities. 3. Speech therapy for full cognitive assessment and family and caregiver training. 4. Rehabilitation nursing for carryover of therapeutic interventions, the goal of continent of bowel and bladder, and the patient and family education with regards to the aforementioned issues. REHABILITATION BARRIER: Cognition. INTERVENTION FOR BARRIER: Speech therapy for full cognitive assessment and retraining. ESTIMATED LENGTH OF STAY: Per patient's family's request, given the significant improvement since the preadmission screen, the patient is being discharged home with family, per family's request. We will arrange for home health physical therapy and occupational therapy. Dictated By: EUSEBIO NINO/JESSICA Conf#: [id number] DID#: [id number]
[2018-11-19] MEDS ORDERED: WARFARIN 5 MG TAB PO SCH (17:00)
[2018-11-19] MEDS ORDERED: ATORVASTATIN 40 MG TAB PO SCH (21:00)
[2018-11-19] MEDS ORDERED: ALFUZOSIN (SR) 10 MG TAB PO SCH (21:00)
[2018-11-19] MEDS ORDERED: SENNA TAB PO SCH (21:00)
--- NOTE | 2018-11-20 14:47 | DS ---
Date/Time of Note Date/Time of Note DATE: 11/20/18 TIME: 14:43 Discharge Summary Admission/Discharge Info Admit Date/Time Nov 18, 2018 at 22:08 Discharge Date/Time Nov 19, 2018 at 13:30 Patient Condition: Good Hospital Course The patient was admitted for comprehensive interdisciplinary acute rehab. Upon arrival to the unit, they reported that they would prefer to take him home and would be able to provide 24-hour assistance upon discharge. Caregiver training was provided with 1. Physical therapy focused on caregiver training for bed mobility, transfers, and household ambulation in addition to stair mobility. 2. Occupational therapy for caregiver training focused on hygiene, grooming, dressing, bathing, and toileting activities. 3. Speech therapy for full cognitive assessment and family and caregiver training. 4. Rehabilitation nursing for medication review, stroke education . Patient is being discharged home with the recommendation of home health PT, OT and RN follow up. The DC meds are per the medication reconciliation sheet. The discharge equipment recommendations include: FWW, BSC, shower chair. The patient will follow up with PMD upon DC. Home Meds Reported Medications Alfuzosin Hcl* (Alfuzosin Hcl*) 10 Mg Tab.er.24h, 10 MG PO DAILY, #30 TAB.SA 11/11/18 Budesonide-Formoterol Fumarate* (Symbicort*) 80-4.5 Mcg Hfa.aer.ad, 2 PUFF INHALATION BID, BOTTLE 11/11/18 Albuterol Sulfate (Proair Respiclick) 90 Mcg Aer.pow.ba, 2 PUFFS INHALATION Q6 PRN for SHORTNESS OF BREATH, #1 BOTTLE 11/11/18 Carvedilol* (Carvedilol*) 25 Mg Tablet, 25 MG PO BID, #60 TAB 11/11/18 Clopidogrel Bisulfate* (Clopidogrel Bisulfate*) 75 Mg Tablet, 75 MG PO DAILY, #30 TAB 11/11/18 Dronedarone Hydrochloride* (Multaq*) 400 Mg Tablet, 400 MG PO BID, TAB 11/11/18 Apixaban* (Eliquis*) 5 Mg Tablet, 5 MG PO BID, TAB 11/11/18 Fluticasone Propionate* (Fluticasone Propionate* Nasal) 50 Mcg/[place] - 16 Gm [place].susp, 1 SPRAY NASAL DAILY, #1 BOTTLE TO EACH NOSTRIL 11/11/18 Furosemide* (Furosemide*) 20 Mg Tablet, 40 MG PO DAILY, #60 TAB 11/11/18 Hydrocortisone* Topical (Hydrocortisone* Topical) 2.5%-28.3 Gm Cream..g., 1 APPLIC TOP BID, TUB 11/11/18 Losartan Potassium* (Losartan Potassium*) 25 Mg Tablet, 25 MG PO BID, TAB 11/11/18 Ascorbic Acid (Vitamin C) 500 Mg Tab, 1000 MG PO DAILY, TAB 11/11/18 Spironolactone* (Aldactone*) 25 Mg Tablet, 12.5 MG PO DAILY, #30 TAB 11/11/18 Rosuvastatin Calcium* (Crestor*) 10 Mg Tablet, 10 MG PO QHS, #30 TAB 11/11/18 Nitroglycerin* (Nitroglycerin* SL) 0.4 Mg Tab.subl, 0.4 MG SL Q5MIN PRN for CHEST PAIN, BOTTLE 11/11/18 Methimazole* (Methimazole*) 5 Mg Tablet, 5 MG PO DAILY, TAB 11/11/18 Primary Care Provider Not On Staff Doctor EUSEBIO MENDOZA MD Nov 20, 2018 14:47
== END 2018-11-19 13:30 | disposition home health service (06) | DRG 57 ==
LOC: VRC 22:08
PROVIDERS: ADMIT Physical Medicine & Rehabilitation; ATTEND Internal Medicine Pulmonary Disease
DX: I69.951 Hemiplegia and hemiparesis following unspecified cerebrovascular disease affecting right dominant side (principal); I10 Essential (primary) hypertension; I25.10 Atherosclerotic heart disease of native coronary artery without angina pectoris; G31.84 Mild cognitive impairment of uncertain or unknown etiology; Z74.09 Other reduced mobility
CPT/HCPCS: 80053; 81003; 85025; 87081; 87086; 92523; 97161; 97165